=== PATIENT | male | born 1935 | race Caucasian/White ===

== ENCOUNTER 2017-05-15 09:05 | Day surgery (SDC) | payer MEDICARE ==
[~2017-05-15] VITALS: Ht 182.9 cm; Wt 93.0 kg
[~2017-05-15 09:05] MED LIST: /METO25TAB PO; ACETAMINOPHEN 325 MG TAB PO PRN; ASPI81TA85 PO; ATOR40TA75 PO; BENI5TAB PO; BSS with VANC/TOB/EPI for EYE CASES IR ONE; COUM1TAB14 PO; CYCLOPENTOLATE 2% OPHTH SOLN 2ML BTL OD ONE; FLOM5CAP PO; HEALON DUET (HEALON 10MG/ML 0.55ML & HEALON ENDOCOAT 30MG/ML 0.85ML) As Ordered ONE; HYDR12.55 PO; INVO100T PO; LIDOCAINE 1% SDV 5 ML VIAL As Ordered ONE; LIDOCAINE 3.5 % 1ML OPHTH TOPICAL GEL OU ONE; METO1TAB87 PO; MICR8CAP PO; MOXIFLOXACIN IN BSS 0.25MG/0.25ML INTRACAMERAL INJ (OR EYE ONLY)(J2280) As Ordered ONE; OFLOXACIN 0.3 % (OCUFLOX) OPTH SOL 5ML OD ONE; OMEP20CA3 PO; PACE400T PO; PHENYLEPHRINE 2.5% OPHTH SOL 2ML OD ONE; POVIDONE-IODINE 5% OPHTH PREP SOL 30ML As Ordered ONE; PRIL20CA PO; PROPARACAINE 0.5% OPHTH SOL 15ML OD PRN; ROPI1TAB PO; TRIAMCINOLONE PRES FR 40 MG/ML 1ML(TRIESENCE)(OR EYE ONLY)(J3300 PER 1MG) As Ordered ONE; TROPICAMIDE 1% OPHTH SOLN 2ML OD ONE; XERALTO PO
[2017-05-15] MEDS ORDERED: LR 1,000 ML IV ONE (09:15)
[2017-05-15] MEDS ORDERED: LIDOCAINE 1% MDV 20ML VIAL SQ ONE ×2 (09:15→10:15)
[2017-05-15] MEDS ORDERED: TROPICAMIDE 1% OPHTH SOLN 2ML As Ordered ONE (09:43)
[2017-05-15] MEDS ORDERED: CYCLOPENTOLATE 2% OPHTH SOLN 2ML BTL As Ordered ONE (09:43)
[2017-05-15] MEDS ORDERED: PHENYLEPHRINE 2.5% OPHTH SOL 2ML As Ordered ONE (09:43)
[2017-05-15] MEDS ORDERED: OFLOXACIN 0.3 % (OCUFLOX) OPTH SOL 5ML As Ordered ONE (09:43)
[2017-05-15] MEDS ORDERED: METOPROLOL TART 25 MG TABLET PO ONE (10:15)
[2017-05-15 10:21] VITALS: BP 187/87
[2017-05-15] MEDS ORDERED: MIDAZOLAM INJ 2 MG/2 ML VIAL (J2250) As Ordered ONE (10:49)
[2017-05-15] MEDS ORDERED: fentaNYL 100 MCG/2 ML INJECTION (J3010) As Ordered ONE (10:50)
[2017-05-15 11:35] VITALS: BP 185/86
[2017-05-15] MEDS ORDERED: AcetaZOLAMIDE 500 MG ER CAP PO ONE (11:45)
[2017-05-15] MEDS ORDERED: KETOROLAC 0.5% OPHTH SOLN OD ONE (11:45)
[2017-05-15] MEDS ORDERED: TRIMETHOBENZAMIDE 300 MG CAP PO PRN (11:45)
--- NOTE | 2017-05-17 09:54 | RO ---
DATE OF PROCEDURE: 05/15/2017 PREPROCEDURE DIAGNOSIS: Cataract of left eye. POSTPROCEDURE DIAGNOSIS: Cataract of left eye. PROCEDURE: Femtosecond laser and phacoemulsification of the intraocular lens with lens implantation left eye. Intraocular lens power used was Hoya, model 250, power 20 diopter. SURGEON: Richmond Head MD BLACKJACK DEALER: None. ANESTHESIA: Local IV standby. FINDINGS: Cataract of left eye. COMPLICATIONS: None. DESCRIPTION OF PROCEDURE: The patient was brought to the operating room and laid in supine position. A lid speculum was placed, and patient was brought under the femtosecond laser. After the satisfactory placement of the patient interface, primary incision, secondary incision, and arcuate incisions with lens fragmentation was done without any complication per plan. The patients interface was then removed and lid speculum removed. Patient was placed under the microscope. The eye was prepped and draped in a sterile fashion for ophthalmic surgery. Lid speculum was placed. The secondary incision was opened, and EndoCoat was injected into the anterior chamber. The temporal clear corneal incision was then opened and capsulorrhexis removed, followed by hydrodissection. This was followed by phacoemulsification of the lens within the capsular bag. Cortical material was then aspirated, and Healon was injected into the capsular bag. Intraocular lens was then placed. Excess Healon was aspirated. Wound was hydrated. The lid speculum was removed, and patient was returned to the recovery room in stable condition.
[2017-06-14] MEDS ORDERED: IMBR1CAP PO (13:15)
[2017-06-14] MEDS ORDERED: MULT1TAB10 PO (13:15)
[2017-06-14] MEDS ORDERED: PREDOPD OD (13:16)
== END 2017-05-15 11:53 | disposition home or self-care (01) ==
LOC: M SDC 09:05
PROVIDERS: ATTEND Ophthalmology
DX: H26.9 Unspecified cataract (principal); I25.10 Atherosclerotic heart disease of native coronary artery without angina pectoris; I10 Essential (primary) hypertension; E78.00 Pure hypercholesterolemia, unspecified; K59.00 Constipation, unspecified; K21.9 Gastro-esophageal reflux disease without esophagitis; Z79.899 Other long term (current) drug therapy; Z79.82 Long term (current) use of aspirin; Z79.01 Long term (current) use of anticoagulants; Z95.4 Presence of other heart-valve replacement; Z85.72 Personal history of non-Hodgkin lymphomas; Z92.21 Personal history of antineoplastic chemotherapy; Z92.3 Personal history of irradiation
CPT/HCPCS: 66984; J2250; J2280; J3010; J3300; V2632

== ENCOUNTER 2017-05-19 09:55 | Emergency (ER) | payer MEDICARE ==
[~2017-05-19] VITALS: Ht 182.9 cm; Wt 90.9 kg
[~2017-05-19 09:55] MED LIST changes: -ACETAMINOPHEN 325 MG TAB PO PRN; -BSS with VANC/TOB/EPI for EYE CASES IR ONE; -CYCLOPENTOLATE 2% OPHTH SOLN 2ML BTL OD ONE; -HEALON DUET (HEALON 10MG/ML 0.55ML & HEALON ENDOCOAT 30MG/ML 0.85ML) As Ordered ONE; -LIDOCAINE 1% SDV 5 ML VIAL As Ordered ONE; -LIDOCAINE 3.5 % 1ML OPHTH TOPICAL GEL OU ONE; -MOXIFLOXACIN IN BSS 0.25MG/0.25ML INTRACAMERAL INJ (OR EYE ONLY)(J2280) As Ordered ONE; -OFLOXACIN 0.3 % (OCUFLOX) OPTH SOL 5ML OD ONE; -PHENYLEPHRINE 2.5% OPHTH SOL 2ML OD ONE; -POVIDONE-IODINE 5% OPHTH PREP SOL 30ML As Ordered ONE; -PROPARACAINE 0.5% OPHTH SOL 15ML OD PRN; -TRIAMCINOLONE PRES FR 40 MG/ML 1ML(TRIESENCE)(OR EYE ONLY)(J3300 PER 1MG) As Ordered ONE; -TROPICAMIDE 1% OPHTH SOLN 2ML OD ONE
[2017-05-19] MEDS ORDERED: COLA100C5 PO (10:10)
[2017-05-19] MEDS ORDERED: FLEEENE4 PR (14:03)
[2017-05-19 14:18] VITALS: BP 163/79
[2017-06-14] MEDS ORDERED: IMBR1CAP PO (13:15)
[2017-06-14] MEDS ORDERED: MULT1TAB10 PO (13:15)
[2017-06-14] MEDS ORDERED: PREDOPD OD (13:16)
== END 2017-05-19 14:22 | disposition home or self-care (01) ==
LOC: M ED 09:55
DX: K59.00 Constipation, unspecified (principal); I25.10 Atherosclerotic heart disease of native coronary artery without angina pectoris; Z95.1 Presence of aortocoronary bypass graft

== ENCOUNTER 2017-05-21 04:44 | Emergency (ER) | payer MEDICARE ==
[~2017-05-21 04:44] MED LIST changes: +COLA100C5 PO; +FLEEENE4 PR
[2017-05-21] MEDS ORDERED: LACTULOSE 20 GM/30 ML SYRUP UD PO ONE (05:00)
[2017-05-21 05:33] VITALS: BP 136/75
[2017-06-14] MEDS ORDERED: IMBR1CAP PO (13:15)
[2017-06-14] MEDS ORDERED: MULT1TAB10 PO (13:15)
[2017-06-14] MEDS ORDERED: PREDOPD OD (13:16)
== END 2017-05-21 05:36 | disposition home or self-care (01) ==
LOC: M ED 04:44
DX: K59.00 Constipation, unspecified (principal); I25.10 Atherosclerotic heart disease of native coronary artery without angina pectoris; E11.9 Type 2 diabetes mellitus without complications; I10 Essential (primary) hypertension; E78.4 Other hyperlipidemia

== ENCOUNTER 2017-06-19 08:43 | Day surgery (SDC) | payer MEDICARE ==
[~2017-06-19] VITALS: Ht 182.9 cm; Wt 93.0 kg
[~2017-06-19 08:43] MED LIST changes: +BSS with VANC/TOB/EPI for EYE CASES IR ONE; +CYCLOPENTOLATE 2% OPHTH SOLN 2ML BTL OS ONE; +HEALON DUET (HEALON 10MG/ML 0.55ML & HEALON ENDOCOAT 30MG/ML 0.85ML) As Ordered ONE; +IMBR1CAP PO; +LIDOCAINE 1% SDV 5 ML VIAL As Ordered ONE; +LIDOCAINE 3.5 % 1ML OPHTH TOPICAL GEL OU ONE; +MOXIFLOXACIN IN BSS 0.25MG/0.25ML INTRACAMERAL INJ (OR EYE ONLY)(J2280) As Ordered ONE; +MULT1TAB10 PO; +OFLOXACIN 0.3 % (OCUFLOX) OPTH SOL 5ML OS ONE; +PHENYLEPHRINE 2.5% OPHTH SOL 2ML OS ONE; +POVIDONE-IODINE 5% OPHTH PREP SOL 30ML As Ordered ONE; +PREDOPD OD; +TRIAMCINOLONE PRES FR 40 MG/ML 1ML(TRIESENCE)(OR EYE ONLY)(J3300 PER 1MG) As Ordered ONE; +TROPICAMIDE 1% OPHTH SOLN 2ML OS ONE
[2017-06-19] MEDS ORDERED: LR 500 ML IV ONE (09:00)
[2017-06-19] MEDS ORDERED: MIDAZOLAM INJ 2 MG/2 ML VIAL (J2250) As Ordered ONE (09:27)
[2017-06-19] MEDS ORDERED: fentaNYL 100 MCG/2 ML INJECTION (J3010) As Ordered ONE (09:27)
[2017-06-19] MEDS ORDERED: CEFUROXIME 1MG/0.1ML INTRACAMERAL INJ As Ordered ONE (09:34)
[2017-06-19 10:15] VITALS: BP 130/60
--- NOTE | 2017-06-19 12:05 | RO ---
DATE OF PROCEDURE: 06/19/2017 PREPROCEDURE DIAGNOSIS: Cataract of left eye. POSTPROCEDURE DIAGNOSIS: Cataract of left eye. PROCEDURE: Femtosecond laser with phacoemulsification and intraocular lens implantation of Mic, power 19.5. SURGEON: Richmond Head MD DISABILITY RATER: None. ANESTHESIA: Local IV standby. COMPLICATIONS: None. DESCRIPTION OF PROCEDURE: The patient was brought to the operating room and laid in supine position. A lid speculum was placed, and patient was brought under the femtosecond laser. After the satisfactory placement of the patient interface, primary incision, secondary incision, and arcuate incisions with lens fragmentation was done without any complication per plan. The patients interface was then removed and lid speculum removed. Patient was placed under the microscope. The eye was prepped and draped in a sterile fashion for ophthalmic surgery. Lid speculum was placed. The secondary incision was opened, and EndoCoat was injected into the anterior chamber. The temporal clear corneal incision was then opened and capsulorrhexis removed, followed by hydrodissection. This was followed by phacoemulsification of the lens within the capsular bag. Cortical material was then aspirated, and Healon was injected into the capsular bag. Intraocular lens was then placed. Excess Healon was aspirated. Wound was hydrated. The lid speculum was removed, and patient was returned to the recovery room in stable condition.
== END 2017-06-19 10:35 | disposition home or self-care (01) ==
LOC: M SDC 08:43
PROVIDERS: ATTEND Ophthalmology
DX: H26.9 Unspecified cataract (principal); I49.9 Cardiac arrhythmia, unspecified; I10 Essential (primary) hypertension; E78.00 Pure hypercholesterolemia, unspecified; K59.00 Constipation, unspecified; K21.9 Gastro-esophageal reflux disease without esophagitis; M12.9 Arthropathy, unspecified; Z85.72 Personal history of non-Hodgkin lymphomas; Z92.21 Personal history of antineoplastic chemotherapy; Z92.3 Personal history of irradiation; Z95.4 Presence of other heart-valve replacement; Z79.899 Other long term (current) drug therapy; Z79.82 Long term (current) use of aspirin; Z79.01 Long term (current) use of anticoagulants
CPT/HCPCS: 66984; J2250; J2280; J3010; J3300; V2632

== ENCOUNTER → 2017-11-25 | Outpatient (REF) | payer MEDICARE, MEDICAID ==
[2017-11-25 14:22] LABS: FERRITIN 5 NG/ML (26-388); IRON (FE) 13 UG/DL (65-175); PERCENT SATURATION 3.5 % (19.7-50.0); TOTAL IRON BINDING CAPACITY 369 UG/DL (250-450)
== END ==
LOC: M LAB REF 13:36
DX: C91.10 Chronic lymphocytic leukemia of B-cell type not having achieved remission (principal)
CPT/HCPCS: 83550

== ENCOUNTER → 2018-01-27 | Outpatient (REF) | payer MEDICARE, MEDICAID ==
[2018-01-27 14:08] LABS: FERRITIN 46 NG/ML (26-388); IRON (FE) 16 UG/DL (65-175); PERCENT SATURATION 6.8 % (19.7-50.0); TOTAL IRON BINDING CAPACITY 235 UG/DL (250-450)
== END ==
LOC: M LAB REF 13:19
DX: C85.90 Non-Hodgkin lymphoma, unspecified, unspecified site (principal)
CPT/HCPCS: 83550

== ENCOUNTER → 2018-07-31 | Outpatient (REF) | payer MEDICARE | LOC: M LAB REF 08-01 12:49 | DX: D50.9 Iron deficiency anemia, unspecified (principal) | CPT/HCPCS: 82270 ==

== ENCOUNTER 2018-09-11 10:49 | Day surgery (SDC) | payer MEDICARE ==
[~2018-09-11] VITALS: Ht 182.9 cm; Wt 95.3 kg
[~2018-09-11 10:49] MED LIST changes: +AZEL0.05; -BSS with VANC/TOB/EPI for EYE CASES IR ONE; -CYCLOPENTOLATE 2% OPHTH SOLN 2ML BTL OS ONE; +FLOM0.4C39 PO; -FLOM5CAP PO; -HEALON DUET (HEALON 10MG/ML 0.55ML & HEALON ENDOCOAT 30MG/ML 0.85ML) As Ordered ONE; -LIDOCAINE 1% SDV 5 ML VIAL As Ordered ONE; -LIDOCAINE 3.5 % 1ML OPHTH TOPICAL GEL OU ONE; -MOXIFLOXACIN IN BSS 0.25MG/0.25ML INTRACAMERAL INJ (OR EYE ONLY)(J2280) As Ordered ONE; +NS 1,000 ML IV ONE; -OFLOXACIN 0.3 % (OCUFLOX) OPTH SOL 5ML OS ONE; -PHENYLEPHRINE 2.5% OPHTH SOL 2ML OS ONE; -POVIDONE-IODINE 5% OPHTH PREP SOL 30ML As Ordered ONE; -TRIAMCINOLONE PRES FR 40 MG/ML 1ML(TRIESENCE)(OR EYE ONLY)(J3300 PER 1MG) As Ordered ONE; -TROPICAMIDE 1% OPHTH SOLN 2ML OS ONE; +WARF-20 PO
[2018-09-11] MEDS ORDERED: LIDOCAINE 2% INJ 100 MG/5 ML SDV (FOR ANES.) As Ordered ONE (11:52)
[2018-09-11] MEDS ORDERED: PROPOFOL 200 MG/20 ML VIAL As Ordered ONE (11:52)
--- NOTE | 2018-09-11 11:59 | ROOR ---
Patient Name: Chris Ledezma Procedure Date: 09/11/2018 11:48 AM Date of : 1935 Age: 82 Room: [facility] Gender: Male Note Status: Finalized Procedure: Upper GI endoscopy Indications: Iron deficiency anemia Providers: Alexander Sepulveda Jr, MD Referring MD: SINDHU RODRIGUEZ MD Requesting Provider: Medicines: Propofol per Anesthesia Complications: No immediate complications. Procedure: Pre-Anesthesia Assessment: - Prior to the procedure, a History and Physical was performed, and patient medications and allergies were reviewed. The patient is competent. The risks and benefits of the procedure and the sedation options and risks were discussed with the patient. All questions were answered and informed consent was obtained. Patient identification and proposed procedure were verified by the physician and the nurse in the pre-procedure area and in the procedure room. Mental Status Examination: alert and oriented. Airway Examination: normal oropharyngeal airway and neck mobility. Respiratory Examination: clear to auscultation. CV Examination: normal. ASA Grade Assessment: II - A patient with mild systemic disease. After reviewing the risks and benefits, the patient was deemed in satisfactory condition to undergo the procedure. The anesthesia plan was to use moderate sedation / analgesia (conscious sedation). Immediately prior to administration of medications, the patient was re-assessed for adequacy to receive sedatives. The heart rate, respiratory rate, oxygen saturations, blood pressure, adequacy of pulmonary ventilation, and response to care were monitored throughout the procedure. The physical status of the patient was re-assessed after the procedure. The Endoscope was introduced through the mouth, and advanced to the second part of duodenum. The upper GI endoscopy was accomplished without difficulty. The patient tolerated the procedure well. Findings: The upper third of the esophagus, middle third of the esophagus, lower third of the esophagus and gastroesophageal junction were normal. Patchy moderately erythematous mucosa without bleeding was found in the gastric body and in the prepyloric region of the stomach. The cardia and gastric antrum were normal. The duodenal bulb, first portion of the duodenum and second portion of the duodenum were normal. Impression: - Normal upper third of esophagus, middle third of esophagus, lower third of esophagus and gastroesophageal junction. - Erythematous mucosa in the gastric body and prepyloric region of the stomach. - Normal cardia and antrum. - Normal duodenal bulb, first portion of the duodenum and second portion of the duodenum. - No specimens collected. Recommendation: - Discharge patient to home (ambulatory). - Return to primary care physician as previously scheduled. Alexander Sepulveda MD Alexander Sepulveda Jr, MD 09/11/2018 11:59:19 AM This report has been signed electronically. Number of Addenda: 0 Note Initiated On: 09/11/2018 11:48 AM Estimated Blood Loss: Estimated blood loss: none.
--- NOTE | 2018-09-11 12:16 | ROOR ---
Patient Name: Chris Ledezma Procedure Date: 09/11/2018 11:49 AM Date of : 1935 Age: 82 Room: [facility] Gender: Male Note Status: Finalized Procedure: Colonoscopy Indications: Iron deficiency anemia Providers: Alexander Sepulveda Jr, MD Referring MD: SINDHU RODRIGUEZ MD Requesting Provider: Medicines: Propofol per Anesthesia Complications: No immediate complications. Procedure: Pre-Anesthesia Assessment: - Prior to the procedure, a History and Physical was performed, and patient medications and allergies were reviewed. The patient is competent. The risks and benefits of the procedure and the sedation options and risks were discussed with the patient. All questions were answered and informed consent was obtained. Patient identification and proposed procedure were verified by the physician and the nurse in the pre-procedure area and in the procedure room. Mental Status Examination: alert and oriented. Airway Examination: normal oropharyngeal airway and neck mobility. Respiratory Examination: clear to auscultation. CV Examination: normal. ASA Grade Assessment: II - A patient with mild systemic disease. After reviewing the risks and benefits, the patient was deemed in satisfactory condition to undergo the procedure. The anesthesia plan was to use moderate sedation / analgesia (conscious sedation). Immediately prior to administration of medications, the patient was re-assessed for adequacy to receive sedatives. The heart rate, respiratory rate, oxygen saturations, blood pressure, adequacy of pulmonary ventilation, and response to care were monitored throughout the procedure. The physical status of the patient was re-assessed after the procedure. The Colonoscope was introduced through the anus and advanced to the cecum, identified by appendiceal orifice and ileocecal valve. The colonoscopy was performed without difficulty. The patient tolerated the procedure well. The quality of the bowel preparation was adequate. Findings: The rectum, recto-sigmoid colon, sigmoid colon, descending colon, transverse colon, ascending colon, cecum, appendiceal orifice and ileocecal valve appeared normal. Impression: - The rectum, recto-sigmoid colon, sigmoid colon, descending colon, transverse colon, ascending colon, cecum, appendiceal orifice and ileocecal valve are normal. - No specimens collected. Recommendation: - Discharge patient to home (ambulatory). - Repeat colonoscopy in 10 years for screening purposes. Alexander Sepulveda MD Alexander Sepulveda Jr, MD 09/11/2018 12:16:17 PM This report has been signed electronically. Number of Addenda: 0 Note Initiated On: 09/11/2018 11:49 AM Estimated Blood Loss: Estimated blood loss: none.
[2018-09-11 12:42] VITALS: BP 165/77
[2018-09-17] MEDS ORDERED: AZEL0.055 (09:18)
[2018-09-17] MEDS ORDERED: CENTCHW4 PO (09:18)
[2018-09-17] MEDS ORDERED: METO1TAB87 PO (10:57)
[2018-09-17] MEDS ORDERED: IMBR1CAP PO (10:57)
== END 2018-09-11 12:53 | disposition home or self-care (01) ==
LOC: M OPP 10:49
PROVIDERS: ATTEND Surgery
DX: D50.9 Iron deficiency anemia, unspecified (principal); K31.89 Other diseases of stomach and duodenum

== ENCOUNTER 2018-11-01 09:14 | Emergency (ER) | payer MEDICARE ==
[~2018-11-01] VITALS: Ht 182.9 cm; Wt 90.9 kg
[~2018-11-01 09:14] MED LIST changes: +AZEL0.055; +CENTCHW4 PO; -NS 1,000 ML IV ONE; +[UNRECOGNIZED DRUG - CODE] PO
[2018-11-01 09:15] VITALS: BP 178/90
[2018-11-01] MEDS ORDERED: NASA0.9A NARES (09:40)
[2018-11-01] MEDS ORDERED: AMOX500T2 PO ×2 (09:40→09:47)
== END 2018-11-01 09:57 | disposition home or self-care (01) ==
LOC: M ED 09:14
DX: J01.90 Acute sinusitis, unspecified (principal); I10 Essential (primary) hypertension; E78.5 Hyperlipidemia, unspecified; I25.10 Atherosclerotic heart disease of native coronary artery without angina pectoris; K21.9 Gastro-esophageal reflux disease without esophagitis; R01.1 Cardiac murmur, unspecified; Z79.899 Other long term (current) drug therapy; Z79.01 Long term (current) use of anticoagulants

== ENCOUNTER → 2019-03-26 | Outpatient (CLI) | payer MEDICARE ==
[~2019-03-26] MED LIST changes: -/METO25TAB PO; +AMOX500T2 PO; +NASA0.9A NARES
[2019-03-26 09:07] LABS: HEMATOCRIT 45.3 % (42.0-52.0); MEAN CORPUSCULAR HEMOGLOBIN 29.5 pg (27.0-33.0); MEAN CORPUSCULAR HGB CONC 33.1 g/dl (32.0-36.5); MEAN CORPUSCULAR VOLUME 89.2 fl (80.0-96.0); RED BLOOD COUNT 5.08 10^6/uL (4.30-6.10); WHITE BLOOD COUNT 4.4 10^3/uL (4.0-10.0)
[2019-03-26 09:08] LABS: PLATELET COUNT, AUTOMATED 94 10^3/uL (150-450)
[2019-03-26 09:42] LABS: ALBUMIN 3.6 GM/DL (3.2-5.2); BILIRUBIN,TOTAL 0.7 MG/DL (0.2-1.0); CALCIUM LEVEL 8.5 MG/DL (8.8-10.2); CHOLESTEROL RISK RATIO 3.102 (<5); CREATININE FOR GFR 1.26 MG/DL (0.70-1.30); GLOMERULAR FILTRATION RATE 58.5 (>35); POTASSIUM SERUM 3.8 MEQ/L (3.5-5.1); PROSTATIC SPECIFIC AG MONITOR 7.99 NG/ML (< 4.00); THYROID STIMULATING HORMONE 4.37 uIU/ML (0.358-3.740); TOTAL PROTEIN 6.2 GM/DL (6.4-8.2)
[2019-03-26 10:07] LABS: HEMOGLOBIN A1c 5.5 %
[2019-03-26 10:37] LABS: TOTAL 25(OH) VITAMIN D 27.1 NG/ML (30.0-100.0)
== END ==
LOC: M WUC 08:08
PROVIDERS: ATTEND Family Medicine
DX: D64.9 Anemia, unspecified (principal); R53.83 Other fatigue; E03.9 Hypothyroidism, unspecified; Z79.01 Long term (current) use of anticoagulants

== ENCOUNTER 2019-04-13 18:35 | Emergency (ER) | payer MEDICARE ==
[~2019-04-13] VITALS: Ht 182.9 cm; Wt 90.5 kg
[~2019-04-13 18:35] MED LIST changes: -OMEP20CA3 PO; +OMEP20CA4 PO
[2019-04-13] MEDS ORDERED: WARF05TA PO (18:58)
[2019-04-13] MEDS ORDERED: RANI300T PO (18:59)
[2019-04-13] MEDS ORDERED: hydrALAZINE INJ 20 MG/ML VIAL IV STA (19:18)
[2019-04-13] MEDS ORDERED: ONDANSETRON 4MG/2ML VIAL (J2405) IV ONE (19:30)
[2019-04-13] MEDS ORDERED: MORPHINE 4 MG/ML 1ML VIAL/SYRINGE (J2270) IV ONE (19:30)
[2019-04-13 20:10] LABS: INR 2.62; PARTIAL THROMBOPLASTIN TIME 35.4 SECONDS (25.0-38.4); PROTHROMBIN TIME 27.9 SECONDS (11.8-14.0)
[2019-04-13 20:18] VITALS: BP 209/90
[2019-04-13 20:24] LABS: ALBUMIN 3.4 GM/DL (3.2-5.2); BILIRUBIN,DIRECT 0.2 MG/DL (0.0-0.2); BILIRUBIN,TOTAL 0.5 MG/DL (0.2-1.0); CALCIUM LEVEL 8.5 MG/DL (8.8-10.2); CREATININE FOR GFR 1.28 MG/DL (0.70-1.30); GLOMERULAR FILTRATION RATE 57.4 (>35); MB/CK RELATIVE INDEX 2.38 (< OR =4); POTASSIUM SERUM 4.3 MEQ/L (3.5-5.1); TOTAL PROTEIN 6.2 GM/DL (6.4-8.2); TROPONIN I 0.02 NG/ML (< 0.10)
[2019-04-13 20:26] LABS: BASO % 0.2 % (0.0-1.0); EOS # 0.1 10^3/uL (0.0-0.50); EOS % 1.4 % (0.0-3.0); HEMATOCRIT 44.3 % (42.0-52.0); HEMOGLOBIN 14.4 g/dl (13.5-17.5); LYMPH # 0.6 10^3/uL (1.5-4.5); LYMPH % 10.1 % (24.0-44.0); MEAN CORPUSCULAR HEMOGLOBIN 28.7 pg (27.0-33.0); MEAN CORPUSCULAR HGB CONC 32.5 g/dl (32.0-36.5); MEAN CORPUSCULAR VOLUME 88.4 fl (80.0-96.0); MONO # 0.4 10^3/uL (0.0-0.8); MONO % 7.1 % (0.0-5.0); NEUTROPHILS # 4.5 10^3/uL (1.8-7.7); PLATELET COUNT, AUTOMATED 100 10^3/uL (150-450); RED BLOOD COUNT 5.01 10^6/uL (4.30-6.10); WHITE BLOOD COUNT 5.5 10^3/uL (4.0-10.0)
--- NOTE | 2019-04-13 20:55 | REPVR ---
EXAM: CT Abdomen and Pelvis Without Contrast EXAM DATE/TIME: 04/13/2019 7:30 PM CLINICAL HISTORY: 83 years old, male; Abdominal pain; Flank; Right; Additional info: Right flank pain; R/O stone TECHNIQUE: Imaging protocol: Axial computed tomography images of the abdomen and pelvis without contrast. Coronal and sagittal reformatted images were created and reviewed. Radiation optimization: All CT scans at this facility use at least one of these dose optimization techniques: automated exposure control; mA and/or kV adjustment per patient size (includes targeted exams where dose is matched to clinical indication); or iterative reconstruction. COMPARISON: CR Spine. Lumbosacral, complete 06/07/2016 4:39 AM FINDINGS: Lungs: Linear stranding and groundglass at the lung bases, likely due to atelectasis and/or scarring. Liver: Coarse calcified hepatic granulomata. Gallbladder and bile ducts: No radiodense gallstones. No biliary ductal dilatation. Pancreas: Unremarkable. Spleen: Mild splenomegaly. Coarse calcified splenic granulomata. Adrenals: Unremarkable. Kidneys and ureters: Left renal atrophy with associated cortical cysts, measuring up to 1.3 x 1.2 cm. Nonobstructing bilateral renal calculi. No hydronephrosis. Stomach and bowel: Moderate amount of retained stool in the colon. Scattered colonic diverticula without evidence of diverticulitis. No obstruction. No bowel wall thickening. No pneumatosis. Appendix: Normal. Intraperitoneal space: No free fluid. No organized fluid collection. No free air. Vasculature: Moderate atherosclerotic disease. No aneurysm. Lymph nodes: No pathologically enlarged lymph nodes. Bladder: Mild circumferential urinary bladder wall thickening, possibly secondary to underdistention and/or chronic bladder outlet obstruction. Reproductive: Mildly enlarged prostate. Bones/joints: No acute osseous abnormality. Osteopenia. Degenerative changes. Large Schmorl's nodes at L1-L2. Soft tissues: Tiny, fat containing umbilical hernia. IMPRESSION: 1. Limited noncontrast examination. 2. Nonobstructing bilateral renal calculi. No hydronephrosis. 3. Mildly enlarged prostate. Correlate with clinical exam and PSA levels. 4. Mild circumferential urinary bladder wall thickening, possibly secondary to underdistention and/or chronic l obstruction. Correlate with urinalysis to exclude cystitis. 5. Additional findings, as above. Electronically signed by: Kevin Wilcox On 04/13/2019 20:55:02 PM
--- NOTE | 2019-04-13 20:59 | ECGEPIP ---
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
[2019-04-13 23:15] VITALS: BP 158/79
== END 2019-04-13 23:31 | disposition home or self-care (01) ==
LOC: M ED 18:35
DX: N20.0 Calculus of kidney (principal); I10 Essential (primary) hypertension; Z79.899 Other long term (current) drug therapy; Z79.01 Long term (current) use of anticoagulants
CPT/HCPCS: 74176; 80048; 80076; 81001; 82550; 82553; 83605; 83690; 84484; 85025; 85610; 85730; 86850; 86900; 86901; 93005; 96374; 96375; 99285; J2270; J2405

== ENCOUNTER → 2019-05-18 | Outpatient (CLI) | payer MEDICARE ==
[~2019-05-18] MED LIST changes: +RANI300T PO; +WARF05TA PO
== END ==
LOC: M WUC 10:53
PROVIDERS: ATTEND Family Medicine
DX: R97.20 Elevated prostate specific antigen [PSA] (principal)

== ENCOUNTER → 2019-06-30 | Outpatient (CLI) | payer MEDICARE ==
--- NOTE | 2019-06-30 13:56 | REP ---
Prostate sonography: History: Elevated PSA. Sonographic findings: Trans rectal prostate sonography demonstrates unremarkable seminal vesicles. Prostate gland is heterogeneously enlarged with calcifications and cystic changes noted. Glandular dimensions are measured at 5.4 x 3.1 x 4.8 cm with a calculated glandular volume of 41.4 ml. Transrectal sonographic guidance is provided to Dr. Turner who performed trans rectal ultrasound guided needle biopsy procedure . Electronically Signed by Jermaine Ulloa MD 06/30/2019 01:47 P
== END ==
LOC: M SMT PRO 08:58
PROVIDERS: ATTEND Urology
DX: R97.20 Elevated prostate specific antigen [PSA] (principal); N40.2 Nodular prostate without lower urinary tract symptoms
CPT/HCPCS: 55700; 76872; 76942; G0416

== ENCOUNTER 2019-07-17 22:55 | Emergency (ER) | payer MEDICARE ==
[~2019-07-17] VITALS: Ht 182.9 cm; Wt 93.2 kg
[2019-07-17 23:11] VITALS: BP 152/82
[2019-07-18 00:40] LABS: BASO % 0.3 % (0.0-1.0); EOS % 0.6 % (0.0-3.0); HEMATOCRIT 46.6 % (42.0-52.0); HEMOGLOBIN 15.3 g/dl (13.5-17.5); LYMPH # 0.5 10^3/uL (1.5-5.0); LYMPH % 7.7 % (24.0-44.0); MEAN CORPUSCULAR HGB CONC 32.8 g/dl (32.0-36.5); MEAN CORPUSCULAR VOLUME 88.4 fl (80.0-96.0); MONO # 0.4 10^3/uL (0.0-0.8); NEUTROPHILS # 5.7 10^3/uL (1.5-8.5); RED BLOOD COUNT 5.27 10^6/uL (4.30-6.10); WHITE BLOOD COUNT 6.7 10^3/uL (4.0-10.0)
[2019-07-18 00:41] LABS: PLATELET COUNT, AUTOMATED 91 10^3/uL (150-450)
[2019-07-18 01:10] LABS: ALBUMIN 3.6 GM/DL (3.2-5.2); BILIRUBIN,DIRECT 0.2 MG/DL (0.0-0.2); BILIRUBIN,TOTAL 0.5 MG/DL (0.2-1.0); CALCIUM LEVEL 8.6 MG/DL (8.8-10.2); CREATININE FOR GFR 1.27 MG/DL (0.70-1.30); GLOMERULAR FILTRATION RATE 57.9 (>35); POTASSIUM SERUM 4.1 MEQ/L (3.5-5.1)
[2019-07-18] MEDS ORDERED: ACETAMINOPHEN 500 MG TAB PO ONE (01:45)
[2019-07-18] MEDS ORDERED: LIDOCAINE 5% (LIDODERM) PATCH TD ONE (01:45)
[2019-07-18] MEDS ORDERED: ACET-683 PO (01:51)
[2019-07-18] MEDS ORDERED: LIDO5TD TOP (01:51)
[2019-07-18] MEDS ORDERED: **NOTE PATIENT COMMENT** MISC XX SCH (21:00)
== END 2019-07-18 02:05 | disposition home or self-care (01) ==
LOC: M ED 22:55
DX: S39.92XA Unspecified injury of lower back, initial encounter (principal); X58.XXXA Exposure to other specified factors, initial encounter; Y92.89 Other specified places as the place of occurrence of the external cause; M62.830 Muscle spasm of back; I10 Essential (primary) hypertension; E78.5 Hyperlipidemia, unspecified; K21.9 Gastro-esophageal reflux disease without esophagitis; Z79.899 Other long term (current) drug therapy; Z79.01 Long term (current) use of anticoagulants

== ENCOUNTER 2019-08-12 01:55 | Emergency (ER) | payer MEDICARE ==
[~2019-08-12] VITALS: Ht 182.9 cm; Wt 90.9 kg
[~2019-08-12 01:55] MED LIST changes: +ACET-683 PO; +LIDO5TD TOP
[2019-08-12] MEDS ORDERED: ONDANSETRON 4MG/2ML VIAL (J2405) IV ONE (02:45)
[2019-08-12] MEDS: MORPHINE 2 MG/ML 1ML VIAL (J2270) IV PRN ×2 (03:04→04:25)
[2019-08-12 03:06] LABS: BASO % 0.4 % (0.0-1.0); EOS # 0.1 10^3/uL (0.0-0.5); EOS % 1.3 % (0.0-3.0); HEMATOCRIT 47.3 % (42.0-52.0); HEMOGLOBIN 14.8 g/dl (13.5-17.5); LYMPH # 0.8 10^3/uL (1.5-5.0); LYMPH % 16.4 % (24.0-44.0); MEAN CORPUSCULAR HEMOGLOBIN 28.2 pg (27.0-33.0); MEAN CORPUSCULAR HGB CONC 31.3 g/dl (32.0-36.5); MEAN CORPUSCULAR VOLUME 90.3 fl (80.0-96.0); MONO # 0.5 10^3/uL (0.0-0.8); MONO % 11.1 % (0.0-5.0); NEUTROPHILS # 3.3 10^3/uL (1.5-8.5); NEUTROPHILS % 70.4 % (36.0-66.0); PLATELET COUNT, AUTOMATED 105 10^3/uL (150-450); RED BLOOD COUNT 5.24 10^6/uL (4.30-6.10); WHITE BLOOD COUNT 4.7 10^3/uL (4.0-10.0)
[2019-08-12 03:58] LABS: BLOOD UREA NITROGEN 18 MG/DL (7-18); C REACTIVE PROTEIN QUANTITATIV < 0.30 MG/DL (0.00-0.30); CALCIUM LEVEL 8.7 MG/DL (8.8-10.2); CARBON DIOXIDE LEVEL 27 MEQ/L (21-32); CHLORIDE LEVEL 109 MEQ/L (98-107); CREATININE FOR GFR 1.34 MG/DL (0.70-1.30); GLOMERULAR FILTRATION RATE 54.5 (>35); GLUCOSE, FASTING 103 MG/DL (70-100); POTASSIUM SERUM 3.9 MEQ/L (3.5-5.1); SODIUM LEVEL 142 MEQ/L (136-145)
--- NOTE | 2019-08-12 04:15 | REPVR ---
PROCEDURE INFORMATION: Exam: MR Lumbar Spine Without Contrast. Exam date and time: 08/12/2019 3:37 AM Clinical history: 83 years old, male; Patient HX: PT states HX prostate CA, as well as chronic low back pain, nki, pain has worsened over past several months PT denies prior lumbar mri but xrays are on pacs; Additional info: Acute left l2, l3 radiculopathy, HX cll, prostate CA TECHNIQUE: Imaging protocol: Multiplanar magnetic resonance images of the lumbar spine without contrast. COMPARISON: CR Spine. Lumbosacral, complete 06/07/2016 4:39 AM FINDINGS: Mild loss of inferior endplate height involving L1 and minimal loss of superior endplate involving L2. Mild associated edema more prominent at L1. Remainder demonstrates preserved height and AP alignment. Multilevel disc desiccation. Degenerative endplate signal without evidence of discitis/osteomyelitis. Conus medullaris terminates at L1. No epidural fluid collection. L1-L2: Minimal disc bulge without significant central or foraminal stenosis. L2-L3: Mild disc bulge and mild bilateral facet joint arthropathy. No significant central or foraminal stenosis. L2-L3: Mild to moderate disc bulge and mild bilateral facet joint arthropathy. No significant central or foraminal stenosis. L4-L5: Mild disc bulge with mild bilateral facet joint arthropathy. No significant central canal stenosis. There is mild left foraminal stenosis. L5-S1: Mild disc bulge. No significant central canal stenosis. There is moderate bilateral foraminal stenosis. IMPRESSION: 1. Mild loss of inferior endplate height involving L1 and minimal loss of superior endplate height involving L2. There mild is associated edema, and findings are likely subacute. 2. Mild for age degenerative change without significant central canal compromise. Electronically signed by: Frank Olivares On 08/12/2019 04:15:35 AM
[2019-08-12 04:21] LABS: ERYTHROCYTE SEDIMENTATION RATE 2 mm/hr (0-20)
[2019-08-12] MEDS ORDERED: CYCL5TAB PO (04:27)
[2019-08-12 06:24] VITALS: BP 178/94
[2019-08-13] MEDS ORDERED: CYCL5TAB PO (10:11)
[2019-08-13] MEDS ORDERED: MULT-40 PO (10:11)
[2019-08-13] MEDS ORDERED: EQL0.65S (10:11)
[2019-08-13] MEDS ORDERED: WARF-60 PO (10:11)
== END 2019-08-12 06:25 | disposition home or self-care (01) ==
LOC: M ED 01:55
DX: M51.36 Other intervertebral disc degeneration, lumbar region (principal); M48.07 Spinal stenosis, lumbosacral region; I10 Essential (primary) hypertension; E78.5 Hyperlipidemia, unspecified; C91.10 Chronic lymphocytic leukemia of B-cell type not having achieved remission; Z79.899 Other long term (current) drug therapy; Z79.01 Long term (current) use of anticoagulants

== ENCOUNTER 2019-08-13 07:09 | Inpatient (IN) | payer MEDICARE ==
[2019-08-13] VITALS (7 sets, daily range): BP systolic 174–236; BP diastolic 88–126
[~2019-08-13] VITALS: Ht 182.9 cm; Wt 89.2 kg
[~2019-08-13 07:09] MED LIST changes: +CYCL5TAB PO
[2019-08-13 08:39] LABS: HEMATOCRIT 45.6 % (42.0-52.0); HEMOGLOBIN 14.8 g/dl (13.5-17.5); MEAN CORPUSCULAR HEMOGLOBIN 28.6 pg (27.0-33.0); MEAN CORPUSCULAR HGB CONC 32.5 g/dl (32.0-36.5); MEAN CORPUSCULAR VOLUME 88.2 fl (80.0-96.0); PLATELET COUNT, AUTOMATED 108 10^3/uL (150-450); RED BLOOD COUNT 5.17 10^6/uL (4.30-6.10); WHITE BLOOD COUNT 5.5 10^3/uL (4.0-10.0)
[2019-08-13 08:50] LABS: PROTHROMBIN TIME 101.4 SECONDS (11.8-14.0)
[2019-08-13 08:56] LABS: INR 13.17
[2019-08-13 09:04] LABS: ALBUMIN 3.6 GM/DL (3.2-5.2); CREATININE FOR GFR 1.24 MG/DL (0.70-1.30); GLOMERULAR FILTRATION RATE 59.6 (>35); POTASSIUM SERUM 5.9 MEQ/L (3.5-5.1)
--- NOTE | 2019-08-13 09:16 | REP ---
CT abdomen and pelvis without IV or oral contrast: History: Hematuria. Back pain. Left-sided pain. Comparison CT study April 13, 2019. CT findings: Preliminary digital senior research executive radiograph demonstrates median sternotomy, aortic valve replacement, and left atrial appendage clip in the chest. Vascular calcification is noted. Bowel gas pattern is unremarkable. There are mild linear fibrotic changes in the lung bases. There are granulomatous calcifications in the liver and the spleen. No focal liver mass lesion is seen. No abnormality is noted in the gallbladder. The pancreas is unremarkable. No adrenal lesion is observed. There is profound atrophy of the left kidney and extensive atherosclerotic calcific plaquing is seen in the left renal artery. There is a small left renal cyst. There is a 3 mm intrarenal calculus in the lower pole collecting system of the left kidney as well. These findings are unchanged. The there is no evidence of hydronephrosis or other morphologic abnormality in the right kidney. No intrarenal calculus is seen in the right kidney today. No ureteral calculus. No retroperitoneal mass or adenopathy is observed. Small and large intestinal bowel loops are unremarkable in the abdomen and pelvis. There is sigmoid colon diverticulosis without CT evidence of diverticulitis. Urinary bladder is largely empty but appears intact. There are dystrophic calcifications in the enlarged prostate gland. Seminal vesicles are unremarkable. No pelvic mass or adenopathy is observed. No abdominal wall defect is seen. There are degenerative spondylosis changes in the lumbar spine. The appendix is not directly visualized. Impression: Marked atrophy left kidney. Intrarenal calculus lower pole left kidney without hydronephrosis. No other urinary tract calculus seen. Enlarged prostate. Left colonic diverticulosis. The appendix is not directly visualized. Electronically Signed by Jermaine Ulloa MD 08/13/2019 10:53 A
[2019-08-13] MEDS ORDERED: hydrALAZINE INJ 20 MG/ML VIAL IV STA ×2 (09:20→10:31)
[2019-08-13] MEDS ORDERED: PROTHROMBIN COMPLEX CONCEN IV ONE (09:30)
[2019-08-13] MEDS ORDERED: FLUID PLACE HOLDER IV ONE (09:30)
[2019-08-13] MEDS ORDERED: ACETAMINOPHEN 500 MG TAB PO ONE (09:45)
[2019-08-13] MEDS ORDERED: EQL0.65S (10:11)
[2019-08-13] MEDS ORDERED: WARF-60 PO (10:11)
[2019-08-13] MEDS ORDERED: CYCL5TAB PO (10:11)
[2019-08-13] MEDS ORDERED: MULT-40 PO (10:11)
[2019-08-13] MEDS ORDERED: PHYTONADIONE 10MG/ML INJECTION (J3430) SC ONE (10:15)
[2019-08-13] MEDS ORDERED: PHYTONADIONE INJection 10 MG in NS 50 ML IV ONE (10:30)
[2019-08-13] MEDS ORDERED: amLODIPine 5 MG TAB PO ONE (11:30)
--- NOTE | 2019-08-13 11:57 | HPEPDOC ---
General Date of Admission Aug 13, 2019 at 11:12 Date of Service: Aug 13, 2019 Chief Complaint The patient is a 83-year-old male admitted with a reason for visit of Blood In Urine. 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 Last night he did not have any blood in urine. Pateint was inteh ED here yesterday for back pain and left thigh pain. it was felt he was having a muscle spasm, his MRI showed L1, L2 subacute mild compression deformity without any canal stenosis or foraminal stenosis. He was given for muscle relaxants. he says the muscles relaxants worked very well and he was pain free overnight. But this morning the hematuria made him come to the ED. On arrival to the ED he was noted to have hypertensive urgency. His labs were significant for an INR of 13. He was give 2 doses of IV hydralazine in the ED , Vit k s/c and ordered for FFP. He also continued to have pain in the left thigh extending from the groin to the knee about 8/10 in intensity and it was burning and aching in nature and sharp without any radiation. He dienied any back pain today. He was admitted for hypertensive u rgency , supratherapeutic INR with bleeding. Home Medications Scheduled Atorvastatin Calcium (Atorvastatin Calcium) 40 Mg Tab, 40 MG PO DAILY, (R eported) Hydrochlorothiazide (Hydrochlorothiazide) 12.5 Mg Tab, 12.5 MG PO DAILY, (Reported) Ibrutinib (Imbruvica) 280 Mg Tablet, 280 MG PO DAILY Metoprolol Tartrate (Metoprolol Tartrate) 25 Mg Tab, 12.5 MG PO BID, (Reported) Multivitamin (Multivitamins) 1 Each Tablet, 1 TAB PO DAILY, (Reported) Omeprazole (Omeprazole) 20 Mg Cap, 20 MG PO DAILY, (Reported) Ranitidine HCl (Ranitidine HCl) 300 Mg Tablet, 1 TAB PO DAILY, (Reported) Tamsulosin HCl (Flomax) 0.4 Mg Cap, 0.4 MG PO QHS, (Reported) Warfarin Sodium (Warfarin Sodium) 6 Mg Tablet, 6 MG PO QHS, (Reported) Scheduled PRN Cyclobenzaprine HCl (Cyclobenzaprine HCl) 5 Mg Tablet, 5 MG PO TID PRN for SPASMS, (Reported) Sodium Chloride (Saline Nasal [place]) 88 Ml [place], 2 SPRAY NA QID PRN for CONGESTION, (Reported) Allergies Coded Allergies: No Known Allergies (Unverified , 05/15/17) Past Medical History Medical History CAD s/p CABG Aortic valve replaced status A fib Hypertension Hyperlipidemia Prostate cancer diagnosed on 06/30/19 biopsy awaiting further treatment CLL with chronic thrombocytopenia. 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 Family History Significant Family History: Heart disease (father and 6 brothers.), Hypertension (2 brothers) Social History Alcohol: Denies Drugs: denies A-FIB/CHADSVASC A-FIB History Current/History of A-Fib/PAF?: Yes Current PO Anticoag Therapy: Yes Review of Systems Constitutional: Denies: Chills, Fever, Night Sweats Eyes: Denies: Pain, Vision change ENT: Denies: Head Aches, Ear Pain, Dysphagia Skin: Denies: Rash, Lesions, Breakdown Pulmonary: Denies: Dyspnea, Cough Cardiovascular: Denies: Chest Pain, Palpitations, Orthopnea, Paroxysmal Noc. Dyspnea, Lt Headedness Gastrointestinal: Denies: Nausea, Vomiting, Abdominal Pain, Diarrhea Genitourinary: Reports: Hematuria; Denies: Dysuria, Frequency, Incontinence Musculoskeletal: Reports: Back Pain, Leg Pain (left anterior thigh), Spasms Neurological: Denies: Weakness, Numbness, Change in speech, Confusion Psych: Reports: Mood Normal; Denies: Depression, Memory Issues Physical Examination General Exam: Positive: Alert, Cooperative, No Acute Distress Eye Exam: Positive: PERRLA, Conjunctiva & lids normal, EOMI; Negative: Sclera icteric ENT Exam: Positive: Atraumatic, Mucous membr. moist/pink, Pharynx Normal Neck Exam: Positive: Supple; Negative: JVD, thyromegaly Chest Exam: Positive: Clear to auscultation, Normal air movement Heart Exam: Positive: Rate Normal, Regular Rhythm, Normal S1, Normal S2; Negative: Murmurs, Rubs Telemetry: Positive: No significant arrhythmia Abdomen Exam: Positive: Normal bowel sounds, Soft; Negative: Tenderness, Hepatospenomegaly Extremity Exam: Positive: Normal pulses; Negative: Clubbing, Cyanosis, Edema Skin Exam: Positive: Nl turgor and temperature; Negative: Breakdown, Lesion Neuro Exam: Positive: Normal Speech, Strength at 5/5 X4 ext, Normal Tone, C ranial Nerves 3-12 NL Vital Signs Vital Signs Date Time Temp Pulse Resp B/P (MAP) Pulse Ox O2 Delivery O2 Flow Rate FiO2 08/13/19 10:46 168/88 (114) 08/13/19 07:17 97.7 93 17 96 Room Air Laboratory Data Labs 24H Laboratory Tests 2 08/13/19 08:06: Nucleated Red Blood Cells % (auto) 0.0, Prothrombin Time 101.4H, Prothromb Time International Ratio 13.17*H, Activated Partial Thromboplast Time 71.0H, Urine Color JULY, Urine Appearance CLOUDYH, Urine pH 5.0, Urine Specific [place] 1.026, Urine Protein 2+H, Urine Glucose (UA) NEGATIVE, Urine Ketones TRACEH, Urine Blood 3+H, Urine Nitrite NEGATIVE, Urine Bilirubin NEGATIVE, Urine Urobilinogen 0.2, Urine Leukocyte Esterase NEGATIVE, Urine WBC (Auto) TNTCH, Urine RBC (Auto) TNTCH, Urine Hyaline Casts (Auto) 0, Urine Bacteria (Auto) NEGATIVE, Urine Squamous Epithelial Cells 0, Urine Mucus (Auto) SMALL, Urine Yeast-Like Cells (Auto) LARGEH, Urine Sperm (Auto) , Anion Gap 5L, Glomerular Filtration Rate 59.6, Calcium Level 9.0, Total Bilirubin 1.0, Aspartate Amino Transf (AST/SGOT) 54H, Alanine Aminotransferase (ALT/SGPT) 36, Alkaline Phosphatase 79, Total Protein 7.0, Albumin 3.6, Albumin/Globulin Ratio 1.06 CBC/BMP Laboratory Tests 08/13/19 08:06 Microbiology Microbiology 08/13/19 Urine Culture, Received Pending Assessment/Plan 83 year old male with PMH of CAD s/p CABG, Aortic valve replaced status, A fib on coumadin, Hypertension, Hyperlipidemia, Prostate cancer diagnosed on 06/30/19 biopsy awaiting further treatment, CLL with chronic thrombocytopenia, Kidney stones, 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 Last night he did not have any blood in urine. Patient was in the ED here yesterday for back pain and left thigh pain. it was felt he was having a muscle spasm, his MRI showed L1, L2 subacute mild compression deformity without any canal stenosis or foraminal stenosis. He was given for muscle relaxants. he says the muscles relaxants worked very well and he was pain free overnight. But this morning the hematuria made him come to the ED. On arrival to the ED he was noted to have hypertensive urgency. His labs were significant for an INR of 13. He was give 2 doses of IV hydralazine in the ED , Vit k s/c and ordered for FFP. He also continued to have pain in the left thigh extending from the groin to the knee about 8/10 in intensity and it was burning and aching in nature and sharp without any radiation. He dienied any back pain today. He was admitted for hypertensive urgency , supratherapeutic INR with bleeding. Coumadin toxicity with supratherapeutic INR and hematuria. unknown why it is up. Says was 2.5 2 weeks ago. There has been no change in diet or medications. no antibiotic use recently. Says he is sure he did not take any extra doses , there has been no change in coumadin dose. received Vit k will give 2 units of FFp also. will recheck in fe PM and tomorrow am Hypertensive urgency patient says this only happens when he is in the Emergency. In his ' office and with the oncologist his BP is always controlled. this could be due to pain and partly white coat hypertension. received hydralazine IV will give his metoprolol and start on amlodipine. continue HCTZ. monitor in PCU as may need further IV medications Leg pain/ back pain this start about a month ago MRI noted will give Tylenol and cyclobenzaprine. Afib with RVR stopped coumadin Hyperlipidemia continue stain CLL with chronic thrombocytopenia stable follows with oncologist can take his home med if available Recent diagnosis of prostate cancer. follow up urology for further plan. GERD on omeprazole. Plan / VTE VTE Prophylaxis Ordered?: Yes ALESSIO ROMERO MD Aug 13, 2019 11:57
[2019-08-13] MEDS ORDERED: hydrALAZINE INJ 20 MG/ML VIAL IV SCH (14:15)
[2019-08-13] MEDS ORDERED: SLF 3 ML SYR IV PRN (16:45)
[2019-08-13 16:54] LABS: INR 1.7; PROTHROMBIN TIME 19.8 SECONDS (11.8-14.0)
[2019-08-13 16:55] LABS: PARTIAL THROMBOPLASTIN TIME 33.7 SECONDS (25.0-38.4)
[2019-08-13] MEDS: hydrALAZINE INJ 20 MG/ML VIAL IV SCH ×2 (17:08→23:00)
[2019-08-13] MEDS: ATORVASTATIN 20 MG TAB PO SCH (17:38)
[2019-08-13] MEDS: OMEPRAZOLE 20 MG CAP PO SCH (17:38)
[2019-08-13] MEDS ORDERED: METOPROLOL TART 12.5 MG PER 1/2 TAB PO ONE (18:30)
[2019-08-13] MEDS: METOPROLOL TART 25 MG TABLET PO SCH (20:23)
[2019-08-13] MEDS: amLODIPine 5 MG TAB PO SCH (20:24)
[2019-08-13] MEDS: TAMSULOSIN 0.4 MG CAP PO SCH (20:24)
[2019-08-13] MEDS: SLF 3 ML SYR IV SCH (20:25)
[2019-08-13] MEDS ORDERED: METOPROLOL TART 12.5 MG PER 1/2 TAB PO SCH (21:00)
[2019-08-13] MEDS: ACETAMINOPHEN 500 MG TAB PO PRN (23:35)
[2019-08-14] VITALS: BP 151/84
[2019-08-14 04:00] VITALS: BP 121/63
[2019-08-14] MEDS: hydrALAZINE INJ 20 MG/ML VIAL IV SCH ×4 (05:00→23:00)
[2019-08-14 05:54] LABS: BASO % 0.2 % (0.0-1.0); EOS # 0.1 10^3/uL (0.0-0.5); EOS % 1.2 % (0.0-3.0); HEMATOCRIT 43.6 % (42.0-52.0); HEMOGLOBIN 13.7 g/dl (13.5-17.5); LYMPH % 18.9 % (24.0-44.0); MEAN CORPUSCULAR HEMOGLOBIN 27.9 pg (27.0-33.0); MEAN CORPUSCULAR HGB CONC 31.4 g/dl (32.0-36.5); MEAN CORPUSCULAR VOLUME 88.8 fl (80.0-96.0); MONO # 0.7 10^3/uL (0.0-0.8); MONO % 12.9 % (0.0-5.0); NEUTROPHILS # 3.3 10^3/uL (1.5-8.5); NEUTROPHILS % 66.4 % (36.0-66.0); PLATELET COUNT, AUTOMATED 115 10^3/uL (150-450); RED BLOOD COUNT 4.91 10^6/uL (4.30-6.10)
[2019-08-14 06:03] LABS: INR 1.36; PROTHROMBIN TIME 16.5 SECONDS (11.8-14.0)
[2019-08-14 06:19] LABS: CALCIUM LEVEL 8.5 MG/DL (8.8-10.2); CREATININE FOR GFR 1.51 MG/DL (0.70-1.30); GLOMERULAR FILTRATION RATE 47.5 (>35)
[2019-08-14] MEDS: SLF 3 ML SYR IV SCH ×3 (06:53→21:20)
[2019-08-14 08:00] VITALS: BP 175/85
[2019-08-14] MEDS ORDERED: WARFARIN SOD 4 MG TAB PO ONE (08:15)
[2019-08-14] MEDS: ATORVASTATIN 20 MG TAB PO SCH (09:39)
[2019-08-14] MEDS: ACETAMINOPHEN 500 MG TAB PO PRN ×3 (09:39→21:19)
[2019-08-14] MEDS: amLODIPine 5 MG TAB PO SCH ×2 (09:40→21:18)
[2019-08-14] MEDS: METOPROLOL TART 25 MG TABLET PO SCH ×2 (09:40→21:18)
[2019-08-14] MEDS: OMEPRAZOLE 20 MG CAP PO SCH (09:40)
[2019-08-14] MEDS: CYCLOBENZAPRINE 5MG TABLET PO PRN (11:24)
[2019-08-14 12:00] VITALS: BP 127/67
[2019-08-14 16:00] VITALS: BP 125/71
--- NOTE | 2019-08-14 17:16 | IPNPDOC ---
Subjective Date Seen The patient was seen on 08/14/19. Subjective Chief Complaint/HPI hematuria Objective Physical Examination General Exam: Positive: Alert, Cooperative, No Acute Distress Eye Exam: Positive: PERRLA ENT Exam: Positive: Atraumatic, Mucous membr. moist/pink Neck Exam: Positive: Supple Chest Exam: Positive: Clear to auscultation, Normal air movement Heart Exam: Positive: Irregular Rhythm, Normal S1, Normal S2; Negative: Murmurs, Rubs Telemetry: Positive: No significant arrhythmia Abdomen Exam: Positive: Normal bowel sounds, Soft; Negative: Tenderness Extremity Exam: Negative: Edema Skin Exam: Positive: Nl turgor and temperature Neuro Exam: Positive: Normal Speech, Strength at 5/5 X4 ext, Normal Tone Psych Exam: Positive: Mental status NL Assessment /Plan Assessment 83 y/o M with PMH of CAD s/p CABG, Aortic valve replaced status, A fib on coumadin, Hypertension, Hyperlipidemia, Prostate cancer diagnosed on 06/30/19 biopsy awaiting further treatment, CLL with chronic thrombocytopenia, Kidney stones, 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 Hematuria improving H/H stable Coumadin toxicity with supra therapeutic INR will f/u INR and dose coumadin Hypertensive urgency Resolved hydralazine IV prn will continue metoprolol 25 mg bid and new med amlodipine 5 mg BID> monitor in PCU as may need further IV medications Leg pain/ back pain resolved MRI- MRI showed L1, L2 subacute mild compression deformity without any canal stenosis or foraminal stenosis Tylenol and cyclobenzaprine. Afib with RVR resolved will resume coumadin Hyperlipidemia continue stain CLL with chronic thrombocytopenia stable follows with oncologist Recent diagnosis of prostate cancer. follow up urology for further plan. GERD on omeprazole. Plan/VTE VTE Prophylaxis Ordered?: Yes VS, I&O, 24H, Fishbone Vital Signs/I&O Vital Signs Date Time Temp Pulse Resp B/P (MAP) Pulse Ox O2 Delivery O2 Flow Rate FiO2 08/14/19 16:37 125/71 08/14/19 16:00 98.1 69 18 96 Room Air I&O- Last 24 Hours up to 6 AM 08/14/19 06:00 Intake Total 1160 ml Output Total 1675 ml Balance -515 ml Laboratory Data 24H LABS Laboratory Tests 2 08/14/19 05:22: Immature Granulocyte % (Auto) 0.4, Neutrophils (%) (Auto) 66.4H, Lymphocytes (%) (Auto) 18.9L, Monocytes (%) (Auto) 12.9H, Eosinophils (%) (Auto) 1.2, Basophils (%) (Auto) 0.2, Neutrophils # (Auto) 3.3, Lymphocytes # (Auto) 1.0L, Monocytes # (Auto) 0.7, Eosinophils # (Auto) 0.1, Basophils # (Auto) 0.0, Nucleated Red Blood Cells % (auto) 0.0, Prothrombin Time 16.5H, Prothromb Time International Ratio 1.36, Anion Gap 4L, Glomerular Filtration Rate 47.5, Calcium Level 8.5L CBC/BMP Laboratory Tests 08/14/19 05:22 Microbiology Microbiology 08/13/19 Urine Culture - Final, Complete FRANCINE GRAHAM MD Aug 14, 2019 17:16
[2019-08-14 20:00] VITALS: BP 146/80
[2019-08-14] MEDS: TAMSULOSIN 0.4 MG CAP PO SCH (21:19)
[2019-08-15] VITALS: BP 118/63
[2019-08-15] MEDS: CYCLOBENZAPRINE 5MG TABLET PO PRN (03:40)
[2019-08-15 04:00] VITALS: BP 118/68
[2019-08-15] MEDS: hydrALAZINE INJ 20 MG/ML VIAL IV SCH ×2 (05:00→11:33)
[2019-08-15 05:38] LABS: BASO % 0.4 % (0.0-1.0); EOS # 0.1 10^3/uL (0.0-0.5); EOS % 1.9 % (0.0-3.0); HEMOGLOBIN 13.6 g/dl (13.5-17.5); LYMPH # 0.6 10^3/uL (1.5-5.0); LYMPH % 12.2 % (24.0-44.0); MEAN CORPUSCULAR HEMOGLOBIN 28.9 pg (27.0-33.0); MEAN CORPUSCULAR HGB CONC 33.2 g/dl (32.0-36.5); MEAN CORPUSCULAR VOLUME 87.2 fl (80.0-96.0); MONO # 0.5 10^3/uL (0.0-0.8); MONO % 10.5 % (0.0-5.0); NEUTROPHILS # 3.6 10^3/uL (1.5-8.5); NEUTROPHILS % 74.6 % (36.0-66.0); PLATELET COUNT, AUTOMATED 106 10^3/uL (150-450); WHITE BLOOD COUNT 4.8 10^3/uL (4.0-10.0)
[2019-08-15] MEDS: ACETAMINOPHEN 500 MG TAB PO PRN (05:41)
[2019-08-15 05:45] LABS: INR 1.41
[2019-08-15 06:00] LABS: CALCIUM LEVEL 8.7 MG/DL (8.8-10.2); CREATININE FOR GFR 1.36 MG/DL (0.70-1.30); GLOMERULAR FILTRATION RATE 53.5 (>35)
[2019-08-15] MEDS: SLF 3 ML SYR IV SCH (06:56)
[2019-08-15 08:00] VITALS: BP 174/84
[2019-08-15] MEDS ORDERED: hydroCHLOROthiazide 12.5 MG CAPSULE PO SCH (09:00)
[2019-08-15] MEDS ORDERED: FAMOTIDINE 20 MG TAB PO SCH (09:00)
[2019-08-15] MEDS: ATORVASTATIN 20 MG TAB PO SCH (09:17)
[2019-08-15] MEDS: OMEPRAZOLE 20 MG CAP PO SCH (09:17)
[2019-08-15] MEDS ORDERED: CYCLOBENZAPRINE 10 MG TAB PO PRN (11:00)
[2019-08-15] MEDS ORDERED: METO25TA4 PO (11:20)
[2019-08-15] MEDS ORDERED: CYCL10TA PO (11:20)
[2019-08-15] MEDS ORDERED: METOPROLOL TART 25 MG TABLET PO ONE (11:30)
[2019-08-15 11:59] VITALS: BP 178/88
[2019-08-15 12:33] VITALS: BP 152/82
--- NOTE | 2019-08-15 15:20 | DS.PDOC ---
Discharge Summary General Date of Admission Aug 13, 2019 at 11:12 Date of Discharge 08/15/19 Discharge Summary ADMITTING DIAGNOSES: hematuria, supratherapeutic INR and hypertensive urgency DISCHARGE DIAGNOSES: resolved episode of hematuria, supratherapeutic INR and hypertensive urgency COMPLICATIONS/CHIEF COMPLAINT: Blood In Urine. 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 Last night he did not have any blood in urine. Pateint was inteh ED here yesterday for back pain and left thigh pain. it was felt he was having a muscle spasm, his MRI showed L1, L2 subacute mild compression deformity without any canal stenosis or foraminal stenosis. He was given for muscle relaxants. he says the muscles relaxants worked very well and he was pain free overnight. But this morning the hematuria made him come to the ED. On arrival to the ED he was noted to have hypertensive urgency. His labs were significant for an INR of 13. He was give 2 doses of IV hydralazine in the ED , Vit k s/c and ordered for FFP. He also continued to have pain in the left thigh extending from the groin to the knee about 8/10 in intensity and it was burning and aching in nature and sharp without any radiation. He dienied any back pain today. He was admitted for hypertensive urgency , supratherapeutic INR with bleeding." HOSPITAL COURSE: 83 y/o M was admitted for hematuria, supratherapeutic INR and hypertensive urgency. Pt was given vitamin and his INR normalized. Over the course of treatment pt's clinical condition improved hematuria resolved, BP was controlled with PO metoprolol and HCTZ. Coumadin was restarted for AFib but we were not aggressive to achieve therapeutic INR in view of hematuria. Episode of hematuria was most probably related to supratherapeutic INR. Pt was seen and examined at bedside on day of discharge. Pt stated that he is feeling fine and did not have any complaint. Pt was clinically and vitally stable at the time of discharge. Pt was instructed to f/u with PMD for INR check/coumadin dosing and management of chronic medical problems PHYSICAL EXAMINATION ON DISCHARGE: VITAL SIGNS: Please see below. GENERAL: comfortable HEENT: oral mucosa moist NECK: neck supple CARDIOVASCULAR EXAMINATION: Irregular rate and rhythm RESPIRATORY EXAMINATION: clear to auscultation ABDOMINAL EXAMINATION: soft, non tender. EXTREMITIES: no peripheral edema NEUROLOGICAL EXAMINATION: No focal deficit I spent 35 minutes of time in coordinating discharge of this patient. Vital Signs/I&Os Vital Signs Date Time Temp Pulse Resp B/P (MAP) Pulse Ox O2 Delivery O2 Flow Rate FiO2 08/15/19 12:33 152/82 (105) 08/15/19 12:00 97.5 83 18 97 Room Air I&O- Last 24 Hours up to 6 AM 08/15/19 06:00 Intake Total 1630 ml Output Total 950 ml Balance 680 ml Laboratory Data Labs 24H Laboratory Tests 2 08/15/19 05:18: Immature Granulocyte % (Auto) 0.4, Neutrophils (%) (Auto) 74.6H, Lymphocytes (%) (Auto) 12.2L, Monocytes (%) (Auto) 10.5H, Eosinophils (%) (Auto) 1.9, Basophils (%) (Auto) 0.4, Neutrophils # (Auto) 3.6, Lymphocytes # (Auto) 0.6L, Monocytes # (Auto) 0.5, Eosinophils # (Auto) 0.1, Basophils # (Auto) 0.0, Nucleated Red Blood Cells % (auto) 0.0, Prothrombin Time 17.0H, Prothromb Time International Ratio 1.41, Anion Gap 6L, Glomerular Filtration Rate 53.5, Calcium Level 8.7L CBC/BMP Laboratory Tests 08/15/19 05:18 Microbiology Microbiology 08/13/19 Urine Culture - Final, Complete Discharge Medications Scheduled Atorvastatin Calcium (Atorvastatin Calcium) 40 Mg Tab, 40 MG PO DAILY, (Reported) Hydrochlorothiazide (Hydrochlorothiazide) 12.5 Mg Tab, 12.5 MG PO DAILY, (Reported) Ibrutinib (Imbruvica) 280 Mg Tablet, 280 MG PO DAILY Metoprolol Tartrate (Metoprolol Tartrate) 25 Mg Tablet, 25 MG PO BID Multivitamin (Multivitamins) 1 Each Tablet, 1 TAB PO DAILY, (Reported) Omeprazole (Omeprazole) 20 Mg Cap, 20 MG PO DAILY, (Reported) Ranitidine HCl (Ranitidine HCl) 300 Mg Tablet, 1 TAB PO DAILY, (Reported) Tamsulosin HCl (Flomax) 0.4 Mg Cap, 0.4 MG PO QHS, (Reported) Warfarin Sodium (Warfarin Sodium) 6 Mg Tablet, 6 MG PO QHS, (Reported) Scheduled PRN Cyclobenzaprine HCl (Cyclobenzaprine HCl) 10 Mg Tablet, 10 MG PO TID PRN for SPASMS Sodium Chloride (Saline Nasal [place]) 88 Ml [place], 2 SPRAY NA QID PRN for CONGESTION, (Reported) Allergies Coded Allergies: No Known Allergies (Unverified , 05/15/17) FRANCINE GRAHAM MD Aug 15, 2019 12:46
[2019-08-15] MEDS ORDERED: WARFARIN SOD 3 MG TAB PO SCH (21:00)
== END 2019-08-15 15:23 | disposition home or self-care (01) | DRG 696 ==
LOC: M ED 07:09 → EDBD 07:09 → M ED INP 11:12 → M PCU 15:00
PROVIDERS: ADMIT Internal Medicine Nephrology; ATTEND Internal Medicine Nephrology
PROC: 30233K1 Transfusion of Nonautologous Frozen Plasma into Peripheral Vein, Percutaneous Approach (ICD-10-PCS; principal; 2019-08-13)
DX: R31.9 Hematuria, unspecified (principal); C91.10 Chronic lymphocytic leukemia of B-cell type not having achieved remission; I16.0 Hypertensive urgency; E78.5 Hyperlipidemia, unspecified; I25.10 Atherosclerotic heart disease of native coronary artery without angina pectoris; D69.6 Thrombocytopenia, unspecified; M51.36 Other intervertebral disc degeneration, lumbar region; I48.91 Unspecified atrial fibrillation; K21.9 Gastro-esophageal reflux disease without esophagitis; I10 Essential (primary) hypertension; M62.830 Muscle spasm of back; C61 Malignant neoplasm of prostate; Z95.5 Presence of coronary angioplasty implant and graft; Z95.1 Presence of aortocoronary bypass graft; Z87.442 Personal history of urinary calculi; Z79.01 Long term (current) use of anticoagulants; Z79.899 Other long term (current) drug therapy; Z85.819 Personal history of malignant neoplasm of unspecified site of lip, oral cavity, and pharynx

== ENCOUNTER 2019-09-27 21:13 | Emergency (ER) | payer MEDICARE ==
[~2019-09-27] VITALS: Ht 182.9 cm; Wt 93.2 kg
[~2019-09-27 21:13] MED LIST changes: +CYCL10TA PO; +EQL0.65S; +METO25TA4 PO; +MULT-40 PO; +OMEP-172 PO; -OMEP20CA4 PO; +WARF-60 PO
[2019-09-27] MEDS ORDERED: LABETALOL HCL 100 MG/20 ML VIAL IV STA ×2 (21:23→22:35)
[2019-09-27] MEDS ORDERED: MECLIZINE 25 MG TABLET PO ONE (21:30)
[2019-09-27 21:47] LABS: BASO % 0.3 % (0.0-1.0); HEMATOCRIT 41.6 % (42.0-52.0); HEMOGLOBIN 13.2 g/dl (13.5-17.5); LYMPH # 0.4 10^3/uL (1.5-5.0); LYMPH % 11.3 % (24.0-44.0); MEAN CORPUSCULAR HEMOGLOBIN 28.5 pg (27.0-33.0); MEAN CORPUSCULAR HGB CONC 31.7 g/dl (32.0-36.5); MEAN CORPUSCULAR VOLUME 89.8 fl (80.0-96.0); MONO # 0.3 10^3/uL (0.0-0.8); MONO % 6.6 % (0.0-5.0); NEUTROPHILS # 3.1 10^3/uL (1.5-8.5); NEUTROPHILS % 80.5 % (36.0-66.0); PLATELET COUNT, AUTOMATED 100 10^3/uL (150-450); RED BLOOD COUNT 4.63 10^6/uL (4.30-6.10); WHITE BLOOD COUNT 3.8 10^3/uL (4.0-10.0)
[2019-09-27 21:55] LABS: INR 2.01; PROTHROMBIN TIME 22.5 SECONDS (11.8-14.0)
--- NOTE | 2019-09-27 22:21 | REPVR ---
PROCEDURE INFORMATION: Exam: CT Head Without Contrast Exam date and time: 09/27/2019 10:03 PM Age: 83 years old Clinical indication: Syncope and collapse TECHNIQUE: Imaging protocol: Computed tomography of the head without contrast. Radiation optimization: All CT scans at this facility use at least one of these dose optimization techniques: automated exposure control; mA and/or kV adjustment per patient size (includes targeted exams where dose is matched to clinical indication); or iterative reconstruction. COMPARISON: No relevant prior studies available. FINDINGS: Brain: Predominantly hypodense right cerebral convexity subdural hemorrhage measures up to 1.4 cm. There are minimal hyperdense acute blood products. Isodense to hypodense left cerebral convexity subdural hemorrhage measures up to 6 mm. Midline shift: Midline shift to the left measure 7 mm. Ventricles: No hydrocephalus. Bones/joints: Unremarkable. No acute fracture. Sinuses: Minimal paranasal sinus disease. Mastoid air cells: Visualized mastoid air cells are well aerated. Soft tissues: Unremarkable. IMPRESSION: 1. Acute on chronic right cerebral convexity subdural hemorrhage measures up to 1.4 cm. Hemorrhage is predominantly chronic with small volume of acute blood products. 2. Subacute to chronic left cerebral convexity subdural hemorrhage measures up to 6 mm. 3. Midline shift to left measure 7 mm. Electronically signed by: Frank Olivares On 09/27/2019 22:21:26 PM
[2019-09-27 22:44] VITALS: BP 241/116
[2019-09-27 22:51] LABS: BLOOD UREA NITROGEN 18 MG/DL (7-18); CALCIUM LEVEL 8.2 MG/DL (8.8-10.2); CARBON DIOXIDE LEVEL 29 MEQ/L (21-32); CHLORIDE LEVEL 106 MEQ/L (98-107); CK-MB VALUE MASS < 1.0 NG/ML (<3.6); CPK CREATINE PHOSPHOKINASE 23 U/L (39-308); CREATININE FOR GFR 1.12 MG/DL (0.70-1.30); ETHYL ALCOHOL (ETHANOL) < 0.003 % (0.000-0.010); GLOMERULAR FILTRATION RATE > 60.0 (>35); GLUCOSE, FASTING 120 MG/DL (70-100); MB/CK RELATIVE INDEX 4.35 (< OR =4); POTASSIUM SERUM 4.3 MEQ/L (3.5-5.1); SODIUM LEVEL 141 MEQ/L (136-145); TROPONIN I < 0.02 NG/ML (< 0.10)
[2019-09-27] MEDS ORDERED: niCARdipine IV 40 MG in IV 1 EA IV SCH (23:00)
[2019-09-27] MEDS ORDERED: PHYTONADIONE 10MG/ML INJECTION (J3430) SC ONE (23:00)
[2019-09-27] MEDS ORDERED: PROTHROMBIN COMPLEX CONCEN IV ONE (23:00)
[2019-09-27 23:56] VITALS: BP 169/89
--- NOTE | 2019-09-28 06:37 | ECGEPIP ---
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
== END 2019-09-28 00:03 | disposition short-term general hospital (02) ==
LOC: M ED 21:13
DX: I62.00 Nontraumatic subdural hemorrhage, unspecified (principal); I16.0 Hypertensive urgency; I11.9 Hypertensive heart disease without heart failure; I49.3 Ventricular premature depolarization; R94.31 Abnormal electrocardiogram [ECG] [EKG]; Z79.01 Long term (current) use of anticoagulants; Z79.899 Other long term (current) drug therapy; Z95.1 Presence of aortocoronary bypass graft; Z95.4 Presence of other heart-valve replacement
CPT/HCPCS: 70450; 80048; 82550; 82553; 83735; 84443; 84484; 85025; 85610; 93005; 93041; 94760; 96374; 96375; 99285; C9132; G0480; J3430

== ENCOUNTER 2019-10-03 18:18 | Emergency (ER) | payer MEDICARE ==
[~2019-10-03] VITALS: Ht 182.9 cm; Wt 88.2 kg
[2019-10-03] MEDS ORDERED: PRED10TA2 PO (18:33)
[2019-10-03] MEDS ORDERED: SENN1TAB89 PO (18:33)
[2019-10-03] MEDS ORDERED: LISI-542 PO (18:33)
[2019-10-03] MEDS ORDERED: AMLO10TA5 PO (18:33)
[2019-10-03 18:59] LABS: HEMATOCRIT 46.5 % (42.0-52.0); HEMOGLOBIN 14.5 g/dl (13.5-17.5); LYMPH # 0.3 10^3/uL (1.5-5.0); LYMPH % 4.6 % (24.0-44.0); MEAN CORPUSCULAR HEMOGLOBIN 27.8 pg (27.0-33.0); MEAN CORPUSCULAR HGB CONC 31.2 g/dl (32.0-36.5); MEAN CORPUSCULAR VOLUME 89.1 fl (80.0-96.0); MONO # 0.3 10^3/uL (0.0-0.8); MONO % 4.3 % (0.0-5.0); NEUTROPHILS % 90.8 % (36.0-66.0); PLATELET COUNT, AUTOMATED 120 10^3/uL (150-450); RED BLOOD COUNT 5.22 10^6/uL (4.30-6.10); WHITE BLOOD COUNT 6.6 10^3/uL (4.0-10.0)
[2019-10-03] MEDS ORDERED: LACTULOSE 20 GM/30 ML SYRUP UD PO ONE ×2 (19:15→23:15)
[2019-10-03] MEDS ORDERED: cloNIDine 0.1 MG TAB PO ONE (19:15)
[2019-10-03 19:18] LABS: BLOOD UREA NITROGEN 24 MG/DL (7-18); CALCIUM LEVEL 8.4 MG/DL (8.8-10.2); CARBON DIOXIDE LEVEL 26 MEQ/L (21-32); CHLORIDE LEVEL 107 MEQ/L (98-107); CREATININE FOR GFR 1.08 MG/DL (0.70-1.30); GLOMERULAR FILTRATION RATE > 60.0 (>35); GLUCOSE, FASTING 126 MG/DL (70-100); POTASSIUM SERUM 4.2 MEQ/L (3.5-5.1); SODIUM LEVEL 141 MEQ/L (136-145)
[2019-10-03 20:22] VITALS: BP 225/102
[2019-10-03] MEDS ORDERED: **hydrALAZINE** 10 MG TAB PO ONE (20:30)
[2019-10-03] MEDS ORDERED: HYDR5TAB PO (23:03)
[2019-10-03 23:27] VITALS: BP 139/83
--- NOTE | 2019-10-04 05:56 | ECGEPIP ---
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
--- NOTE | 2019-10-04 09:22 | REP ---
CHEST X-RAY: Two views. HISTORY: Hypertension. COMPARISON STUDY: January 17, 2016. FINDINGS: EKG monitoring electrodes overlie the chest. The patient is status post median sternotomy, aortic valve replacement, and left atrial appendage clip placement. Heart is not enlarged. Pleural angles are sharp. There are degenerative changes in the thoracic spine and aorta. Pulmonary vasculature is not increased. Minimal linear fibrosis is seen in the left base. IMPRESSION: Status post aortic valve replacement. Linear fibrosis left base. Otherwise no active disease. Electronically Signed by Jermaine Ulloa MD 10/04/2019 10:37 A
== END 2019-10-03 23:39 | disposition home or self-care (01) ==
LOC: M ED 18:18
DX: I10 Essential (primary) hypertension (principal); K59.00 Constipation, unspecified; I25.10 Atherosclerotic heart disease of native coronary artery without angina pectoris; C91.10 Chronic lymphocytic leukemia of B-cell type not having achieved remission; Z79.899 Other long term (current) drug therapy

== ENCOUNTER 2019-10-20 19:56 | Emergency (ER) | payer MEDICARE ==
[~2019-10-20] VITALS: Ht 180.3 cm; Wt 88.6 kg
[~2019-10-20 19:56] MED LIST changes: +AMLO10TA5 PO; +FURO20TA2 PO; +HYDR5TAB PO; +LISI-542 PO; -OMEP-172 PO; +OMEP1CAP73 PO; +PRED10TA2 PO; +SENN1TAB89 PO; +ZANT150T40 PO
[2019-10-20 20:46] LABS: BASO % 0.2 % (0.0-1.0); EOS # 0.1 10^3/uL (0.0-0.5); EOS % 1.5 % (0.0-3.0); HEMATOCRIT 43.5 % (42.0-52.0); HEMOGLOBIN 13.4 g/dl (13.5-17.5); LYMPH # 0.4 10^3/uL (1.5-5.0); LYMPH % 8.6 % (24.0-44.0); MEAN CORPUSCULAR HGB CONC 30.8 g/dl (32.0-36.5); MEAN CORPUSCULAR VOLUME 90.8 fl (80.0-96.0); MONO # 0.4 10^3/uL (0.0-0.8); NEUTROPHILS # 3.8 10^3/uL (1.5-8.5); NEUTROPHILS % 81.1 % (36.0-66.0); RED BLOOD COUNT 4.79 10^6/uL (4.30-6.10); WHITE BLOOD COUNT 4.7 10^3/uL (4.0-10.0)
[2019-10-20 20:52] LABS: PLATELET COUNT, AUTOMATED 59 10^3/uL (150-450)
[2019-10-20 20:55] LABS: ALBUMIN 3.2 GM/DL (3.2-5.2); BILIRUBIN,DIRECT 0.2 MG/DL (0.0-0.2); BILIRUBIN,TOTAL 0.4 MG/DL (0.2-1.0); CALCIUM LEVEL 8.5 MG/DL (8.8-10.2); CREATININE FOR GFR 1.41 MG/DL (0.70-1.30); GLOMERULAR FILTRATION RATE 51.4 (>35); POTASSIUM SERUM 3.9 MEQ/L (3.5-5.1); TOTAL PROTEIN 5.7 GM/DL (6.4-8.2)
--- NOTE | 2019-10-20 20:56 | REPVR ---
PROCEDURE INFORMATION: Exam: CT Head Without Contrast Exam date and time: 10/20/2019 8:35 PM Age: 83 years old Clinical indication: Dizziness; Additional info: Diz/hx subdurals TECHNIQUE: Imaging protocol: Computed tomography of the head without contrast. Radiation optimization: All CT scans at this facility use at least one of these dose optimization techniques: automated exposure control; mA and/or kV adjustment per patient size (includes targeted exams where dose is matched to clinical indication); or iterative reconstruction. COMPARISON: CT Head without contrast 10/14/2019 8:49 PM FINDINGS: Brain: No significant change and size or appearance of chronic bilateral mixed density (isodense to predominantly hypodense) subdural hematomas, right greater than left, right measuring up to 0.8 cm in thickness, and left measuring up to 0.5 cm in thickness. Unchanged mild mass effect upon the right frontal gyri. Unchanged 0.3 cm right to left midline shift. No new areas of hemorrhage. No intracranial hemorrhage or extra-axial fluid collection. No evidence of mass effect or midline shift. Dye-white matter differentiation is intact. Ventricles: No ventriculomegaly. Bones/joints: No acute osseus lesion or fracture. Sinuses: Unremarkable as visualized. Mastoid air cells: Unremarkable. Soft tissues: Unremarkable. IMPRESSION: 1. No significant change and size or appearance of chronic bilateral mixed density (isodense to predominantly hypodense) subdural hematomas, since most recent CT. 2. Unchanged 0.3 cm right to left midline shift. Electronically signed by: Miguel Langley On 10/20/2019 20:56:27 PM
[2019-10-20] MEDS ORDERED: NS 500 ML IV ONE (21:15)
[2019-10-20 22:15] VITALS: BP 139/73
== END 2019-10-20 22:45 | disposition home or self-care (01) ==
LOC: M ED 19:56
DX: R11.2 Nausea with vomiting, unspecified (principal); T50.995A Adverse effect of other drugs, medicaments and biological substances, initial encounter; X58.XXXA Exposure to other specified factors, initial encounter; Y92.89 Other specified places as the place of occurrence of the external cause; C85.10 Unspecified B-cell lymphoma, unspecified site; K21.9 Gastro-esophageal reflux disease without esophagitis; Z79.899 Other long term (current) drug therapy

== ENCOUNTER 2019-12-16 22:53 | Emergency (ER) | payer MEDICARE ==
[~2019-12-16] VITALS: Ht 185.4 cm; Wt 81.8 kg
[~2019-12-16 22:53] MED LIST changes: -ROPI1TAB PO; +ROPI1TAB3 PO
--- NOTE | 2019-12-16 23:30 | REPVR ---
PROCEDURE INFORMATION: Exam: CT Head Without Contrast Exam date and time: 12/16/2019 11:07 PM Age: 84 years old Clinical indication: Other: CVA symptoms; Additional info: CVA - nursing interventions must not delay CT TECHNIQUE: Imaging protocol: Computed tomography of the head without contrast. Radiation optimization: All CT scans at this facility use at least one of these dose optimization techniques: automated exposure control; mA and/or kV adjustment per patient size (includes targeted exams where dose is matched to clinical indication); or iterative reconstruction. COMPARISON: CT Head without contrast 10/20/2019 8:33 PM FINDINGS: Brain: There is a right frontal subdural hematoma. Maximal thickness is 15 mm significantly increased from 8 mm on prior scan. There is acute hemorrhage superimposed on subacute and chronic hemorrhage. There is mass effect on the right cerebral hemisphere with 7 mm of midline shift which is increased from 3 mm on the prior scan. There is a small left subacute subdural hematoma measuring 2 mm, decreased from 5 mm on the prior scan. No parenchymal hemorrhage. No infarct. No subarachnoid hemorrhage. No effacement of basal cisterns. Ventricles: Normal. No ventriculomegaly. Bones/joints: Unremarkable. No acute fracture. Sinuses: Visualized sinuses are unremarkable. No fluid levels. Mastoid air cells: Visualized mastoid air cells are well aerated. Soft tissues: Unremarkable. IMPRESSION: 1. Right frontal subdural hematoma with acute hemorrhage superimposed on subacute and chronic hemorrhage. This has increased in size from 8-15 mm with increase in compression of right frontal lobe. Midline shift has increased from 3 mm to 7 mm. 2. Left frontal subdural has decreased from 5 mm to 2 mm. Electronically signed by: Spenser Underwood On 12/16/2019 23:30:22 PM
[2019-12-16 23:48] LABS: BASO % 0.2 % (0.0-1.0); EOS # 0.1 10^3/uL (0.0-0.5); EOS % 1.7 % (0.0-3.0); HEMATOCRIT 38.9 % (42.0-52.0); HEMOGLOBIN 12.6 g/dl (13.5-17.5); LYMPH # 0.6 10^3/uL (1.5-5.0); LYMPH % 14.8 % (24.0-44.0); MEAN CORPUSCULAR HEMOGLOBIN 28.4 pg (27.0-33.0); MEAN CORPUSCULAR HGB CONC 32.4 g/dl (32.0-36.5); MEAN CORPUSCULAR VOLUME 87.6 fl (80.0-96.0); MONO # 0.3 10^3/uL (0.0-0.8); MONO % 7.6 % (0.0-5.0); NEUTROPHILS # 3.2 10^3/uL (1.5-8.5); NEUTROPHILS % 75.5 % (36.0-66.0); PLATELET COUNT, AUTOMATED 101 10^3/uL (150-450); RED BLOOD COUNT 4.44 10^6/uL (4.30-6.10); WHITE BLOOD COUNT 4.2 10^3/uL (4.0-10.0)
[2019-12-16 23:56] LABS: INR 1.06; PARTIAL THROMBOPLASTIN TIME 29.1 SECONDS (25.0-38.4); PROTHROMBIN TIME 13.5 SECONDS (11.8-14.0)
[2019-12-17 00:16] VITALS: BP 133/70
[2019-12-17 00:47] LABS: ALBUMIN 3.2 GM/DL (3.2-5.2); ALT/SGPT 12 U/L (12-78); BILIRUBIN,DIRECT 0.1 MG/DL (0.0-0.2); BILIRUBIN,TOTAL 0.3 MG/DL (0.2-1.0); BLOOD UREA NITROGEN 22 MG/DL (7-18); CALCIUM LEVEL 8.6 MG/DL (8.8-10.2); CARBON DIOXIDE LEVEL 29 MEQ/L (21-32); CHLORIDE LEVEL 111 MEQ/L (98-107); CK-MB VALUE MASS < 1.0 NG/ML (<3.6); CPK CREATINE PHOSPHOKINASE 28 U/L (39-308); CREATININE FOR GFR 1.16 MG/DL (0.70-1.30); GLOMERULAR FILTRATION RATE > 60.0 (>35); GLUCOSE, FASTING 93 MG/DL (70-100); MB/CK RELATIVE INDEX 3.57 (< OR =4); POTASSIUM SERUM 3.8 MEQ/L (3.5-5.1); SODIUM LEVEL 143 MEQ/L (136-145); TOTAL PROTEIN 5.7 GM/DL (6.4-8.2); TROPONIN I < 0.02 NG/ML (< 0.10)
--- NOTE | 2019-12-17 04:40 | ECGEPIP ---
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
--- NOTE | 2019-12-17 08:12 | REP ---
Portable chest x-ray: Single view. History: CVA. Comparison chest x-ray: October 03, 2019. Findings: The patient is rotated somewhat to the left. The patient is status post aortic valve replacement. There is a left atrial appendage clip and median sternotomy wires are seen. Mild cardiomegaly is observed. No focal infiltrate is seen. Pleural angles are sharp. Pulmonary vasculature is not increased. Electronically Signed by Jermaine Ulloa MD 12/17/2019 08:04 A
== END 2019-12-17 00:30 | disposition short-term general hospital (02) ==
LOC: M ED 22:53
DX: I62.00 Nontraumatic subdural hemorrhage, unspecified (principal); I10 Essential (primary) hypertension; I48.91 Unspecified atrial fibrillation; E78.5 Hyperlipidemia, unspecified; C91.10 Chronic lymphocytic leukemia of B-cell type not having achieved remission; Z79.899 Other long term (current) drug therapy

== ENCOUNTER → 2020-01-27 | Outpatient (CLI) | payer MEDICARE ==
[~2020-01-27] MED LIST changes: +CYCL-707 PO; -CYCL10TA PO
[2020-01-27 16:42] LABS: BASO % 0.2 % (0.0-1.0); EOS % 0.2 % (0.0-3.0); HEMOGLOBIN 12.3 g/dl (13.5-17.5); LYMPH # 0.6 10^3/uL (1.5-5.0); LYMPH % 10.2 % (24.0-44.0); MEAN CORPUSCULAR HEMOGLOBIN 28.7 pg (27.0-33.0); MEAN CORPUSCULAR HGB CONC 32.4 g/dl (32.0-36.5); MEAN CORPUSCULAR VOLUME 88.6 fl (80.0-96.0); MONO # 0.3 10^3/uL (0.0-0.8); MONO % 4.8 % (0.0-5.0); NEUTROPHILS # 4.7 10^3/uL (1.5-8.5); NEUTROPHILS % 84.2 % (36.0-66.0); PLATELET COUNT, AUTOMATED 137 10^3/uL (150-450); RED BLOOD COUNT 4.29 10^6/uL (4.30-6.10); WHITE BLOOD COUNT 5.6 10^3/uL (4.0-10.0)
[2020-01-27 17:23] LABS: ALBUMIN 3.3 GM/DL (3.2-5.2); ALT/SGPT 16 U/L (12-78); BILIRUBIN,TOTAL 0.6 MG/DL (0.2-1.0); BLOOD UREA NITROGEN 21 MG/DL (7-18); CALCIUM LEVEL 8.6 MG/DL (8.8-10.2); CARBON DIOXIDE LEVEL 25 MEQ/L (21-32); CHLORIDE LEVEL 106 MEQ/L (98-107); CREATININE FOR GFR 1.19 MG/DL (0.70-1.30); GLOMERULAR FILTRATION RATE > 60.0 (>35); GLUCOSE, FASTING 132 MG/DL (70-100); POTASSIUM SERUM 4.2 MEQ/L (3.5-5.1); PROSTATIC SPECIFIC AG MONITOR 1.38 NG/ML (< 4.00); SODIUM LEVEL 140 MEQ/L (136-145); TOTAL PROTEIN 5.6 GM/DL (6.4-8.2)
== END ==
LOC: M WUC 13:38
PROVIDERS: ATTEND Internal Medicine Hematology
DX: C61 Malignant neoplasm of prostate (principal); C91.90 Lymphoid leukemia, unspecified not having achieved remission

== ENCOUNTER 2020-02-27 19:16 | Emergency (ER) | payer MEDICARE ==
[~2020-02-27] VITALS: Ht 182.9 cm; Wt 100.0 kg
[~2020-02-27 19:16] MED LIST changes: -COUM1TAB14 PO; +COUM4TAB8 PO
--- NOTE | 2020-02-27 20:09 | REPVR ---
PROCEDURE INFORMATION: Exam: CT Head Without Contrast Exam date and time: 02/27/2020 7:45 PM Age: 84 years old Clinical indication: Pain; Headache; Additional info: BOTELLO post subdural TECHNIQUE: Imaging protocol: Computed tomography of the head without contrast. Radiation optimization: All CT scans at this facility use at least one of these dose optimization techniques: automated exposure control; mA and/or kV adjustment per patient size (includes targeted exams where dose is matched to clinical indication); or iterative reconstruction. COMPARISON: CT Head without contrast 12/16/2019 11:15 PM FINDINGS: Brain: Status post evacuation of previously demonstrated subdural hematoma. Small residual mixed hypodense/ hyperdense collection demonstrated in the extra-axial space at the convexity of the right parietal lobe measuring up to 6 mm. No midline shift. There is mild age related parenchymal volume loss. White matter changes are demonstrated in the subcortical, centrum semiovale and periventricular white matter consistent with age related small vessel white matter angiopathic gliosis. Ventricles: The degree of ventricular dilatation is normal for age and/or degree of atrophy present. Bones/joints: Status post interval right temporoparietal craniotomy. Sinuses: Visualized sinuses are unremarkable. No fluid levels. Mastoid air cells: Visualized mastoid air cells are well aerated. Soft tissues: Unremarkable. IMPRESSION: 1. Status post evacuation of previously demonstrated subdural hematoma. Small residual mixed hypodense/ hyperdense collection demonstrated in the extra-axial space at the convexity of the right parietal lobe measuring up to 6 mm. No midline shift. 2. There is mild age related parenchymal volume loss. White matter changes are demonstrated in the subcortical, centrum semiovale and periventricular white matter consistent with age related small vessel white matter angiopathic gliosis. 3. The degree of ventricular dilatation is normal for age and/or degree of atrophy present. Electronically signed by: Vladimir Griffin On 02/27/2020 20:08:46 PM
[2020-02-27 21:00] LABS: BLOOD UREA NITROGEN 16 MG/DL (7-18); CALCIUM LEVEL 8.3 MG/DL (8.8-10.2); CARBON DIOXIDE LEVEL 29 MEQ/L (21-32); CHLORIDE LEVEL 109 MEQ/L (98-107); CREATININE FOR GFR 1.17 MG/DL (0.70-1.30); GLOMERULAR FILTRATION RATE > 60.0 (>35); GLUCOSE, FASTING 96 MG/DL (70-100); POTASSIUM SERUM 4.2 MEQ/L (3.5-5.1); SODIUM LEVEL 144 MEQ/L (136-145)
[2020-02-27] MEDS ORDERED: ENALAPRILAT INJ 2.5MG/2ML VIAL IV ONE ×2 (21:00→21:45)
[2020-02-27 21:51] VITALS: BP 189/96
[2020-02-27 22:15] VITALS: BP 155/76
[2020-02-27] MEDS ORDERED: LISI-542 PO (22:35)
--- NOTE | 2020-02-29 12:02 | ED PDOC ---
Post-Departure Follow-Up remy richmond faxed formal report of ct head for fu Holden French MD Feb 29, 2020 12:02
== END 2020-02-27 23:10 | disposition home or self-care (01) ==
LOC: M ED 19:16
DX: I10 Essential (primary) hypertension (principal); G40.909 Epilepsy, unspecified, not intractable, without status epilepticus; K21.9 Gastro-esophageal reflux disease without esophagitis; Z79.899 Other long term (current) drug therapy

== ENCOUNTER → 2020-10-03 | Outpatient (CLI) | payer MEDICARE ==
[~2020-10-03] MED LIST changes: -AMLO10TA5 PO; +AMLO1TAB25 PO; -ASPI81TA85 PO; +ASPI81TA86 PO; +LISI10TA4 PO; +LUPR45IN IM
--- NOTE | 2020-10-03 13:59 | REP ---
INDICATION: TRAUM SUBDR HEM W LOC OF UNSP DURATION, INIT. COMPARISON: Comparison studies are reviewed from February 27, 2020, December 16, 2019, and October 20, 2019.. TECHNIQUE: Helical scanning is acquired. 5 mm axial images were reformatted. Coronal MPR images were generated. FINDINGS: The patient is status post right frontotemporal craniotomy. This is unchanged. Vascular calcification is again noted in the distal internal carotid and distal vertebral arteries. The visualized paranasal sinuses are clear. The bony calvarium is otherwise intact. On soft tissue window settings, there is generalized volume loss mild in degree. The previously noted right frontotemporal subdural hematoma has resolved. No new extra-axial fluid collection is seen. There is no evidence of intracranial hemorrhage today. No infarct, mass, or midline shift is observed. IMPRESSION: Status post right sided craniotomy. Vascular calcification and generalized volume loss. No acute intracranial abnormality. No extra-axial fluid collection or hemorrhage seen.. <Electronically signed by Levon Ulloa > 10/03/20 [id number]
== END ==
LOC: M RAD 13:38
PROVIDERS: ATTEND Neurological Surgery
DX: S06.5X9A Traumatic subdural hemorrhage with loss of consciousness of unspecified duration, initial encounter (principal); X58.XXXA Exposure to other specified factors, initial encounter; Y92.9 Unspecified place or not applicable

== ENCOUNTER → 2020-11-17 | Outpatient (CLI) | payer MEDICARE ==
[~2020-11-17] MED LIST changes: -LISI-542 PO; +LISI-898 PO; +LISI10TA22 PO; -LISI10TA4 PO
[2020-11-17 19:23] LABS: HEMATOCRIT 37.1 % (42.0-52.0); HEMOGLOBIN 11.5 g/dl (13.5-17.5); MEAN CORPUSCULAR HEMOGLOBIN 28.3 pg (27.0-33.0); MEAN CORPUSCULAR VOLUME 91.2 fl (80.0-96.0); PLATELET COUNT, AUTOMATED 119 10^3/uL (150-450); RED BLOOD COUNT 4.07 10^6/uL (4.30-6.10); WHITE BLOOD COUNT 3.8 10^3/uL (4.0-10.0)
[2020-11-17 19:37] LABS: HEMOGLOBIN A1c 5.8 %
[2020-11-17 20:00] LABS: ALBUMIN 3.4 GM/DL (3.2-5.2); BILIRUBIN,TOTAL 0.3 MG/DL (0.2-1.0); CALCIUM LEVEL 8.3 MG/DL (8.8-10.2); CHOLESTEROL RISK RATIO 5.911 (<5); CREATININE FOR GFR 1.37 MG/DL (0.70-1.30); GLOMERULAR FILTRATION RATE 52.8 (>35); POTASSIUM SERUM 4.4 MEQ/L (3.5-5.1); PROSTATIC SPECIFIC AG MONITOR 0.01 NG/ML (< 4.00); THYROID STIMULATING HORMONE 3.26 uIU/ML (0.358-3.740); TOTAL PROTEIN 5.7 GM/DL (6.4-8.2)
[2020-11-17 20:03] LABS: TOTAL 25(OH) VITAMIN D 22.9 NG/ML (30.0-100.0)
== END ==
LOC: M WUC 15:34
PROVIDERS: ATTEND Family Medicine
DX: E03.9 Hypothyroidism, unspecified (principal); R53.83 Other fatigue; I10 Essential (primary) hypertension; Z79.899 Other long term (current) drug therapy

== ENCOUNTER 2021-01-09 02:24 | Emergency (ER) | payer MEDICARE ==
[~2021-01-09] VITALS: Ht 182.9 cm; Wt 102.7 kg
[2021-01-09] MEDS ORDERED: AUGM0.05 TOP (02:38)
[2021-01-09] MEDS ORDERED: predniSONE 20 MG TAB PO ONE (03:05)
[2021-01-09] MEDS ORDERED: CETIRIZINE (ZyrTEC) 10 MG TAB PO ONE (03:05)
[2021-01-09] MEDS ORDERED: CETI10CA2 PO (03:09)
[2021-01-09] MEDS ORDERED: PRED20TA PO (03:09)
[2021-01-09 03:10] VITALS: BP 200/90
== END 2021-01-09 03:20 | disposition home or self-care (01) ==
LOC: M ED 02:24
DX: L30.9 Dermatitis, unspecified (principal); I10 Essential (primary) hypertension; E78.5 Hyperlipidemia, unspecified; K21.9 Gastro-esophageal reflux disease without esophagitis; I25.10 Atherosclerotic heart disease of native coronary artery without angina pectoris; Z79.899 Other long term (current) drug therapy

== ENCOUNTER → 2021-02-07 | Outpatient (CLI) | payer MEDICARE ==
[~2021-02-07] MED LIST changes: +AUGM0.05 TOP; +CETI10CA2 PO; +PRED20TA PO
--- NOTE | 2021-02-07 11:50 | REP ---
INDICATION: RT CLAVICULAR NECK SWELLING H/O CA ? SOLID VS CYST. COMPARISON: None. TECHNIQUE: Real-time sonographic evaluation of right supraclavicular region performed at the site of swelling. FINDINGS: No cystic or solid mass is seen. No fluid collection is seen. IMPRESSION: Negative ultrasound right supraclavicular region. <Electronically signed by Lei Dye > 02/07/21 [id number]
== END ==
LOC: M RAD 11:09
PROVIDERS: ATTEND Physician Assistant
DX: R22.1 Localized swelling, mass and lump, neck (principal); R49.0 Dysphonia

== ENCOUNTER → 2021-02-08 | Outpatient (REF) | payer MEDICARE | LOC: M LAB REF 16:37 | PROVIDERS: ATTEND Physician Assistant | DX: L73.9 Follicular disorder, unspecified (principal) | CPT/HCPCS: 11104; 88305; G0463 ==

== ENCOUNTER 2021-03-08 20:00 | Inpatient (IN) | payer MEDICARE ==
[~2021-03-08] VITALS: Ht 182.9 cm; Wt 100.0 kg
--- NOTE | 2021-03-08 22:03 | REPVR ---
PROCEDURE INFORMATION: Exam: XR Left Hip Exam date and time: 03/08/2021 9:00 PM Age: 85 years old Clinical indication: Hip pain; Left hip; Additional info: Trauma TECHNIQUE: Imaging protocol: XR Left hip. Views: 2 or 3 views hip with pelvis when performed. COMPARISON: CT ABD PELVIS W/O CONTRAST 08/13/2019 8:23 AM FINDINGS: Bones/joints: Osteoporosis. [id number] degenerative spondylosis in the visualized lower lumbar spine. Bilateral degenerative changes in both hips. No fracture. Soft tissues: Unremarkable. IMPRESSION: No acute findings. Electronically signed by: Vladimir Griffin On 03/08/2021 22:02:54 PM
--- NOTE | 2021-03-08 23:50 | REPVR ---
PROCEDURE INFORMATION: Exam: CT Left Lower Extremity Without Contrast; Thigh Exam date and time: 03/08/2021 10:59 PM Age: 85 years old Clinical indication: Injury or trauma; Fall; Blunt trauma; Hip; Left; Additional info: Fracture femoral neck TECHNIQUE: Imaging protocol: CT of the Left lower extremity without contrast was performed. Exam focused on the thigh. Radiation optimization: All CT scans at this facility use at least one of these dose optimization techniques: automated exposure control; mA and/or kV adjustment per patient size (includes targeted exams where dose is matched to clinical indication); or iterative reconstruction. COMPARISON: No relevant prior studies available. FINDINGS: Bones/joints: Osseous structures are aligned normally. Acute transverse subcapital left femur neck fracture with mild varus angulation and impaction. No articular surface involvement of the femoral head No osseous obturator ring fracture mild. No evidence of femoral head osteonecrosis. No concerning osseous lesion. Mild age-appropriate degenerative joint space narrowing and osteophyte formation in the left hip. Soft tissues: Imaged soft tissues are unremarkable. IMPRESSION: Acute nondisplaced slightly impacted transverse subcapital right femur neck fracture with valgus angulation Electronically signed by: George Murray On 03/08/2021 23:49:44 PM
--- NOTE | 2021-03-09 00:46 | REPVR ---
PROCEDURE INFORMATION: Exam: XR Chest Exam date and time: 03/08/2021 11:59 PM Age: 85 years old Clinical indication: Other: Preop; Additional info: Pre-op TECHNIQUE: Imaging protocol: XR of the chest. Views: 1 view. COMPARISON: NM PORTABLE CHEST X-RAY 12/16/2019 11:15 PM FINDINGS: Lungs: Lungs are diffusely hypoexpanded. No evidence of pulmonary edema. No focal consolidation or parenchymal lung mass. Pleural spaces: No pleural effusion. No pneumothorax. Heart/Mediastinum: Heart and mediastinal contours are normal, given the degree of inflation. Left atrial appendage surgical clip is present Bones/joints: Median sternotomy and coronary bypass changes are present. Osseous structures show no concerning abnormality. Soft tissues: No asymmetry of the extrathoracic soft tissues. IMPRESSION: Hypoexpanded lungs, without evidence of active cardiopulmonary disease Electronically signed by: George Murray On 03/09/2021 00:45:16 AM
[2021-03-09 00:48] LABS: HEMATOCRIT 35.8 % (42.0-52.0); HEMOGLOBIN 11.4 g/dl (13.5-17.5); MEAN CORPUSCULAR HGB CONC 31.8 g/dl (32.0-36.5); PLATELET COUNT, AUTOMATED 132 10^3/uL (150-450); RED BLOOD COUNT 4.07 10^6/uL (4.30-6.10); WHITE BLOOD COUNT 7.4 10^3/uL (4.0-10.0)
[2021-03-09] MEDS ORDERED: CETI-24 PO (00:58)
[2021-03-09 01:02] LABS: INR 1.1; PARTIAL THROMBOPLASTIN TIME 26.4 SECONDS (24.2-38.5); PROTHROMBIN TIME 14.4 SECONDS (12.5-14.3)
[2021-03-09] MEDS ORDERED: LISI10TA22 PO (01:04)
[2021-03-09] MEDS ORDERED: KEPP10002 PO (01:04)
[2021-03-09] MEDS ORDERED: FLOM0.4C39 PO (01:04)
[2021-03-09] MEDS ORDERED: VIMP50TA3 PO (01:04)
[2021-03-09] MEDS ORDERED: DOXY100C PO (01:04)
[2021-03-09] MEDS ORDERED: HYDR-3363 PO (01:04)
[2021-03-09] MEDS ORDERED: ONDANSETRON 4MG/2ML VIAL IV ONE (01:05)
[2021-03-09] MEDS ORDERED: MORPHINE 2 MG/ML 1ML VIAL (J2270) IV PRN ×2 (01:05→01:45)
[2021-03-09 01:13] LABS: RSV AMPLIFICATION NEGATIVE (NEGATIVE)
[2021-03-09 01:14] LABS: CALCIUM LEVEL 8.5 MG/DL (8.8-10.2); CREATININE FOR GFR 1.35 MG/DL (0.70-1.30); GLOMERULAR FILTRATION RATE 53.7 (>35); POTASSIUM SERUM 4.5 MEQ/L (3.5-5.1)
[2021-03-09] MEDS ORDERED: MAALOX 30 ML SUSP *UDC PO PRN (01:45)
[2021-03-09] MEDS ORDERED: KETOROLAC 30 MG/ML 1ML VIAL IV PRN (01:45)
--- NOTE | 2021-03-09 02:04 | HPEPDOC ---
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 Patient states that he was changing the dressing on the wound he has been being treated for on his right great toe while sitting on the side of his bed. Patient states he believes he must have got too close to the side of the bed because he slipped off and landed on his rear. Patient states that he was unable to stand for a time after the fall and crawled into a nearby chair. Pt states that after some time, he was able to get up and walk, albeit slowly and painfully. As of my exam of patient, he states that he has bearable pain to the left hip but he is blaming most of it on the uncomfortable ED stretcher. Patient denies paresthesias, numbness, radiating pain, back pain, syncope, dizziness. Patient found to have left sided nondisplaced femoral neck fracture on imaging in the ED.] PAST MEDICAL HISTORY: 1. [See HPI PAST SURGICAL HISTORY: 1. [B/l cataract removal]. 2. [Cerebral aneurysm repair]. 3. [CABG 4. AVR 5. Prostate biopsy]. SOCIAL HISTORY: Tobacco use:[Denies] ETOH: [Denies] Illicit drug use: [Denies] FAMILY HISTORY: Reviewed - none pertinent ALLERGIES: Please see below. REVIEW OF SYSTEMS: CONSTITUTIONAL: [Denies fever, chills, fatigue]. HEENT: [Denies uri sx, headache]. CARDIOVASCULAR: [Denies chest pain, palpitations]. RESPIRATORY: [Denies cough, sob]. GASTROINTESTINAL: [Denies abd pain, n/v/d/c]. GENITOURINARY: [Denies dysuria]. SKIN: [Denies rash]. MUSCULOSKELETAL: [See HPI]. NEUROLOGICAL: [See HPI]. ENDOCRINE: [Denies hx of DM]. HEMATOLOGIC/LYMPHATIC: [Hx of CLL and large b cell lymphoma]. HOME MEDICATIONS: Please see below. PHYSICAL EXAMINATION: VITAL SIGNS: Please see below. GENERAL APPEARANCE: [This is a very pleasant 85 y/o male. He is resting in bed and appears somewhat uncomfortable.]. HEENT: [No mass or lesion. EOMI. No scleral icterus. Nares patent. Oral mucosa moist without erythema.]. CARDIOVASCULAR: [Regular rate, rhythm. No murmurs, rubs, gallops]. LUNGS: [Good air flow b/l. No wheezing, rales, rhonchi.]. ABDOMEN: [Soft, nontender]. MUSCULOSKELETAL: [Hip ROM not assessed d/t pain. Patient able to move feet freely. Toes pink and warm.]. EXTREMITIES: [No peripheral edema noted. No overlying skin changes. Pulses intact.]. NEUROLOGICAL: [Speech clear. A+Ox3. No focal deficits.]. PSYCHIATRIC: [Mood and affect appear appropriate.]. LABORATORY DATA: See below. IMAGING: [Hip/pelvis xray: FINDINGS: Bones/joints: Osteoporosis. Frhw-an-duriewoh degenerative spondylosis in the visualized lower lumbar spine. Bilateral degenerative changes in both hips. No fracture. Soft tissues: Unremarkable. IMPRESSION: No acute findings. Left hip CT: FINDINGS: Bones/joints: Osseous structures are aligned normally. Acute transverse subcapital left femur neck fracture with mild varus angulation and impaction. No articular surface involvement of the femoral head No osseous obturator ring fracture mild. No evidence of femoral head osteonecrosis. No concerning osseous lesion. Mild age-appropriate degenerative joint space narrowing and osteophyte formation in the left hip. Soft tissues: Imaged soft tissues are unremarkable. IMPRESSION: Acute nondisplaced slightly impacted transverse subcapital right femur neck fracture with valgus angulation CXR: FINDINGS: Lungs: Lungs are diffusely hypoexpanded. No evidence of pulmonary edema. No focal consolidation or parenchymal lung mass. Pleural spaces: No pleural effusion. No pneumothorax. Heart/Mediastinum: Heart and mediastinal contours are normal, given the degree of inflation. Left atrial appendage surgical clip is present Bones/joints: Median sternotomy and coronary bypass changes are present. Osseous structures show no concerning abnormality. Soft tissues: No asymmetry of the extrathoracic soft tissues. IMPRESSION: Hypoexpanded lungs, without evidence of active cardiopulmonary disease ] MICROBIOLOGY: Please see below. 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 Patient found to have nondisplaced left sided femoral neck fracture on imaging in the ED. Patient will be admitted to hospital service for pain management.]. . PLAN: 1. [Left femoral neck fx - Bedrest for now - Tylenol for mild pain, toradol for moderate pain, morphine for severe pain - Day team should consult orthopedic surgery for evaluation of need for surgical management - According to the Revised Cardiac Risk Index, this patient is a Class III risk (10.1%) of 30 day risk of , ID, or cardiac arrest post operatively. - Admitting to med surg for management 2. R Great toe wound - Patient follows Dr. Hogue outpatient, day team can consider consult 3. B cell lymphoma - Patient will need to have his maintenance drugs brought in, as they are not on our formulary 4. CAD s/p CABG - continue lisinopril, lasix 5. Subdural hematoma - continue keppra, lacosamide 6. htn - see #4 7. gerd - continue omeprazole 8. Anxiety - continue hydroxyzine DVT prophylaxis - Mechanical for now until we are sure pt does not need surgery]. Vital Signs Vital Signs Date Time Temp Pulse Resp B/P (MAP) Pulse Ox O2 Delivery O2 Flow Rate FiO2 03/09/21 01:15 19 96 Room Air 03/08/21 23:31 79 169/80 (109) 03/08/21 20:11 97.4 Laboratory Data Labs 24H Laboratory Tests 2 03/09/21 00:09: Nucleated Red Blood Cells % (auto) 0.0, Prothrombin Time 14.4H, Prothromb Time International Ratio 1.10, Activated Partial Thromboplast Time 26.4, Anion Gap 8, Glomerular Filtration Rate 53.7, Calcium Level 8.5L 03/09/21 00:13: Coronavirus (COVID-19)(PCR) NEGATIVE, Influenza Type A (RT-PCR) NEGATIVE, Influenza Type B (RT-PCR) NEGATIVE, Respiratory Syncytial Virus (PCR) NEGATIVE CBC/BMP Laboratory Tests 03/09/21 00:09 Home Medications Scheduled Doxycycline Hyclate (Doxycycline Hyclate) 100 Mg Capsule, 100 MG PO BID Furosemide (Furosemide) 20 Mg Tablet, 20 MG PO DAILY Hydroxyzine HCl (Hydroxyzine HCl) 25 Mg Tablet, 25 MG PO QPM TAKES AROUND 1700 Ibrutinib (Imbruvica) 140 Mg Capsule, 140 MG PO DAILY for CLL Lacosamide (Vimpat) 50 Mg Tablet, 50 MG PO BID Levetiracetam (Keppra) 1,000 Mg Tablet, 1,000 MG PO BID Lisinopril (Lisinopril) 10 Mg Tablet, 10 MG PO DAILY Omeprazole (Omeprazole) 20 Mg Cap, 20 MG PO DAILY Tamsulosin HCl (Flomax) 0.4 Mg Capsule, 0.4 MG PO QPM TAKES AROUND 1700 Allergies Coded Allergies: No Known Allergies (Unverified , 05/15/17) A-FIB/CHADSVASC A-FIB History Current/History of A-Fib/PAF?: Yes Current PO Anticoag Therapy: No (not on meds at home, possible surgery) Attending Note Attending Note time of service 150am Mr Ledezma is an 85 yr old M w CAD/CABG, prostate cancer, AVR, Afib, CLL/diffuse large B cell lymphoma on ibrutinib, HTN and GERD who developed a left hip fx after accidentally falling from a sitting position; he will be admitted for surgical management of a left hip fx. His physical exam was remarkable for generalized pallor; he was able to move his left leg despite the fx. It is unclear if this will be managed conservatively or w surgery nevertheless his RCRI score is 1 the only additional testing he will need prior to proceeding with surgery is a pro-BNP. If the pro-BNP is >300 he will need to be on telemetry and have troponins checked daily; if the pro-BNP is <300 he will no need additional testing prior to proceeding with surgery. rest per DENISA Zazueta's H&P KATIE ZAZUETA Mar 09, 2021 02:04 JOSHUA FLORENCE MD Mar 09, 2021 03:43
[2021-03-09 03:20] VITALS: BP 146/80
[2021-03-09 06:00] VITALS: BP 139/74
--- NOTE | 2021-03-09 08:44 | ECGEPIP ---
[facility] - ED Test Date: 2021-03-09 Pat Name: MARA GUSMAN Department: Room: - Gender: Male Sld Educational Aide: HC : 1935 Requested By: Erik Espinoza Order Number: [id number] Reading MD: Erik Helms Measurements Intervals [place] Rate: 83 P: -22 MT: 144 QRS: -29 QRSD: 88 T: 152 QT: 364 QTc: 427 Interpretive Statements Normal sinus rhythm T wave abnormality, consider lateral ischemia SIMILAR TO 12/16/19 Electronically Signed on 03-09-2021 8:43:36 EDT by Erik Helms
[2021-03-09] MEDS ORDERED: FUROSEMIDE 20 MG TAB PO SCH (09:00)
[2021-03-09] MEDS: levETIRAcetam 250MG TABLET (KEPPRA) PO SCH ×2 (09:35→21:08)
[2021-03-09] MEDS: OMEPRAZOLE 20 MG CAP PO SCH (09:35)
[2021-03-09] MEDS: LACOSAMIDE 50 MG TAB (VIMPAT) PO SCH ×2 (09:35→21:08)
[2021-03-09] MEDS: DOCUSATE SODIUM 100MG CAPSULE PO SCH ×2 (09:36→21:08)
[2021-03-09] MEDS ORDERED: DEXTROSE 50% 50 ML SYRINGE IV PRN (10:20)
[2021-03-09] MEDS ORDERED: GLUCOSE 4GM CHEW TABLET PO PRN (10:20)
[2021-03-09] MEDS ORDERED: GLUCAGON INJ 1MG VIAL SC PRN (10:20)
[2021-03-09] MEDS ORDERED: D5W/0.45% SODIUM CHLORIDE 1,000 ML IV SCH (10:20)
--- NOTE | 2021-03-09 12:44 | IPN ---
PROGRESS NOTE DATE: 03/09/2021 SUBJECTIVE: The patient is seen and examined at the bedside, the chart has been reviewed. The patient says that his pain is okay and does not bother him when he is not moving. Currently, no pain at the bedside, no fevers, chills, shortness of breath, chest pain, pressure or tightness. Patient did eat breakfast today and per Orthopedic Surgery they will try to repair his left hip today after 5 p.m. OBJECTIVE: VITAL SIGNS: Temperature 96.9, pulse 74, respiratory rate 20, blood pressure 139/74, 95% on room air. GENERAL: Patient is awake, alert and oriented x3, answering questions appropriately. LUNGS: Clear to auscultation. No wheezing, rales or rhonchi. HEART: S1 and S2, irregularly irregular but rate controlled. ABDOMEN: Obese, soft, nontender, nondistended. Positive bowel sounds. EXTREMITIES: No cyanosis, clubbing or any pitting edema. The patient's left lower extremity is rotated. ASSESSMENT AND PLAN: 1. Medical clearance. Patient is medically optimized to proceed to the Operating Room. Pain control, NPO status, IV fluids and hypoglycemic protocol. 2. Left femoral neck fracture. Orthopedic Surgery has been consulted. He may proceed to surgery. 3. Chronic atrial fibrillation. History of subdural hematoma. Patient had not been on any anticoagulants. 4. History of CLL with diffuse large B-cell lymphoma, chronic outpatient follow-up with his oncologist, may bring medication from home. 5. History of CABG on Lisinopril and Lasix, without any acute ischemic symptoms. [facility]
[2021-03-09 14:00] VITALS: BP 130/51
[2021-03-09] MEDS ORDERED: oxyCODONE 5MG TAB PO ONE (16:05)
[2021-03-09] MEDS ORDERED: ACETAMINOPHEN 500 MG TAB PO ONE (16:05)
--- NOTE | 2021-03-09 17:02 | REP ---
INDICATION: left wrist pain s/p fall. COMPARISON: None. TECHNIQUE: Only AP and lateral views were obtained. A trauma series consists of four views. The reason why of full series was not obtained is unknown to me. FINDINGS: Two limited views show no evidence of a gross fracture. IMPRESSION: There is no gross fracture seen on this limited two view exam as described above. Subtle fractures may not be imaged due to the limitations of this exam. Four view trauma series is recommended. <Electronically signed by Dharmesh Araujo > 03/09/21 [id number]
[2021-03-09 21:07] VITALS: BP 125/63
[2021-03-09] MEDS: hydrOXYzine 25 MG TAB PO SCH (21:08)
[2021-03-09] MEDS: TAMSULOSIN 0.4 MG CAP PO SCH (21:08)
[2021-03-10] VITALS (8 sets, daily range): BP systolic 112–141; BP diastolic 62–74
[2021-03-10] MEDS: ACETAMINOPHEN TAB 650MG DOSE (2X325MG) PO PRN ×2 (05:45→21:29)
[2021-03-10] MEDS: OMEPRAZOLE 20 MG CAP PO SCH (08:34)
[2021-03-10] MEDS: LACOSAMIDE 50 MG TAB (VIMPAT) PO SCH ×2 (08:34→21:29)
[2021-03-10] MEDS: DOCUSATE SODIUM 100MG CAPSULE PO SCH ×2 (08:34→21:28)
[2021-03-10] MEDS: levETIRAcetam 250MG TABLET (KEPPRA) PO SCH ×2 (08:35→21:28)
--- NOTE | 2021-03-10 10:09 | CR ---
CONSULTATION DATE: 03/09/2021 TIME: 11 P.M. CONSULTING SERVICE: Orthopedic surgery. CONSULTING PHYSICIAN: Hong Ward MD. HISTORY OF PRESENT ILLNESS: This is an 85-year-old male with a left femoral neck fracture Garden type I. The patient sustained a ground-level fall after clipping this toenail on the melany of 03/08/2021. The patient had difficulty with weightbearing after the ground-level fall and reported to the [facility] for further evaluation and treatment. The patient was admitted for pain control and medical comorbidities by the hospitalist service and orthopedic surgery was consulted for the aforementioned injury of the left hip. PAST MEDICAL HISTORY: 1. Cerebral aneurysm repair. 2. Coronary artery disease. 3. Aortic valve replacement (AVR). 4. Prostate hypertrophy. PAST SURGICAL HISTORY: 1. Cataract removal. 2. Cerebral aneurysm repair. 3. Coronary artery bypass grafting (CABG). 4. AVR. 5. Prostate biopsy. SOCIAL HISTORY: Denies alcohol use, smoking, or illicit drug activity. ALLERGIES: Please see internal medicine note. REVIEW OF SYSTEMS: A 14-point review of systems was negative unless is otherwise described in the HPI above. PHYSICAL EXAMINATION: GENERAL: Alert to person, time, and place. CARDIAC: Regular rate and rhythm. CHEST: Equal rise and fall of the chest bilaterally. EXTREMITIES: The patient's left hip was in flexion, abduction, and external rotation on presentation. He had tenderness to palpation about the left hip. He overweight was neurovascularly intact. 2+ dorsalis pedis pulse and posterior tibial arterial pulse. 5/5 motor strength to the EHL, FHL, tibialis anterior, gastrocnemius, and peroneal musculature. He had sensation intact to light touch to the deep, superficial, peroneal, sural saphenous, and tibial nerve distributions. Brisk capillary refill to the digits of the toes. Skin was intact. IMAGING DATA: Radiographs demonstrate left hip Garden type I-II valgus impacted fracture. IMPRESSION: An 85-year-old male with a left femoral neck fracture Garden type I-II. PLAN: The patient is a community ambulatory who is incapacitated by his left hip pain. The patient will undergo open reduction internal fixation of the left hip on 03/10/2021. The patient will be n.p.o. at 8 a.m. tomorrow on the 10 of March and the patient will undergo operative intervention at 5 p.m. tomorrow for a left femoral system implantation of the left femoral neck fracture. The patient was counseled on the aforementioned surgery and we will need consent, COVID testing, and n.p.o. status at 8 a.m. on 03/10/2021.
--- NOTE | 2021-03-10 13:55 | IPNPDOC ---
Date Seen The patient was seen on 03/10/21. Progress Note SUBJECTIVE: pain is controlled on current regimen. he c/o 4/10 pain on left wrist. xray negative . slept well. no c/o sob, cp, pressure. medically optimized to proceed to surgery. OBJECTIVE: PHYSICAL EXAM: VITALS: SEE BELOW GENERAL: Patient is awake, alert and oriented x3, answering questions appropriately.no respiratory distress. no pallor HEENT: symmetric face. no jvd no thyromegaly no carotid bruit. well healed surgical scars on scalp. LUNGS: Clear to auscultation. No wheezing, rales or rhonchi. HEART: S1 and S2, irregularly irregular but rate controlled. ABDOMEN: Obese, soft, nontender, nondistended. Positive bowel sounds. EXTREMITIES: No cyanosis, clubbing or any pitting edema. The patient's left lower extremity is rotated. LABORATORY DATA,IMAGING STUDIES, MICROBIOLOGY: REVIEWED ASSESSMENT AND PLAN: 1. Medical clearance. Patient is medically optimized to proceed to the Operating Room. Pain control, NPO status, IV fluids and hypoglycemic protocol. 2. Left femoral neck fracture. Orthopedic Surgery has been consulted. He may proceed to surgery.PRN pain meds 3. Chronic atrial fibrillation. History of subdural hematoma. Patient had not been on any anticoagulants. 4. History of CLL with diffuse large B-cell lymphoma, chronic outpatient follow-up with his oncologist, may bring medication from home. 5. History of CABG on Lisinopril and Lasix, without any acute ischemic symptoms. 6. Mechanical fall. resulting in left fem neck fx. ARU postop. VS, I&O, 24H, Fishbone Vital Signs/I&O Vital Signs Date Time Temp Pulse Resp B/P (MAP) Pulse Ox O2 Delivery O2 Flow Rate FiO2 03/10/21 08:38 123/62 03/10/21 05:43 98.5 67 19 97 Room Air I&O- Last 24 Hours up to 6 AM 03/10/21 06:00 Intake Total 940 ml Output Total 575 ml Balance 365 ml NANCY JOHNSON MD Mar 10, 2021 13:55
[2021-03-10] MEDS ORDERED: LIDOCAINE 2% 100MG/5ML SDV (FOR ANES.) As Ordered ONE (13:59)
[2021-03-10] MEDS ORDERED: propofoL 200 MG/20 ML VIAL As Ordered ONE (13:59)
[2021-03-10] MEDS: D5W/0.45% SODIUM CHLORIDE 1,000 ML IV SCH (14:26)
[2021-03-10] MEDS ORDERED: MIDAZOLAM INJ 2MG/2ML VIAL (J2250 PER 1MG) As Ordered ONE (16:39)
[2021-03-10] MEDS ORDERED: fentaNYL 100 MCG/2 ML INJECTION (J3010) As Ordered ONE ×2 (16:39→18:10)
[2021-03-10] MEDS ORDERED: ETOMIDATE INJ 20MG/10ML VIAL As Ordered ONE (16:39)
[2021-03-10] MEDS ORDERED: ROCURONIUM BROMIDE 50 MG/5 ML VIAL As Ordered ONE ×2 (16:40→18:07)
[2021-03-10] MEDS ORDERED: PHENYLEPHRINE 10MG/ML 1ML VIAL (J2370 PER 1) As Ordered ONE (16:43)
[2021-03-10] MEDS ORDERED: TRANEXAMIC ACID 100 MG/ML 10ML VIAL As Ordered ONE (16:51)
[2021-03-10] MEDS ORDERED: SEVOFLURANE INHAL SOLN 250 ML BTL As Ordered ONE (16:54)
[2021-03-10] MEDS ORDERED: ceFAZolin 2 GM/D5W 50 ML IV BAG (J0690 PER 500MG) As Ordered ONE (17:15)
[2021-03-10] MEDS ORDERED: SUGAMMADEX SODIUM 500 MG/5 ML VIAL (BRIDION) As Ordered ONE (17:56)
[2021-03-10] MEDS ORDERED: ONDANSETRON 4MG/2ML VIAL As Ordered ONE (17:56)
[2021-03-10] MEDS ORDERED: ACETAMINOPHEN 1000MG 100ML IV BTL (OFIRMEV) (J0131 PER 10MG) As Ordered ONE (18:40)
[2021-03-10] MEDS ORDERED: BUPIVACAINE HCL 0.5% 30 ML VIAL As Ordered ONE (18:50)
[2021-03-10] MEDS ORDERED: oxyCODONE 5MG TAB PO PRN (19:10)
[2021-03-10] MEDS ORDERED: ONDANSETRON 4MG/2ML VIAL IV PRN (19:10)
[2021-03-10] MEDS ORDERED: fentaNYL 100 MCG/2 ML INJECTION (J3010) IV PRN (19:10)
[2021-03-10] MEDS ORDERED: LR 1,000 ML IV SCH (19:10)
--- NOTE | 2021-03-10 20:03 | REP ---
INDICATION: FLUORO GUIDANCE'. COMPARISON: None. TECHNIQUE: Four views. FINDINGS: A sequence of 4 last image hold fluoroscopically obtained spot radiographs of the hip document screw fixation of the hip. No laterality markers are visible. IMPRESSION: The procedural imaging. <Electronically signed by Levon Ulloa > 03/10/211999
[2021-03-10] MEDS: TAMSULOSIN 0.4 MG CAP PO SCH (21:28)
[2021-03-10] MEDS: hydrOXYzine 25 MG TAB PO SCH (21:29)
[2021-03-11 00:15] VITALS: BP 120/63
[2021-03-11] MEDS: D5W/0.45% SODIUM CHLORIDE 1,000 ML IV SCH (03:15)
[2021-03-11 04:00] VITALS: BP 120/61
[2021-03-11] MEDS ORDERED: CEPACOL LOZENGE PO PRN (06:10)
[2021-03-11] MEDS: ACETAMINOPHEN TAB 650MG DOSE (2X325MG) PO PRN (06:20)
--- NOTE | 2021-03-11 07:46 | IPN ---
PROGRESS NOTE DATE: 03/11/2021 SUBJECTIVE: The patient is postop day #1. Does not complain of pain at the moment he just received pain medication. He slept well. No complaints of shortness of breath, cough, fever, chills, dysuria, urgency, or frequency. OBJECTIVE: VITAL SIGNS: Temperature 98.6, pulse 63, respiratory rate 16, blood pressure 120/61, 96% on room air. GENERAL: The patient is awake, alert, and oriented x3. Answering questions appropriately. No pallor. No conversational dyspnea. No icterus or jaundice. No distress. HEENT: No JVD, thyromegaly, or cervical lymphadenopathy. Moist mucous membranes. LUNGS: Clear to auscultation with no wheezing, rales, or rhonchi. HEART: S1, S2. Sinus rhythm. ABDOMEN: Soft, nontender, and nondistended with positive bowel sounds. EXTREMITIES: No cyanosis, clubbing, or pitting edema. Postop day #1 with hip incision site bandaged. DIAGNOSTIC STUDIES: Microbiology and imaging studies have been reviewed. ASSESSMENT/PLAN: This is an 85-year-old postoperative day #1 status post mechanical fall and left femoral neck fracture postop hemiarthroplasty with acute issues with acute issues: 1. Left femoral neck fracture postop day #1. Postop management per surgery. On Lovenox subcutaneously daily. Activity as tolerated. Fall precautions. As needed pain medications. Acute rehabilitation unit (ARU) screen. 2. Hypertension controlled. 3. History of cerebrovascular accident (CVA) and chronic atrial fibrillation not on anticoagulation. History of chronic lymphocytic leukemia (CLL) not on anticoagulation due to subdural hematoma. 4. 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 Patient to follow-up with oncologist. 5. History of coronary artery bypass grafting (CABG) and coronary artery disease (CAD). Resumed on home medications. No acute complaints. MTDD
[2021-03-11 08:48] LABS: HEMATOCRIT 34.3 % (42.0-52.0); MEAN CORPUSCULAR HEMOGLOBIN 28.1 pg (27.0-33.0); MEAN CORPUSCULAR HGB CONC 32.1 g/dl (32.0-36.5); MEAN CORPUSCULAR VOLUME 87.5 fl (80.0-96.0); PLATELET COUNT, AUTOMATED 118 10^3/uL (150-450); RED BLOOD COUNT 3.92 10^6/uL (4.30-6.10); WHITE BLOOD COUNT 6.3 10^3/uL (4.0-10.0)
[2021-03-11 09:08] LABS: CALCIUM LEVEL 8.5 MG/DL (8.8-10.2); CREATININE FOR GFR 1.41 MG/DL (0.70-1.30); GLOMERULAR FILTRATION RATE 51.1 (>35); POTASSIUM SERUM 4.1 MEQ/L (3.5-5.1)
[2021-03-11] MEDS: OMEPRAZOLE 20 MG CAP PO SCH (09:52)
[2021-03-11] MEDS: DOCUSATE SODIUM 100MG CAPSULE PO SCH ×2 (09:52→21:24)
[2021-03-11] MEDS: levETIRAcetam 250MG TABLET (KEPPRA) PO SCH ×2 (09:52→21:24)
[2021-03-11] MEDS: LACOSAMIDE 50 MG TAB (VIMPAT) PO SCH ×2 (09:52→21:24)
[2021-03-11] MEDS: ENOXAPARIN 40MG/0.4ML SYRINGE (J1650 PER 10MG) SC SCH (09:52)
[2021-03-11] MEDS: ACETAMINOPHEN 500 MG TAB PO SCH ×2 (09:53→21:25)
[2021-03-11 09:57] VITALS: BP 95/55
[2021-03-11 14:00] VITALS: BP 97/54
[2021-03-11] MEDS: PERCOCET 5MG/325MG TAB PO PRN ×2 (14:09→18:04)
[2021-03-11] MEDS: MOM 30ML SUSPENSION UDC PO PRN (15:46)
--- NOTE | 2021-03-11 15:56 | RO ---
OPERATIVE NOTE DATE OF OPERATION: 03/10/2021 TIME: 6 p.m. PREOPERATIVE DIAGNOSIS: Left femoral neck fracture, Garden type 1. POSTOPERATIVE DIAGNOSIS: Left femoral neck fracture, Garden type 1. NAME OF OPERATION: Left Femoral Neck System insertion. SURGEON: oHng Ward MD CAR PINCHER: Aurelio Baeza MD SUPERVISING ATTENDING: Hong Ward MD FINDINGS: The patient had a Garden type 1 left femoral neck fracture. INDICATIONS: This is an 85-year-old male with a left femoral neck fracture, Garden type I. The patient sustained a ground level fall after clipping his toenail on the melany of 03/08/2021. The patient had difficulty with weightbearing after the ground level fall and reported to [facility] for further evaluation and treatment. The patient was admitted for pain control and medical comorbidities by the hospitalist service and orthopedic surgery was consulted for the aforementioned injury of the left hip. The patient was indicated for a left hip Femoral Hip System insertion, a percutaneous implantation system for femoral neck fractures. ANESTHESIA: GETA. TOURNIQUET TIME: None used. ESTIMATED BLOOD LOSS: 50 mL. IV FLUIDS: Please see anesthesia report. IV ANTIBIOTICS: Please see anesthesia report. IMPLANTS: Synthes. CULTURES: None. SPECIMENS: None. DESCRIPTION OF PROCEDURE: The patient was met in the preoperative holding area where the patient's operative extremity was signed, the patient's consent was confirmed to be correct, and the patient's identity was confirmed to be correct. The patient was then transported to the operating theater where he was placed supine on a fracture table. A safety strap secured the patient to the bed. All bony prominences were well padded. The contralateral lower extremity had an SCD placed. A timeout was called to confirm the correct patient, correct operative extremity and correct consent. All staff were in agreement. The patient was then draped in the usual sterile fashion. We began the procedure by obtaining fluoroscopic imaging of the left femoral neck nondisplaced type I/type II femoral neck fracture. We then made a small 2 inch incision overlying the greater trochanter using a scalpel. We then incised the iliotibial band and placed retractors anterior and posterior to the IT band, abutting the anterior femoral cortex at the level of the level of the lesser trochanter and the lateral aspect of the proximal femoral shaft. At this point in time, we then placed a guide in order to place a threaded guide pin into the femoral neck adjacent to the calcar on the AP view and center/center on the femoral neck and lateral view after insertion of the threaded guide pin. We then overdrilled using a triple steps reamer. This was then removed and the threaded guide pin remained in place. We then placed a bolt following the osseous corridor. After placement of the bolt with the abutting mini-plate, then using a jig in order to place a distal locking screw into the construct, this ensured that the bolt was positioned appropriately. We then used the jig to place a lag screw into position. Of note, the bolt was 100 mm as well as the anti-rotational compression screw. The distal interlocking screw was 48 mm. At this point in time, we then inserted an anti-rotational screw adaptor and applied compression to the fracture site. We obtained final fluoroscopic imaging to include AP and lateral view to ensure that we were satisfied with our fracture reduction as well as our implant placement. We then copiously irrigated the surgical site and closed the IT band using 0 Vicryl, closed the dermal layer using 2-0 Vicryl and closed the epidermis using metallic rosa. We then placed a wound bandage over the surgical incision site. At this point in time, the patient was then extubated without complication and transported to the postanesthesia care unit. The patient will be weightbearing as tolerated with use of a walker at this point in time. He will follow the Femoral Neck System insertion rehabilitative protocol which includes weightbearing as tolerated using a walker. He will be securely transferred to the hospitalist service and we recommend an equivalent of 81 mg of aspirin daily for 30 days starting on the February,. The patient will follow up with the [facility] orthopedic clinic on the February, for a postoperative wound check.
[2021-03-11] MEDS: hydrOXYzine 25 MG TAB PO SCH (21:24)
[2021-03-11] MEDS: TAMSULOSIN 0.4 MG CAP PO SCH (21:24)
[2021-03-11 22:00] VITALS: BP 139/77
[2021-03-12] MEDS: PERCOCET 5MG/325MG TAB PO PRN (03:09)
[2021-03-12 06:00] VITALS: BP 129/60
[2021-03-12] MEDS: PERCOCET 5MG/325MG TAB PO SCH ×4 (09:55→21:03)
[2021-03-12] MEDS: OMEPRAZOLE 20 MG CAP PO SCH (09:56)
[2021-03-12] MEDS: levETIRAcetam 250MG TABLET (KEPPRA) PO SCH ×2 (09:56→20:59)
[2021-03-12] MEDS: LACOSAMIDE 50 MG TAB (VIMPAT) PO SCH ×2 (09:56→20:59)
[2021-03-12] MEDS: DOCUSATE SODIUM 100MG CAPSULE PO SCH ×2 (10:00→20:59)
[2021-03-12] MEDS: ENOXAPARIN 40MG/0.4ML SYRINGE (J1650 PER 10MG) SC SCH (10:02)
[2021-03-12 10:19] LABS: HEMATOCRIT 33.2 % (42.0-52.0); HEMOGLOBIN 10.6 g/dl (13.5-17.5); MEAN CORPUSCULAR HEMOGLOBIN 28.3 pg (27.0-33.0); MEAN CORPUSCULAR HGB CONC 31.9 g/dl (32.0-36.5); MEAN CORPUSCULAR VOLUME 88.8 fl (80.0-96.0); PLATELET COUNT, AUTOMATED 123 10^3/uL (150-450); RED BLOOD COUNT 3.74 10^6/uL (4.30-6.10); WHITE BLOOD COUNT 5.6 10^3/uL (4.0-10.0)
--- NOTE | 2021-03-12 10:27 | IPN ---
PROGRESS NOTE DATE: 03/12/2021 SUBJECTIVE: "I think I overdid it yesterday. I'm in so much pain." The patient complains of severe pain at the hip all night long and this morning, rating it a 10/10. He is requesting medications to be around the clock due to waiting two hours to get his as needed medications and severe pain. The patient otherwise denies any chest pain, pressure, tightness, shortness of breath. OBJECTIVE: PHYSICAL EXAM: Vitals: Temperature 97.5, pulse 60, respiratory rate 20, blood pressure 129/69, 60% on room air. General: The patient has a well healed scar on the scalp on the right temporoparietal area, no JVD, no thyromegaly. Moist mucous membranes. Lungs: Clear to auscultation, no wheezing, rales or rhonchi. Heart: S1, S2, sinus rhythm. Abdomen: Soft, nontender, nondistended, positive bowel sounds. Extremities: Incision incised the hip, no discharge or erythema or tenderness. No cyanosis or clubbing. LABORATORY DATA: 03/11 CBC, metabolic panel have been monitor. Today's labs pending. ASSESSMENT AND PLAN: This is an 85-year-old with history of chronic kidney disease stage 3, CAD, CABG, A fib, subdural hematoma, CLL, diffuse large B-cell lymphoma on oral treatment, prostate CA, hypertension, reflux, prior cerebral aneurysm repair, EVR, admitted on March 09 with mechanical fall, sustaining a left femoral neck fracture, status post hemiarthroplasty postop day #2. CURRENT ISSUES: 1. Left hip fracture due to mechanical fall, postop day #2 status post left hemiarthroplasty on Lovenox subcu daily, activity as tolerated, doing well with physical therapy, fall precautions. Pain medications are inadequate. Therefore we will make Percocet q.i.d., no signs of sedation or CO2 retention. 2. History of CAD, CABG. Stable on home medications. 3. History of CVA, chronic A fib, not on anticoagulation due to history of subdural hematoma, currently just on Lovenox. 4. History of aneurysm repair, no acute issues. 5. Hypertension. Controlled on home medications. 6. History of CLL. Diffuse large B-cell lymphoma. Outpatient followup with oncologist. DISPOSITION: Doing well in physical therapy, 1-2 more sessions. [facility]
[2021-03-12 10:40] LABS: CALCIUM LEVEL 8.1 MG/DL (8.8-10.2); CREATININE FOR GFR 1.53 MG/DL (0.70-1.30); GLOMERULAR FILTRATION RATE 46.5 (>35); POTASSIUM SERUM 4.4 MEQ/L (3.5-5.1)
[2021-03-12] MEDS: MOM 30ML SUSPENSION UDC PO PRN (10:46)
[2021-03-12 14:00] VITALS: BP 137/77
[2021-03-12] MEDS ORDERED: SENO8.6T10 PO (14:34)
[2021-03-12] MEDS ORDERED: PERCOCET PO (14:34)
[2021-03-12] MEDS: TAMSULOSIN 0.4 MG CAP PO SCH (20:59)
[2021-03-12] MEDS: hydrOXYzine 25 MG TAB PO SCH (21:02)
[2021-03-12 22:00] VITALS: BP 126/62
[2021-03-13 06:09] VITALS: BP 121/58
[2021-03-13] MEDS ORDERED: SENOKOT S TAB PO PRN (08:55)
[2021-03-13] MEDS ORDERED: MOM 30ML SUSPENSION UDC PO ONE (09:00)
[2021-03-13] MEDS ORDERED: SENOKOT S TAB PO ONE (09:05)
[2021-03-13] MEDS: MIRALAX *UNIT DOSE* 17GM PACKET PO SCH ×2 (09:10→22:01)
[2021-03-13] MEDS: OMEPRAZOLE 20 MG CAP PO SCH (09:10)
[2021-03-13] MEDS: LACOSAMIDE 50 MG TAB (VIMPAT) PO SCH ×2 (09:11→22:01)
[2021-03-13] MEDS: PERCOCET 5MG/325MG TAB PO SCH ×4 (09:11→22:03)
[2021-03-13] MEDS: levETIRAcetam 250MG TABLET (KEPPRA) PO SCH ×2 (09:11→22:01)
[2021-03-13] MEDS: ENOXAPARIN 40MG/0.4ML SYRINGE (J1650 PER 10MG) SC SCH (09:12)
[2021-03-13] MEDS ORDERED: MOM 30ML SUSPENSION UDC PO PRN (13:00)
[2021-03-13 14:00] VITALS: BP 126/62
[2021-03-13] MEDS ORDERED: MAGNESIUM CITRATE 300 ML BTL PO ONE (15:30)
[2021-03-13 20:47] VITALS: BP 134/85
[2021-03-13] MEDS: hydrOXYzine 25 MG TAB PO SCH (22:01)
[2021-03-13] MEDS: TAMSULOSIN 0.4 MG CAP PO SCH (22:01)
[2021-03-14 05:58] VITALS: BP 123/63
[2021-03-14] MEDS: ENOXAPARIN 40MG/0.4ML SYRINGE (J1650 PER 10MG) SC SCH (10:05)
[2021-03-14] MEDS: levETIRAcetam 250MG TABLET (KEPPRA) PO SCH ×2 (10:05→21:06)
[2021-03-14] MEDS: SENOKOT S TAB PO SCH (10:05)
[2021-03-14] MEDS: LACOSAMIDE 50 MG TAB (VIMPAT) PO SCH ×2 (10:05→21:03)
[2021-03-14] MEDS: OMEPRAZOLE 20 MG CAP PO SCH (10:05)
[2021-03-14] MEDS: MIRALAX *UNIT DOSE* 17GM PACKET PO SCH ×2 (10:06→21:05)
[2021-03-14] MEDS: PERCOCET 5MG/325MG TAB PO SCH ×4 (10:06→21:04)
--- NOTE | 2021-03-14 10:38 | IPN ---
PROGRESS NOTE DATE: 03/13/2021 SUBJECTIVE: Patient's pain is much improved today. Currently he has no pain trying to have a bowel movement at the bedside commode. He had requested scheduled Percocet yesterday now with pain of 0/10 when he is not moving and tolerating pain when he is ambulating. Patient has had no sleep and has lethargy, confusion with the Percocet 1 tablet q6h. He currently denies any fever, chills, shortness of breath, chest pain, pressure or tightness, lightheadedness, no cough, no dysuria, urgency, frequency. He complains of constipation not improved with current Colace 100 twice a day. OBJECTIVE: Vital signs: Temperature 98, pulse 77, respiratory rate 18, blood pressure 120/62, 93% on room air. General: Awake, alert, oriented to person, place and time, answering questions appropriately. HEENT: He has a well healed scar on the right temporal parietal area from previous brain aneurysm repair. He has moist mucous membranes. Neck: No JVD, thyromegaly or cervical lymphadenopathy. Lungs: No stridor. Patient has no conversational dyspnea. Lungs are clear to auscultation, no wheezes, rhonchi or rales. Heart: S1 and S2 sinus rhythm. Abdomen: Soft, nontender, nondistended, positive bowel sounds. No CVA tenderness. Extremities: No cyanosis or clubbing. Skin: Warm, dry and well perfused. Incision site on post-op left hip clean and dry, no erythema or discharge noted. LABORATORY DATA: 03/12/2021 white count 5.6, hemoglobin 10, hematocrit 33, platelet count 123 previous platelet count of 118. Sodium 140, potassium 4.4, chloride 106, bicarb 26, BUN 36, creatinine 1.53, glucose 111. ASSESSMENT: This is an 85-year-old male with history of CKD stage 3, CAD, CABG, afib, subdural hematoma, CLL, diffuse large B cell lymphoma on oral treatment, prostate cancer, hypertension, reflux, prior cerebellar aneurysm repair, AVR with bioprosthetic valve not on anticoagulation admitted on March 09, 2021 after a mechanical fall and sustained a left hip fracture. Patient was medially optimized, admitted for 2 midnight's for hemiarthroplasty. ACTIVE ISSUES/PLAN: 1. Left femoral neck fracture secondary to mechanical fall: Status post left hemiarthroplasty, post-op day number 3 doing well on Percocet 1 tablet q6h, Lovenox injection subcutaneously daily for DVT prophylaxis, fall precautions, activity as tolerated. Patient is being screened by acute rehab unit; appropriate for rehab services as the patient lives alone, highly motivated and ambulating has improved once the pain has been controlled. Post-op management per orthopedic surgeon Dr. Ward. 2. Constipation: Colace has been discontinued. He will be placed on senokot 2 tablets twice a day, Milk of Magnesia every 4 hours as needed, MiraLax daily and Dulcolax can be added if none of those work. 3. History of CAD and CABG: Resume on all his home medications. 4. History of atrial fibrillation: Not on anticoagulation due to history of subdural hematoma currently just on Lovenox for DVT prophylaxis for the left hip. 5. History of brain aneurysm repair: No acute issues. Outpatient follow up with his neurosurgeon as needed. 6. Hypertension: Controlled on current medications. 7. History of CLL and diffuse large B cell lymphoma: Outpatient follow up with his oncologist. 8. Disposition: Awaiting ARU to accept the patient, we have submitted insurance information, hopefully today or tomorrow. NANCY
[2021-03-14 14:00] VITALS: BP 108/58
--- NOTE | 2021-03-14 20:01 | IPNPDOC ---
Subjective Date Seen The patient was seen on 03/14/21. Subjective Chief Complaint/HPI Mr. Ledezma is an 85 year old male with CAD s/p CABG, atrial fibrillation, prostate cancer, diffuse large B cell lymphoma, and history of subdural hematoma who presents for left femoral neck fracture 2/2 mechanical fall. This morning, denies chest pain or dyspnea. Pending INU insurance approval. Objective Physical Examination General Exam: Positive: Alert, Cooperative Eye Exam: Negative: Sclera icteric Neck Exam: Positive: Supple Chest Exam: Positive: Clear to auscultation; Negative: Wheezing Heart Exam: Positive: Rate Normal, Regular Rhythm Abdomen Exam: Positive: Normal bowel sounds, Soft; Negative: Tenderness Neuro Exam: Positive: Normal Speech Psych Exam: Positive: Mental status NL, Mood NL Assessment /Plan Assessment Mr. Ledezma is an 85 year old male with CAD s/p CABG, atrial fibrillation, prostate cancer, diffuse large B cell lymphoma, and history of subdural hematoma who presents for left femoral neck fracture 2/[address] Ward took the patient to the OR on 03/10/2021 for left femoral neck system insertion. Patient is currently pending ARU insurance approval. Plan/VTE VTE Prophylaxis Ordered?: Yes Plan 1. Left femoral neck fracture -Dr. Ward took the patient to the OR on 03/10/2021 for left femoral neck system insertion -Currently pending INU insurance approval 2. Constipation -Continue Miralax -Changed Senokot S from PRN to scheduled 3. CAD s/p CABG -No active chest pain -Continue lisinopril 4. Atrial fibrillation -Not on anticoagulation due to history of subdural hematoma 5. Hypertension -Continue lisinopril 6. History of CLL and diffuse large B cell lymphoma -Follow up with oncology/hematology outpatient 7. DVT ppx -Lovenox Disposition: Pending insurance approval for ARU VS, I&O, 24H, Fishbone Vital Signs/I&O Vital Signs Date Time Temp Pulse Resp B/P (MAP) Pulse Ox O2 Delivery O2 Flow Rate FiO2 03/14/21 17:55 16 03/14/21 14:00 96.7 78 108/58 (75) 92 Room Air 03/10/21 19:25 12.0 I&O- Last 24 Hours up to 6 AM 03/14/21 06:00 Intake Total 1770 ml Output Total 900 ml Balance 870 ml BILL VERONICA DO Mar 14, 2021 20:01
[2021-03-14] MEDS: hydrOXYzine 25 MG TAB PO SCH (21:03)
[2021-03-14] MEDS: TAMSULOSIN 0.4 MG CAP PO SCH (21:03)
[2021-03-14 22:00] VITALS: BP 101/63
[2021-03-15 06:00] VITALS: BP 89/53
[2021-03-15 06:57] LABS: HEMATOCRIT 32.2 % (42.0-52.0); HEMOGLOBIN 10.2 g/dl (13.5-17.5); MEAN CORPUSCULAR HEMOGLOBIN 27.8 pg (27.0-33.0); MEAN CORPUSCULAR HGB CONC 31.7 g/dl (32.0-36.5); MEAN CORPUSCULAR VOLUME 87.7 fl (80.0-96.0); PLATELET COUNT, AUTOMATED 136 10^3/uL (150-450); RED BLOOD COUNT 3.67 10^6/uL (4.30-6.10); WHITE BLOOD COUNT 5.3 10^3/uL (4.0-10.0)
[2021-03-15 07:16] LABS: CALCIUM LEVEL 8.5 MG/DL (8.8-10.2); CREATININE FOR GFR 1.55 MG/DL (0.70-1.30); GLOMERULAR FILTRATION RATE 45.8 (>35); POTASSIUM SERUM 4.7 MEQ/L (3.5-5.1)
[2021-03-15] MEDS ORDERED: SODIUM CHLORIDE 0.9% 1000ML IV ONE (07:20)
[2021-03-15] MEDS: SENOKOT S TAB PO SCH (08:01)
[2021-03-15] MEDS: levETIRAcetam 250MG TABLET (KEPPRA) PO SCH ×2 (08:01→20:55)
[2021-03-15] MEDS: OMEPRAZOLE 20 MG CAP PO SCH (08:02)
[2021-03-15] MEDS: MIRALAX *UNIT DOSE* 17GM PACKET PO SCH ×2 (08:02→20:54)
[2021-03-15] MEDS: LACOSAMIDE 50 MG TAB (VIMPAT) PO SCH ×2 (08:02→20:55)
[2021-03-15] MEDS: ENOXAPARIN 40MG/0.4ML SYRINGE (J1650 PER 10MG) SC SCH (08:03)
[2021-03-15] MEDS: PERCOCET 5MG/325MG TAB PO SCH ×4 (08:03→20:55)
[2021-03-15] MEDS ORDERED: ASPI-424 PO (09:34)
[2021-03-15 13:00] VITALS: BP 102/61
[2021-03-15 15:00] VITALS: BP 102/61
--- NOTE | 2021-03-15 16:29 | IPNPDOC ---
Subjective Date Seen The patient was seen on 03/15/21. Subjective Chief Complaint/HPI Mr. Ledezma is an 85 year old male with CAD s/p CABG, atrial fibrillation, prostate cancer, diffuse large B cell lymphoma, and history of subdural hematoma who presents for left femoral neck fracture 2/2 mechanical fall. This morning, patient denies chest pain or dyspnea. Insurance did not approve patient for ARU. Patient was able to be cleared by PT for home PT. Anticipate discharge tomorrow. Objective Physical Examination General Exam: Positive: Alert, Cooperative Eye Exam: Negative: Sclera icteric Neck Exam: Positive: Supple Chest Exam: Positive: Clear to auscultation; Negative: Wheezing Heart Exam: Positive: Rate Normal, Regular Rhythm Abdomen Exam: Positive: Normal bowel sounds, Soft; Negative: Tenderness Neuro Exam: Positive: Normal Speech Psych Exam: Positive: Mental status NL, Mood NL Assessment /Plan Assessment Mr. Ledezma is an 85 year old male with CAD s/p CABG, atrial fibrillation, prostate cancer, diffuse large B cell lymphoma, and history of subdural hematoma who presents for left femoral neck fracture 2/[address] Ward took the patient to the OR on 03/10/2021 for left femoral neck system insertion. Insurance did not approve patient for ARU. Patient was able to be cleared by PT for home PT. Anticipate discharge tomorrow. Plan/VTE VTE Prophylaxis Ordered?: Yes Plan 1. Left femoral neck fracture -Dr. Ward took the patient to the OR on 03/10/2021 for left femoral neck system insertion -Cleared PT for home PT 2. Constipation -Continue Miralax -Changed Senokot S from PRN to scheduled 3. CAD s/p CABG -No active chest pain -Continue lisinopril 4. Atrial fibrillation -Not on anticoagulation due to history of subdural hematoma 5. Hypertension -Continue lisinopril 6. History of CLL and diffuse large B cell lymphoma -Follow up with oncology/hematology outpatient 7. DVT ppx -Lovenox Disposition: Anticipate discharge home tomorrow VS, I&O, 24H, Fishbone Vital Signs/I&O Vital Signs Date Time Temp Pulse Resp B/P (MAP) Pulse Ox O2 Delivery O2 Flow Rate FiO2 03/15/21 15:00 97.5 83 16 102/61 (75) 96 Room Air 03/10/21 19:25 12.0 I&O- Last 24 Hours up to 6 AM 03/15/21 06:00 Intake Total 2620 ml Output Total 450 ml Balance 2170 ml Laboratory Data 24H LABS Laboratory Tests 2 03/15/21 06:38: Nucleated Red Blood Cells % (auto) 0.0, Anion Gap 5L, Glomerular Filtration Rate 45.8, Calcium Level 8.5L CBC/BMP Laboratory Tests 03/15/21 06:38 BILL VERONICA DO Mar 15, 2021 16:29
[2021-03-15 20:48] VITALS: BP 102/62
[2021-03-15] MEDS: hydrOXYzine 25 MG TAB PO SCH (20:55)
[2021-03-15] MEDS: TAMSULOSIN 0.4 MG CAP PO SCH (20:55)
[2021-03-16 06:34] VITALS: BP 104/58
[2021-03-16 07:05] LABS: HEMATOCRIT 35.4 % (42.0-52.0); HEMOGLOBIN 11.4 g/dl (13.5-17.5); MEAN CORPUSCULAR HEMOGLOBIN 28.2 pg (27.0-33.0); MEAN CORPUSCULAR HGB CONC 32.2 g/dl (32.0-36.5); MEAN CORPUSCULAR VOLUME 87.6 fl (80.0-96.0); PLATELET COUNT, AUTOMATED 162 10^3/uL (150-450); RED BLOOD COUNT 4.04 10^6/uL (4.30-6.10); WHITE BLOOD COUNT 5.3 10^3/uL (4.0-10.0)
[2021-03-16 07:40] LABS: CALCIUM LEVEL 8.5 MG/DL (8.8-10.2); CREATININE FOR GFR 1.39 MG/DL (0.70-1.30); PERCENT SATURATION 12.4 % (19.7-50.0); POTASSIUM SERUM 4.8 MEQ/L (3.5-5.1)
[2021-03-16 09:00] VITALS: BP 104/58
[2021-03-16] MEDS: MIRALAX *UNIT DOSE* 17GM PACKET PO SCH (09:00)
[2021-03-16] MEDS: SENOKOT S TAB PO SCH (09:00)
[2021-03-16] MEDS: OMEPRAZOLE 20 MG CAP PO SCH (09:14)
[2021-03-16] MEDS: levETIRAcetam 250MG TABLET (KEPPRA) PO SCH (09:14)
[2021-03-16] MEDS: LACOSAMIDE 50 MG TAB (VIMPAT) PO SCH (09:17)
[2021-03-16] MEDS: PERCOCET 5MG/325MG TAB PO SCH (09:17)
[2021-03-16] MEDS: ENOXAPARIN 40MG/0.4ML SYRINGE (J1650 PER 10MG) SC SCH (09:22)
--- NOTE | 2021-03-16 20:36 | DS.PDOC ---
Discharge Summary General Date of Admission Mar 09, 2021 at 01:41 Date of Discharge Mar 16, 2021 Specialist/Consultants Involve Orthopedic surgery, Dr. Ward Discharge Summary PROCEDURES PERFORMED DURING STAY: Left formoral neck system insertion of 03/10/[address] Ward ADMITTING DIAGNOSES: 1. Left femoral neck fracture 2. History of CLL and B-cell lymphoma 3. CAD status post CABG 4. History of subdural hematoma 5. GERD 6. Hypertension 7. Anxiety 8. Atrial fibrillation DISCHARGE DIAGNOSES: 1. Left femoral neck fracture 2. History of CLL and B-cell lymphoma 3. CAD status post CABG 4. History of subdural hematoma 5. GERD 6. Hypertension 7. Anxiety 8. Atrial fibrillation COMPLICATIONS/CHIEF COMPLAINT: Closed Left Hip Fracture. HISTORY OF PRESENT ILLNESS: Copied from admitting provider's H&P " This is an 85 y/o male with a pmh of CAD s/p CABG, a-fib, subdural hematoma, CLL, diffuse large B cell lymphoma currently undergoing oral treatment, prostate ca, htn, gerd who presents to the ED after slipping off the side of his bed earlier. Patient states that he was changing the dressing on the wound he has been being treated for on his right great toe while sitting on the side of his bed. Patient states he believes he must have got too close to the side of the bed because he slipped off and landed on his rear. Patient states that he was unable to stand for a time after the fall and crawled into a nearby chair. Pt states that after some time, he was able to get up and walk, albeit slowly and painfully. As of my exam of patient, he states that he has bearable pain to the left hip but he is blaming most of it on the uncomfortable ED stretcher. Patient denies paresthesias, numbness, radiating pain, back pain, syncope, dizziness. Patient found to have left sided nondisplaced femoral neck fracture on imaging in the ED. " HOSPITAL COURSE: Patient was taken to the OR on 03/10/2021 for left formoral neck system insertion by Dr. Ward. Afterwards, patient did well. Patient was screened for ARU and awaited for insurance approval. Yesterday, patient's insu fanta declined ARU, the patient was able to clear physical therapy for home physical therapy with platform walker. This morning patient felt well, and he denied any chest pain or dyspnea. He felt ready for home and was subsequently discharged home. DISCHARGE MEDICATIONS: Please see below. ALLERGIES: Please see below. PHYSICAL EXAMINATION ON DISCHARGE: VITAL SIGNS: Please see below. GENERAL: Comfortable, in no apparent distress. HEENT: EOMI, sclera clear. NECK: Supple. RESPIRATORY: Lungs clear to auscultation bilaterally, no rales, wheeze or rhonchi. CARDIOVASCULAR: Regular rate and rhythm. ABDOMEN: Soft, nontender, no guarding or rebound tenderness. Normal bowel sounds. NEUROLOGICAL: CN 312 grossly intact. PSYCHOLOGICAL: Normal mood and affect LABORATORY DATA: Please see below. IMAGING: Radiologist's interpretation X-ray hip and pelvis No acute findings. CT hip, left IMPRESSION: Acute nondisplaced slightly impacted transverse subcapital right femur neck fracture with valgus angulation ADDENDUM REPORT 1 In the impression of the report I incorrectly described the femur neck fracture as right-sided. It is obviously left-sided as indicated in the body of the report and I apologize for this right-left air in the impression of the report. PROGNOSIS: Good ACTIVITY: Walk with walker. DIET: 2 g sodium diet DISCHARGE PLAN: Home with home services DISPOSITION: Home Health Service. DISCHARGE INSTRUCTIONS: 1. Follow up with your PCP within a week 2. Follow up with orthopedic surgery on 03/23/2021 3. Patient may benefit from follow-up with hematology oncology for history of CLL and B-cell lymphoma 4. Patient should be on aspirin for a total of 30 days post surgery (25 days from discharge) DISCHARGE CONDITION: Stable Total time spent on discharge planning, discharge summary, and medication reconciliation: 55 minutes Vital Signs/I&Os Vital Signs Date Time Temp Pulse Resp B/P (MAP) Pulse Ox O2 Delivery O2 Flow Rate FiO2 03/16/21 09:47 18 Room Air 03/16/21 09:00 104/58 03/16/21 06:34 96.6 97 96 03/10/21 19:25 12.0 I&O- Last 24 Hours up to 6 AM 03/16/21 06:00 Intake Total 1320 ml Output Total 1000 ml Balance 320 ml Laboratory Data Labs 24H Laboratory Tests 2 03/16/21 06:45: Reticulocyte # (auto) 52.9, Nucleated Red Blood Cells % (auto) 0.0, Percent Reticulocyte Count 1.3, Reticulocyte Hemoglobin Equivalent 30.2, Anion Gap 6L, Glomerular Filtration Rate 52.0, Calcium Level 8.5L, Iron Level 32L, Total Iron Binding Capacity 258, Transferrin % Saturation 12.4L, Ferritin 78 CBC/BMP Laboratory Tests 03/16/21 06:45 Discharge Medications Scheduled Aspirin (Adult Low Dose Aspirin EC) 81 Mg Tablet.dr, 81 MG PO DAILY Furosemide (Furosemide) 20 Mg Tablet, 20 MG PO DAILY, (Reported) Hydroxyzine HCl (Hydroxyzine HCl) 25 Mg Tablet, 25 MG PO QPM, (Reported) TAKES AROUND 1700 Ibrutinib (Imbruvica) 140 Mg Capsule, 140 MG PO DAILY for CLL Lacosamide (Vimpat) 50 Mg Tablet, 50 MG PO BID, (Reported) Levetiracetam (Keppra) 1,000 Mg Tablet, 1,000 MG PO BID, (Reported) Lisinopril (Lisinopril) 10 Mg Tablet, 10 MG PO DAILY, (Reported) Omeprazole (Omeprazole) 20 Mg Cap, 20 MG PO DAILY, (Reported) Oxycodone/Acetaminophen (Oxycodone-Acetaminophen 5-325) 1 Each Tablet, 1 TAB PO QID Tamsulosin HCl (Flomax) 0.4 Mg Capsule, 0.4 MG PO QPM, (Reported) TAKES AROUND 1700 Scheduled PRN Sennosides/Docusate Sodium (Senokot-S Tablet) 1 Each Tablet, 1 TAB PO BID PRN for costipation Allergies Coded Allergies: No Known Allergies (Unverified , 05/15/17) BILL VERONICA DO Mar 16, 2021 20:36
== END 2021-03-16 13:05 | disposition home health service (06) | DRG 481 ==
LOC: M ED 20:06 → UNDOADMOB 03-09 01:41 → M MS5PR 03-09 01:41 → INTOOBSV 03-09 01:41 → OBSVTOIN 03-09 01:41 → M MS5PR 03-09 01:41 → ENRESERV 03-09 02:03 → M ED 03-09 03:05 → UNDODISIN 03-16 13:05
PROVIDERS: ADMIT Internal Medicine; ATTEND Internal Medicine
PROC: 0QS734Z Reposition Left Upper Femur with Internal Fixation Device, Percutaneous Approach (ICD-10-PCS; principal; 2021-03-10 16:30)
DX: S72.002B Fracture of unspecified part of neck of left femur, initial encounter for open fracture type I or II (principal); C85.10 Unspecified B-cell lymphoma, unspecified site; I48.20 Chronic atrial fibrillation, unspecified; I25.10 Atherosclerotic heart disease of native coronary artery without angina pectoris; Z95.5 Presence of coronary angioplasty implant and graft; C61 Malignant neoplasm of prostate; I12.9 Hypertensive chronic kidney disease with stage 1 through stage 4 chronic kidney disease, or unspecified chronic kidney disease; K21.9 Gastro-esophageal reflux disease without esophagitis; W01.0XXA Fall on same level from slipping, tripping and stumbling without subsequent striking against object, initial encounter; Y92.009 Unspecified place in unspecified non-institutional (private) residence as the place of occurrence of the external cause; Z98.41 Cataract extraction status, right eye; Z98.42 Cataract extraction status, left eye; F41.9 Anxiety disorder, unspecified; S91.101A Unspecified open wound of right great toe without damage to nail, initial encounter; Z20.822 Contact with and (suspected) exposure to COVID-19; Z79.899 Other long term (current) drug therapy; N18.30 Chronic kidney disease, stage 3 unspecified; K59.00 Constipation, unspecified

== ENCOUNTER → 2021-03-23 | Outpatient (CLI) | payer MEDICARE ==
[~2021-03-23] MED LIST changes: +ASPI-424 PO; +CETI-24 PO; +DOXY100C PO; +HYDR-3363 PO; +KEPP10002 PO; +PERCOCET PO; +SENO8.6T10 PO; +VIMP50TA3 PO
--- NOTE | 2021-03-23 13:37 | REP ---
INDICATION: ENCOUNTER FOR OTHER SPECIFIED SURGICAL AFTERCARE. COMPARISON: 03/08/2021 TECHNIQUE: Two views left hip FINDINGS: Previously described left hip fracture has been openly reduced and internally fixed. The tips of the internal fixation screw and pin do not breach the joint space. The alignment is near anatomical. IMPRESSION: As above. <Electronically signed by Dharmesh Araujo > 03/23/21 1982
== END ==
LOC: M SOG 11:01
PROVIDERS: ATTEND Orthopaedic Surgery
DX: Z48.89 Encounter for other specified surgical aftercare (principal); Z98.890 Other specified postprocedural states

== ENCOUNTER 2021-03-29 15:50 | Emergency (ER) | payer MEDICARE ==
[~2021-03-29] VITALS: Ht 182.9 cm; Wt 97.7 kg
[2021-03-29 16:26] LABS: BASO % 0.4 % (0.0-1.0); EOS # 0.1 10^3/uL (0.0-0.5); EOS % 2.7 % (0.0-3.0); HEMATOCRIT 35.6 % (42.0-52.0); HEMOGLOBIN 11.4 g/dl (13.5-17.5); LYMPH # 0.9 10^3/uL (1.5-5.0); LYMPH % 17.1 % (24.0-44.0); MEAN CORPUSCULAR HEMOGLOBIN 28.1 pg (27.0-33.0); MEAN CORPUSCULAR VOLUME 87.9 fl (80.0-96.0); MONO # 0.4 10^3/uL (0.0-0.8); MONO % 6.9 % (2.0-8.0); NEUTROPHILS # 3.8 10^3/uL (1.5-8.5); NEUTROPHILS % 72.5 % (36.0-66.0); PLATELET COUNT, AUTOMATED 213 10^3/uL (150-450); RED BLOOD COUNT 4.05 10^6/uL (4.30-6.10); WHITE BLOOD COUNT 5.2 10^3/uL (4.0-10.0)
--- NOTE | 2021-03-29 16:36 | REP ---
INDICATION: CHEST PAIN COMPARISON: 03/09/2021 TECHNIQUE: Portable AP view of the chest FINDINGS: The mediastinum demonstrates prior sternotomy, CABG, and aortic valve repair. Cardiac silhouette is normal size. The lung taylor are clear without acute consolidation, effusion, or pneumothorax. Skeletal structures are intact. IMPRESSION: No acute cardiopulmonary process appreciated. <Electronically signed by Aristeo Briseno > 03/29/21 [id number]
[2021-03-29 16:52] LABS: ALBUMIN 3.3 GM/DL (3.2-5.2); ALT/SGPT 16 U/L (12-78); BILIRUBIN,DIRECT < 0.1 MG/DL (0.0-0.2); BILIRUBIN,TOTAL 0.4 MG/DL (0.2-1.0); BLOOD UREA NITROGEN 44 MG/DL (7-18); CALCIUM LEVEL 8.9 MG/DL (8.8-10.2); CARBON DIOXIDE LEVEL 22 MEQ/L (21-32); CHLORIDE LEVEL 107 MEQ/L (98-107); CK-MB VALUE MASS < 1.0 NG/ML (<3.6); CPK CREATINE PHOSPHOKINASE 20 U/L (39-308); CREATININE FOR GFR 1.46 MG/DL (0.70-1.30); GLOMERULAR FILTRATION RATE 49.1 (>35); GLUCOSE, FASTING 107 MG/DL (70-100); LIPASE 130 U/L (73-393); POTASSIUM SERUM 4.5 MEQ/L (3.5-5.1); SODIUM LEVEL 136 MEQ/L (136-145); TOTAL PROTEIN 5.7 GM/DL (6.4-8.2); TROPONIN I < 0.02 NG/ML (< 0.10)
[2021-03-29] MEDS ORDERED: NS 500 ML IV ONE (18:25)
[2021-03-29] MEDS ORDERED: ISOVUE-370 76% 100ML VIAL As Ordered ONE (18:53)
--- NOTE | 2021-03-29 21:31 | REPVR ---
PROCEDURE INFORMATION: Exam: CT Abdomen And Pelvis With Contrast Exam date and time: 03/29/2021 7:55 PM Age: 85 years old Clinical indication: Other: Lower abdominal pain with concern for diverticulitis TECHNIQUE: Imaging protocol: Computed tomography of the abdomen and pelvis with contrast. Radiation optimization: All CT scans at this facility use at least one of these dose optimization techniques: automated exposure control; mA and/or kV adjustment per patient size (includes targeted exams where dose is matched to clinical indication); or iterative reconstruction. Contrast material: ISOVUE 370; Contrast volume: 100 ml; Contrast route: INTRAVENOUS (IV); COMPARISON: CT ABD PELVIS W/O CONTRAST 08/13/2019 8:23 AM FINDINGS: Liver: Unremarkable. No mass. Gallbladder and bile ducts: Normal. No calcified stones. No ductal dilation. Pancreas: Normal. No ductal dilation. Spleen: Normal. No splenomegaly. Adrenal glands: Normal. No mass. Kidneys and ureters: Severe atrophy of the left kidney. Small cysts in the right kidney. No hydronephrosis. Stomach and bowel: There is colonic diverticulosis without evidence of diverticulitis. The small bowel is unremarkable. No bowel obstruction. Appendix: No evidence of appendicitis. Intraperitoneal space: No free air. No significant fluid collection. Vasculature: Unremarkable. No abdominal aortic aneurysm. Lymph nodes: Unremarkable. No enlarged lymph nodes. Urinary bladder: Unremarkable as visualized. Reproductive: Unremarkable as visualized. Bones/joints: There are advanced degenerative changes in the spine and pelvis. Prior ORIF of the left femur. Soft tissues: Unremarkable. IMPRESSION: 1. Colonic diverticulosis without evidence of diverticulitis. 2. No acute findings. COMMENTS: Consistent with the [employer]'s Incidental Findings Committee white paper (J Am Summer Radiol 2018): Any incidental renal lesion less than 1 cm or classified as too small to characterize, or any incidental cystic renal lesion characterized as simple-appearing, is likely benign. No follow-up imaging is recommended for these lesions per consensus recommendations based on imaging criteria. Electronically signed by: Dick Lopez On 03/29/2021 21:31:09 PM
[2021-03-29 22:38] VITALS: BP 149/67
--- NOTE | 2021-03-30 17:55 | ECGEPIP ---
[facility] - ED Test Date: 2021-03-29 Pat Name: MARA GUSMAN Department: Room: - Gender: Male [employer] Operator: LR : [id number] Requested By: NICOLLE Saini Order Number: [id number] Reading MD: Rayna Rivera Measurements Intervals [place] Rate: 71 P: 42 [place]: 170 QRS: -38 QRSD: 92 T: 73 QT: 386 QTc: 419 Interpretive Statements Normal sinus rhythm Left axis deviation NSTTW abnormalities decreased rate 03/09/21 Electronically Signed on 03-30-2021 17:55:09 EDT by Rayna Rivera
== END 2021-03-29 23:11 | disposition home or self-care (01) ==
LOC: EDBD 15:50 → M ED 15:50
DX: A08.4 Viral intestinal infection, unspecified (principal); I10 Essential (primary) hypertension; G40.909 Epilepsy, unspecified, not intractable, without status epilepticus; N40.0 Benign prostatic hyperplasia without lower urinary tract symptoms; Z79.899 Other long term (current) drug therapy; Z79.82 Long term (current) use of aspirin
CPT/HCPCS: 36415; 71045; 74177; 80047; 80048; 80076; 82550; 82553; 83690; 84484; 85025; 93005; 96360; 96361; 99285; Q9967

== ENCOUNTER → 2021-04-20 | Outpatient (CLI) | payer MEDICARE ==
--- NOTE | 2021-04-20 09:59 | REP ---
INDICATION: FX PART OF LEFT FEMUR NECK. COMPARISON: Comparison left hip radiographs March 23, 2021. Comparison CT study March 08, 2021.. TECHNIQUE: AP view of the pelvis. FINDINGS: Patient is status post orthopedic pin fixation for a subcapital fracture the femoral neck. Alignment is unchanged. There is diffuse osteopenia. Mild bilateral hip joint osteoarthritis and vascular calcification are also noted. IMPRESSION: Status post orthopedic pin fixation left femoral neck fracture. Diffuse osteopenia. <Electronically signed by Levon Ulloa > 04/20/21 0924
--- NOTE | 2021-04-20 10:00 | REP ---
INDICATION: FX PART OF LEFT FEMUR NECK. COMPARISON: The most recent comparison study is from March 23, 2021.. TECHNIQUE: AP and frogleg views of the left hip. FINDINGS: Pin fixation for subcapital fracture. Diffuse osteopenia. Position and alignment unchanged. Mild left hip osteoarthritis is seen. Vascular calcification is noted. IMPRESSION: Status post pinning for subcapital fracture left hip. <Electronically signed by Levon Ulloa > 04/20/21 0928
== END ==
LOC: M SOG 09:34
PROVIDERS: ATTEND Orthopaedic Surgery
DX: S72.002D Fracture of unspecified part of neck of left femur, subsequent encounter for closed fracture with routine healing (principal)

== ENCOUNTER → 2021-05-18 | Outpatient (REF) | payer MEDICARE ==
[~2021-05-18] MED LIST changes: -DOXY100C PO; +DOXY100C3 PO
== END ==
LOC: M WUC 16:04
PROVIDERS: ATTEND Urology
DX: C61 Malignant neoplasm of prostate (principal)

== ENCOUNTER → 2021-06-15 | Outpatient (CLI) | payer MEDICARE ==
--- NOTE | 2021-06-15 12:24 | REP ---
INDICATION: FEMUR FX FOLLOW-UP. COMPARISON: 04/20/2021 TECHNIQUE: Single AP pelvis FINDINGS: There is no change from the prior exam. Chronic bilateral hip degenerative changes are noted status quo. Previous left hip ORIF with pinning showing a healing fracture. It should be stated that the technologist improperly labeled the image as the right marker was placed over the left hip region. IMPRESSION: As above <Electronically signed by Dharmesh Araujo > 06/15/21 [id number]
== END ==
LOC: M SOG 09:17
PROVIDERS: ATTEND Orthopaedic Surgery
DX: S72.002D Fracture of unspecified part of neck of left femur, subsequent encounter for closed fracture with routine healing (principal)

== ENCOUNTER → 2021-09-06 | Outpatient (CLI) | payer MEDICARE | LOC: M WUC 14:15 | PROVIDERS: ATTEND Urology | DX: C61 Malignant neoplasm of prostate (principal) ==

== ENCOUNTER → 2021-09-19 | Outpatient (CLI) | payer MEDICARE ==
--- NOTE | 2021-09-19 08:49 | REP ---
INDICATION: FX UNSP OF NK OF L FEMR SUBS FOR CLOS FX W ROUTN HEAL. COMPARISON: 06/15/2021 TECHNIQUE: Two weightbearing views of the pelvis. FINDINGS: Stable prior fixation for left femoral neck fracture. Underlying chronic osteopenia and degenerative changes. No new acute fracture or dislocation. IMPRESSION: Stable examination. <Electronically signed by Aristeo Briseno > 09/19/21 [id number]
== END ==
LOC: M SOG 08:10
PROVIDERS: ATTEND Orthopaedic Surgery
DX: S72.002D Fracture of unspecified part of neck of left femur, subsequent encounter for closed fracture with routine healing (principal); X58.XXXD Exposure to other specified factors, subsequent encounter; Y92.89 Other specified places as the place of occurrence of the external cause

== ENCOUNTER 2021-12-22 07:36 | Emergency (ER) | payer MEDICARE ==
[~2021-12-22] VITALS: Ht 182.9 cm; Wt 90.9 kg
[~2021-12-22 07:36] MED LIST changes: -LISI-898 PO; +LISI5TAB11 PO
[2021-12-22 09:38] LABS: BASO % 0.2 % (0.0-1.0); EOS % 0.4 % (0.0-3.0); HEMATOCRIT 33.3 % (42.0-52.0); HEMOGLOBIN 10.7 g/dl (13.5-17.5); LYMPH # 0.4 10^3/uL (1.5-5.0); MEAN CORPUSCULAR HEMOGLOBIN 26.8 pg (27.0-33.0); MEAN CORPUSCULAR HGB CONC 32.1 g/dl (32.0-36.5); MEAN CORPUSCULAR VOLUME 83.5 fl (80.0-96.0); MONO # 0.5 10^3/uL (0.0-0.8); MONO % 8.9 % (2.0-8.0); NEUTROPHILS # 4.8 10^3/uL (1.5-8.5); NEUTROPHILS % 83.3 % (36.0-66.0); PLATELET COUNT, AUTOMATED 118 10^3/uL (150-450); RED BLOOD COUNT 3.99 10^6/uL (4.30-6.10); WHITE BLOOD COUNT 5.7 10^3/uL (4.0-10.0)
[2021-12-22 09:47] LABS: INR 1.01; PARTIAL THROMBOPLASTIN TIME 26.9 SECONDS (25.9-37.0); PROTHROMBIN TIME 13.7 SECONDS (12.7-14.5)
[2021-12-22 10:01] LABS: ALBUMIN 3.4 GM/DL (3.2-5.2); BILIRUBIN,DIRECT 0.2 MG/DL (0.0-0.2); BILIRUBIN,TOTAL 0.5 MG/DL (0.2-1.0); CALCIUM LEVEL 8.5 MG/DL (8.8-10.2); CREATININE FOR GFR 1.39 MG/DL (0.70-1.30); GLOMERULAR FILTRATION RATE 51.8 (>35); POTASSIUM SERUM 4.7 MEQ/L (3.5-5.1); TOTAL PROTEIN 5.8 GM/DL (6.4-8.2)
[2021-12-22 10:02] LABS: CK-MB VALUE MASS < 1.0 NG/ML (<3.6); CPK CREATINE PHOSPHOKINASE 46 U/L (39-308); MB/CK RELATIVE INDEX 2.17 (< OR =4)
[2021-12-22 11:16] VITALS: BP 164/72
== END 2021-12-22 11:43 | disposition home or self-care (01) ==
LOC: EDBD 07:36 → M ED 07:36
DX: S76.911A Strain of unspecified muscles, fascia and tendons at thigh level, right thigh, initial encounter (principal); X58.XXXA Exposure to other specified factors, initial encounter; Y92.018 Other place in single-family (private) house as the place of occurrence of the external cause; I10 Essential (primary) hypertension; E78.00 Pure hypercholesterolemia, unspecified; N40.0 Benign prostatic hyperplasia without lower urinary tract symptoms; Z85.46 Personal history of malignant neoplasm of prostate; Z85.72 Personal history of non-Hodgkin lymphomas; Z86.73 Personal history of transient ischemic attack (TIA), and cerebral infarction without residual deficits; Z87.09 Personal history of other diseases of the respiratory system; Z95.1 Presence of aortocoronary bypass graft; Z92.21 Personal history of antineoplastic chemotherapy; Z92.3 Personal history of irradiation; Z79.899 Other long term (current) drug therapy

== ENCOUNTER 2022-01-01 02:39 | Emergency (ER) | payer MEDICARE ==
[~2022-01-01] VITALS: Ht 175.3 cm; Wt 77.2 kg
[2022-01-01] MEDS ORDERED: KETOROLAC 30 MG/ML 1ML VIAL IV ONE (04:40)
[2022-01-01] MEDS ORDERED: NORCO 5/325MG TABLET (BULK FOR ED) PO ONE (05:10)
[2022-01-01 05:15] VITALS: BP 167/75
== END 2022-01-01 06:09 | disposition home or self-care (01) ==
LOC: M ED 02:39
DX: S20.212A Contusion of left front wall of thorax, initial encounter (principal); W01.0XXA Fall on same level from slipping, tripping and stumbling without subsequent striking against object, initial encounter; Y92.89 Other specified places as the place of occurrence of the external cause; J90 Pleural effusion, not elsewhere classified; I10 Essential (primary) hypertension; K21.9 Gastro-esophageal reflux disease without esophagitis; Z86.73 Personal history of transient ischemic attack (TIA), and cerebral infarction without residual deficits; Z79.899 Other long term (current) drug therapy
CPT/HCPCS: 71101; 73030; 80047; 84484; 93005; 96374; 99284; J1885

== ENCOUNTER → 2022-02-21 | Outpatient (CLI) | payer MEDICARE | LOC: M WUC 13:57 | PROVIDERS: ATTEND Urology | DX: C61 Malignant neoplasm of prostate (principal) ==

== ENCOUNTER → 2022-03-01 | Outpatient (CLI) | payer MEDICARE | LOC: M SOG 08:48 | PROVIDERS: ATTEND Orthopaedic Surgery | DX: S72.002D Fracture of unspecified part of neck of left femur, subsequent encounter for closed fracture with routine healing (principal) ==

== ENCOUNTER → 2022-05-14 | Outpatient (CLI) | payer MEDICARE, MEDICAID | LOC: M WUC 10:23 | PROVIDERS: ATTEND Urology | DX: C61 Malignant neoplasm of prostate (principal) ==

== ENCOUNTER 2022-07-03 03:06 | Emergency (ER) | payer MEDICAID, MEDICARE ==
[~2022-07-03] VITALS: Ht 182.9 cm; Wt 90.9 kg
[2022-07-03] MEDS ORDERED: RA M1SOL2 PO (10:30)
[2022-07-03 10:40] VITALS: BP 152/72
== END 2022-07-03 10:42 | disposition home or self-care (01) ==
LOC: M ED 03:06
DX: K59.00 Constipation, unspecified (principal); I48.91 Unspecified atrial fibrillation; I10 Essential (primary) hypertension; Z79.899 Other long term (current) drug therapy; Z85.72 Personal history of non-Hodgkin lymphomas; Z95.1 Presence of aortocoronary bypass graft

== ENCOUNTER → 2022-08-16 | Outpatient (REF) | payer MEDICARE ==
[~2022-08-16] MED LIST changes: +RA M1SOL2 PO
== END ==
LOC: M SMT 15:11
PROVIDERS: ATTEND Urology
DX: N39.0 Urinary tract infection, site not specified (principal)

== ENCOUNTER → 2022-08-28 | Outpatient (CLI) | payer MEDICARE | LOC: M WUC 13:44 | PROVIDERS: ATTEND Urology | DX: C61 Malignant neoplasm of prostate (principal) ==

== ENCOUNTER → 2022-11-26 | Outpatient (REF) | payer MEDICARE, MEDICAID | LOC: M SMT 16:40 | PROVIDERS: ATTEND Urology | DX: C61 Malignant neoplasm of prostate (principal) ==

== ENCOUNTER → 2023-07-01 | Outpatient (REF) | payer MEDICARE, MEDICAID ==
[~2023-07-01] MED LIST changes: -ROPI1TAB3 PO; +ROPI1TAB73 PO; +SENN-134 PO; -SENN1TAB89 PO
== END ==
LOC: M SFHCDERM 17:28
PROVIDERS: ATTEND Physician Assistant
DX: D04.39 Carcinoma in situ of skin of other parts of face (principal)

== ENCOUNTER → 2023-07-31 | Outpatient (CLI) | payer MEDICARE, MEDICAID | LOC: M WUC 13:44 | PROVIDERS: ATTEND Family Medicine | DX: J44.9 Chronic obstructive pulmonary disease, unspecified (principal) ==

== ENCOUNTER → 2023-12-16 | Outpatient (REF) | payer MEDICARE | LOC: M LABWUC 11:33 | PROVIDERS: ATTEND Urology | DX: C61 Malignant neoplasm of prostate (principal) ==

== ENCOUNTER → 2024-02-18 | Outpatient (CLI) | payer MEDICARE | LOC: M WHC 09:56 | PROVIDERS: ATTEND Nurse Practitioner | DX: M79.622 Pain in left upper arm (principal) ==

== ENCOUNTER → 2024-03-30 | Outpatient (REF) | payer MEDICARE ==
[~2024-03-30] MED LIST changes: -AZEL0.055; +AZEL1SPR4
== END ==
LOC: M LABWUC 16:07
PROVIDERS: ATTEND Urology
DX: C61 Malignant neoplasm of prostate (principal)

== ENCOUNTER → 2024-05-11 | Outpatient (CLI) | payer MEDICARE ==
[~2024-05-11] MED LIST changes: +MINO100C4 PO
== END ==
LOC: M WUC 14:03
PROVIDERS: ATTEND Urology
DX: C61 Malignant neoplasm of prostate (principal)

== ENCOUNTER → 2024-07-14 | Outpatient (CLI) | payer MEDICARE ==
[~2024-07-14] MED LIST changes: +LEVO25TA5 PO
== END ==
LOC: M WUC 09:17
PROVIDERS: ATTEND Urology
DX: C61 Malignant neoplasm of prostate (principal)

== ENCOUNTER → 2024-11-06 | Outpatient (CLI) | payer MEDICARE ==
[~2024-11-06] MED LIST changes: -AUGM0.05 TOP; +AUGM0.0511 TOP; -CYCL5TAB PO; +CYCL5TAB4 PO
[2024-11-06 19:01] LABS: HEMATOCRIT 42.3 % (42.0-52.0); HEMOGLOBIN 13.5 g/dl (13.5-17.5); MEAN CORPUSCULAR HEMOGLOBIN 29.9 pg (27.0-33.0); MEAN CORPUSCULAR HGB CONC 31.9 g/dl (32.0-36.5); MEAN CORPUSCULAR VOLUME 93.8 fl (80.0-96.0); PLATELET COUNT, AUTOMATED 101 10^3/uL (150-450); RED BLOOD COUNT 4.51 10^6/uL (4.30-6.10); WHITE BLOOD COUNT 4.7 10^3/uL (4.0-10.0)
[2024-11-06 19:24] LABS: HEMOGLOBIN A1c 5.6 % (4.0-6.0)
[2024-11-06 19:26] LABS: ALBUMIN 3.6 G/DL (3.2-5.2); BILIRUBIN,TOTAL 0.3 MG/DL (0.3-1.2); CALCIUM LEVEL 8.6 MG/DL (8.3-10.6); CHOLESTEROL RISK RATIO 6.99 (<5); CREATININE FOR GFR 1.78 MG/DL (0.70-1.30); GLOMERULAR FILTRATION RATE 38.7 (>35); HDL CHOLESTEROL 27.6 MG/DL (>40); LDL CHOLESTEROL 132.6 MG/DL (<100); NON-HDL-C 165.4 MG/DL; POTASSIUM SERUM 5.3 MMOL/L (3.5-5.1); TOTAL PROTEIN 5.9 G/DL (5.7-8.2)
[2024-11-06 19:27] LABS: THYROID STIMULATING HORMONE 6.696 uIU/ML (0.55-4.78)
== END ==
LOC: M WUC 14:00
PROVIDERS: ATTEND Family Medicine
DX: E03.9 Hypothyroidism, unspecified (principal); I10 Essential (primary) hypertension; R53.83 Other fatigue

== ENCOUNTER 2025-01-09 12:41 | Observation (INO) | payer MEDICARE ==
[~2025-01-09] VITALS: Ht 182.9 cm; Wt 93.8 kg
[2025-01-09 13:10] LABS: BASO % 0.4 % (0.0-1.0); EOS # 0.1 10^3/uL (0.0-0.5); EOS % 1.4 % (0.0-3.0); HEMATOCRIT 37.9 % (42.0-52.0); HEMOGLOBIN 12.5 g/dl (13.5-17.5); LYMPH # 1.2 10^3/uL (1.5-5.0); LYMPH % 24.9 % (24.0-44.0); MEAN CORPUSCULAR HEMOGLOBIN 30.4 pg (27.0-33.0); MEAN CORPUSCULAR VOLUME 92.2 fl (80.0-96.0); MONO # 0.3 10^3/uL (0.0-0.8); NEUTROPHILS # 3.2 10^3/uL (1.5-8.5); NEUTROPHILS % 66.1 % (36.0-66.0); PLATELET COUNT, AUTOMATED 103 10^3/uL (150-450); RED BLOOD COUNT 4.11 10^6/uL (4.30-6.10); WHITE BLOOD COUNT 4.9 10^3/uL (4.0-10.0)
[2025-01-09] MEDS: NS 500 ML IV ONE (13:14)
[2025-01-09 13:25] LABS: INR 1.06; PARTIAL THROMBOPLASTIN TIME 27.5 SECONDS (24.8-34.2); PROTHROMBIN TIME 14.1 SECONDS (12.5-14.5)
[2025-01-09 13:40] LABS: ALBUMIN 3.4 G/DL (3.2-5.2); ALKALINE PHOSPHATASE 66 U/L (40-129); ALT/SGPT 11 U/L (7.0-40); AST/SGOT 11 U/L (<34); BILIRUBIN,DIRECT 0.1 MG/DL (<0.4); BILIRUBIN,TOTAL 0.4 MG/DL (0.3-1.2); BLOOD UREA NITROGEN 56 MG/DL (9-23); CALCIUM LEVEL 8.6 MG/DL (8.3-10.6); CARBON DIOXIDE LEVEL 27 MMOL/L (20-31); CHLORIDE LEVEL 106 MMOL/L (98-107); CK-MB VALUE MASS < 1.0 NG/ML (<3.6); CPK CREATINE PHOSPHOKINASE 23 U/L (46-171); CREATININE FOR GFR 2.17 MG/DL (0.70-1.30); GLOMERULAR FILTRATION RATE 28.8 (>35); GLUCOSE, FASTING 103 MG/DL (74-106); MB/CK RELATIVE INDEX 4.34 (< OR =4); POTASSIUM SERUM 4.8 MMOL/L (3.5-5.1); SODIUM LEVEL 140 MMOL/L (136-145); TOTAL PROTEIN 5.6 G/DL (5.7-8.2)
[2025-01-09 13:43] LABS: FREE T4 1.21 NG/DL (0.89-1.76); THYROID STIMULATING HORMONE 4.083 uIU/ML (0.55-4.78)
[2025-01-09] MEDS: NS (Normal Saline) 0.9% 1,000 ML IV SCH (15:15)
[2025-01-09] MEDS ORDERED: FURO40TA2 PO (15:46)
[2025-01-09] MEDS ORDERED: SYNT75TA PO (15:46)
[2025-01-09] MEDS ORDERED: MONT10TA97 PO (15:46)
[2025-01-09] MEDS ORDERED: XARE2.5T PO (15:46)
[2025-01-09] MEDS ORDERED: POTA1TAB21 PO (15:46)
[2025-01-09] MEDS ORDERED: NYST100085 TOP (15:46)
[2025-01-09] MEDS ORDERED: HOME MED LIST COMPLETE! XX SCH (15:50)
[2025-01-09 16:00] VITALS: BP 145/60; TEMP 96.8; O2SAT 98
[2025-01-09 19:55] VITALS: BP 112/64; TEMP 97.2; O2SAT 96
[2025-01-09] MEDS: RIVAROXABAN 2.5MG TABLET (XARELTO) PO SCH (20:30)
[2025-01-09] MEDS: levETIRAcetam 250MG TABLET (KEPPRA) PO SCH (20:30)
[2025-01-09 20:35] VITALS: BP_SYST 115; BP_SYST 147; BP_SYST 149; BP_DIAS 64; BP_DIAS 71; BP_DIAS 90
[2025-01-10 03:05] VITALS: BP 127/58; TEMP 97; O2SAT 97
[2025-01-10] MEDS: LEVOTHYROXINE 75MCG TABLET (0.075MG) PO SCH (05:47)
[2025-01-10 05:49] VITALS: BP_SYST 124; BP_SYST 128; BP_SYST 132; BP_DIAS 58; BP_DIAS 60
[2025-01-10 06:07] LABS: HEMATOCRIT 35.2 % (42.0-52.0); HEMOGLOBIN 11.5 g/dl (13.5-17.5); MEAN CORPUSCULAR HEMOGLOBIN 30.3 pg (27.0-33.0); MEAN CORPUSCULAR HGB CONC 32.7 g/dl (32.0-36.5); MEAN CORPUSCULAR VOLUME 92.6 fl (80.0-96.0); WHITE BLOOD COUNT 4.8 10^3/uL (4.0-10.0)
[2025-01-10 06:10] LABS: PLATELET COUNT, AUTOMATED 96 10^3/uL (150-450)
[2025-01-10 06:34] LABS: CALCIUM LEVEL 7.6 MG/DL (8.3-10.6); CREATININE FOR GFR 1.82 MG/DL (0.70-1.30); GLOMERULAR FILTRATION RATE 35.5 (>35); MAGNESIUM LEVEL 2.1 MG/DL (1.8-2.4); POTASSIUM SERUM 5.2 MMOL/L (3.5-5.1)
[2025-01-10 06:42] LABS: ATYPICAL LYMPH 2 % (0-5); BASOPHILS 1 % (0-1); EOSINOPHILS 4 % (0-3); LYMPHOCYTES 40 % (16-44); MONOCYTES 6 % (0-5); NEUTROPHILS 47 % (28-66); OVALOCYTES 1+; PLATELET ESTIMATE DECREASED (NORMAL)
[2025-01-10] MEDS: PATIROMER SORBITEX CALCIUM 8.4 GM POWDER PACKET (VELTASSA) PO ONE (08:15)
[2025-01-10] MEDS: MONTELUKAST 10 MG TAB PO SCH (10:45)
[2025-01-10] MEDS: LACOSAMIDE 50 MG TAB (VIMPAT) PO SCH (10:45)
[2025-01-10] MEDS: OMEPRAZOLE 20MG CAP PO SCH (10:45)
[2025-01-10] MEDS: MINOCYCLINE 50 MG CAP PO SCH (10:45)
== END 2025-01-10 11:08 | disposition home or self-care (01) ==
LOC: EDBD 12:41 → M ED 12:41 → M ED INP 12:42 → M MSPAV 15:50
PROVIDERS: ADMIT Internal Medicine; ATTEND Internal Medicine
DX: N17.9 Acute kidney failure, unspecified (principal); N18.9 Chronic kidney disease, unspecified; I95.1 Orthostatic hypotension; E87.5 Hyperkalemia; R42 Dizziness and giddiness; C61 Malignant neoplasm of prostate; Z95.2 Presence of prosthetic heart valve; E03.9 Hypothyroidism, unspecified; I12.9 Hypertensive chronic kidney disease with stage 1 through stage 4 chronic kidney disease, or unspecified chronic kidney disease; I48.91 Unspecified atrial fibrillation; I25.10 Atherosclerotic heart disease of native coronary artery without angina pectoris; C91.10 Chronic lymphocytic leukemia of B-cell type not having achieved remission; C83.30 Diffuse large B-cell lymphoma, unspecified site; Z95.1 Presence of aortocoronary bypass graft; Z79.899 Other long term (current) drug therapy; Z79.890 Hormone replacement therapy; Z79.01 Long term (current) use of anticoagulants
CPT/HCPCS: 36415; 71045; 80048; 80053; 80076; 82550; 82553; 83735; 84439; 84443; 84484; 85025; 85049; 85055; 85610; 85730; 93005; 93041; 94760; 97161; 99285; G0378

== ENCOUNTER 2025-01-10 16:20 | Emergency (ER) | payer MEDICARE ==
[~2025-01-10] VITALS: Ht 193 cm; Wt 95.5 kg
[~2025-01-10 16:20] MED LIST changes: +FURO40TA2 PO; +MONT10TA97 PO; +NYST100085 TOP; +POTA1TAB21 PO; +SYNT75TA PO; +XARE2.5T PO
[2025-01-10 16:33] VITALS: TEMP 96.5
[2025-01-10 17:09] LABS: BASO % 0.2 % (0.0-1.0); EOS # 0.1 10^3/uL (0.0-0.5); EOS % 2.3 % (0.0-3.0); HEMATOCRIT 39.5 % (42.0-52.0); HEMOGLOBIN 12.8 g/dl (13.5-17.5); LYMPH # 1.5 10^3/uL (1.5-5.0); MEAN CORPUSCULAR HEMOGLOBIN 29.9 pg (27.0-33.0); MEAN CORPUSCULAR HGB CONC 32.4 g/dl (32.0-36.5); MEAN CORPUSCULAR VOLUME 92.3 fl (80.0-96.0); MONO # 0.3 10^3/uL (0.0-0.8); MONO % 7.3 % (2.0-8.0); NEUTROPHILS # 2.4 10^3/uL (1.5-8.5); NEUTROPHILS % 54.7 % (36.0-66.0); RED BLOOD COUNT 4.28 10^6/uL (4.30-6.10); WHITE BLOOD COUNT 4.4 10^3/uL (4.0-10.0)
[2025-01-10 17:10] LABS: PLATELET COUNT, AUTOMATED 93 10^3/uL (150-450)
[2025-01-10 17:30] LABS: ALBUMIN 3.5 G/DL (3.2-5.2); BILIRUBIN,TOTAL 0.5 MG/DL (0.3-1.2); CALCIUM LEVEL 8.5 MG/DL (8.3-10.6); CREATININE FOR GFR 1.62 MG/DL (0.70-1.30); GLOMERULAR FILTRATION RATE 40.8 (>35); TOTAL PROTEIN 5.8 G/DL (5.7-8.2)
[2025-01-10 18:15] VITALS: BP 156/71; O2SAT 98
== END 2025-01-10 18:26 | disposition home or self-care (01) ==
LOC: M ED 16:20 → EDBD 16:20 → M ED 18:26
DX: R42 Dizziness and giddiness (principal); I25.10 Atherosclerotic heart disease of native coronary artery without angina pectoris; N17.9 Acute kidney failure, unspecified; I95.1 Orthostatic hypotension; C91.10 Chronic lymphocytic leukemia of B-cell type not having achieved remission; C83.30 Diffuse large B-cell lymphoma, unspecified site; Z95.1 Presence of aortocoronary bypass graft; Z79.899 Other long term (current) drug therapy

== ENCOUNTER 2025-01-13 06:13 | Emergency (ER) | payer MEDICARE ==
[~2025-01-13] VITALS: Ht 182.9 cm; Wt 96.9 kg
[~2025-01-13 06:13] MED LIST changes: -HOLTER MONITOR XX
[2025-01-13 06:49] LABS: HEMATOCRIT 41.8 % (42.0-52.0); HEMOGLOBIN 13.6 g/dl (13.5-17.5); MEAN CORPUSCULAR HGB CONC 32.5 g/dl (32.0-36.5); MEAN CORPUSCULAR VOLUME 92.1 fl (80.0-96.0); PLATELET COUNT, AUTOMATED 101 10^3/uL (150-450); RED BLOOD COUNT 4.54 10^6/uL (4.30-6.10); WHITE BLOOD COUNT 5.2 10^3/uL (4.0-10.0)
[2025-01-13 06:58] LABS: INR 0.94; PROTHROMBIN TIME 12.9 SECONDS (12.5-14.5)
[2025-01-13 07:15] LABS: CK-MB VALUE MASS 1.4 NG/ML (<3.6)
[2025-01-13 07:17] LABS: MB/CK RELATIVE INDEX 4.37 (< OR =4)
[2025-01-13 07:22] LABS: ALBUMIN 3.7 G/DL (3.2-5.2); BILIRUBIN,DIRECT 0.1 MG/DL (<0.4); BILIRUBIN,TOTAL 0.4 MG/DL (0.3-1.2); CALCIUM LEVEL 9.3 MG/DL (8.3-10.6); CREATININE FOR GFR 1.68 MG/DL (0.70-1.30); GLOMERULAR FILTRATION RATE 39.1 (>35); POTASSIUM SERUM 4.4 MMOL/L (3.5-5.1); TOTAL PROTEIN 6.3 G/DL (5.7-8.2)
[2025-01-13] MEDS: NS 500 ML IV ONE (08:55)
[2025-01-13 09:38] LABS: CK-MB VALUE MASS < 1.0 NG/ML (<3.6)
[2025-01-13 09:43] LABS: CPK CREATINE PHOSPHOKINASE 25 U/L (46-171)
[2025-01-13] MEDS ORDERED: HOLTER MONITOR XX (11:08)
[2025-01-13 11:35] VITALS: TEMP 96.1
[2025-01-13 11:41] VITALS: BP 138/59; O2SAT 98
[2025-01-13 11:57] LABS: APPEARANCE, URINE CLEAR (CLEAR); BACTERIA, URINE AUTO NEGATIVE (NEGATIVE); BILIRUBIN, URINE AUTO NEGATIVE (NEGATIVE); BLOOD, URINE BLOOD NEGATIVE (NEGATIVE); COLOR, URINE YELLOW (YELLOW); GLUCOSE, URINE (UA) AUTO NEGATIVE (NEGATIVE); KETONE, URINE AUTO NEGATIVE (NEGATIVE); LEUKOCYTE ESTERASE, URINE AUTO NEGATIVE (NEGATIVE); MUCUS, URINE SMALL (NEGATIVE); NITRITE, URINE AUTO NEGATIVE (NEGATIVE); PROTEIN, URINE AUTO NEGATIVE (NEGATIVE); RBC, URINE AUTO 0 /HPF (0-3); SPECIFIC GRAVITY URINE AUTO 1.009 (1.002-1.035); SQUAMOUS EPITHELIAL CELL UR AU 0 /HPF (0-6); UROBILINOGEN, URINE AUTO 0.2 mg/dL (0.0-2.0); WBC, URINE AUTO 0 /HPF (0-3)
[2025-01-13 14:55] LABS: THYROID STIMULATING HORMONE 7.759 uIU/ML (0.55-4.78)
== END 2025-01-13 11:46 | disposition home or self-care (01) ==
LOC: M ED 06:13
DX: R00.1 Bradycardia, unspecified (principal); I25.10 Atherosclerotic heart disease of native coronary artery without angina pectoris; I10 Essential (primary) hypertension; K21.9 Gastro-esophageal reflux disease without esophagitis; Z85.46 Personal history of malignant neoplasm of prostate; Z79.899 Other long term (current) drug therapy

== ENCOUNTER → 2025-01-13 | Outpatient (CLI) | payer MEDICARE ==
[~2025-01-13] MED LIST changes: +HOLTER MONITOR XX
== END ==
LOC: M EKG 12:15
PROVIDERS: ATTEND Physician Assistant Medical
DX: R00.2 Palpitations (principal)

== ENCOUNTER 2025-02-02 15:07 | Observation (INO) | payer MEDICARE ==
[~2025-02-02] VITALS: Ht 182.9 cm; Wt 97.3 kg
[~2025-02-02 15:07] MED LIST changes: -FLOM0.4C39 PO; +HOLTER MONITOR XX; +TAMS-18 PO
[2025-02-02 15:47] LABS: BASO % 0.4 % (0.0-1.0); EOS # 0.1 10^3/uL (0.0-0.5); EOS % 1.2 % (0.0-3.0); HEMATOCRIT 37.7 % (42.0-52.0); HEMOGLOBIN 12.1 g/dl (13.5-17.5); LYMPH # 1.8 10^3/uL (1.5-5.0); MEAN CORPUSCULAR HEMOGLOBIN 30.1 pg (27.0-33.0); MEAN CORPUSCULAR HGB CONC 32.1 g/dl (32.0-36.5); MEAN CORPUSCULAR VOLUME 93.8 fl (80.0-96.0); MONO # 0.4 10^3/uL (0.0-0.8); MONO % 7.6 % (2.0-8.0); NEUTROPHILS # 2.9 10^3/uL (1.5-8.5); NEUTROPHILS % 55.6 % (36.0-66.0); RED BLOOD COUNT 4.02 10^6/uL (4.30-6.10); WHITE BLOOD COUNT 5.1 10^3/uL (4.0-10.0)
[2025-02-02] MEDS: NS (Normal Saline) 0.9% 1,000 ML IV ONE (16:10)
[2025-02-02 16:18] LABS: PLATELET COUNT, AUTOMATED 78 10^3/uL (150-450)
[2025-02-02 16:23] LABS: ALBUMIN 3.5 G/DL (3.2-5.2); ALKALINE PHOSPHATASE 69 U/L (40-129); ALT/SGPT 11 U/L (7.0-40); AST/SGOT 14 U/L (<34); BILIRUBIN,DIRECT < 0.1 MG/DL (<0.4); BILIRUBIN,TOTAL 0.3 MG/DL (0.3-1.2); BLOOD UREA NITROGEN 40 MG/DL (9-23); CALCIUM LEVEL 8.1 MG/DL (8.3-10.6); CARBON DIOXIDE LEVEL 25 MMOL/L (20-31); CHLORIDE LEVEL 109 MMOL/L (98-107); CK-MB VALUE MASS < 1.0 NG/ML (<3.6); CPK CREATINE PHOSPHOKINASE 17 U/L (46-171); CREATININE FOR GFR 2.08 MG/DL (0.70-1.30); FREE T4 1.34 NG/DL (0.89-1.76); GLOMERULAR FILTRATION RATE 30.3 (>35); GLUCOSE, FASTING 97 MG/DL (74-106); MB/CK RELATIVE INDEX 5.88 (< OR =4); POTASSIUM SERUM 5.3 MMOL/L (3.5-5.1); SODIUM LEVEL 141 MMOL/L (136-145); THYROID STIMULATING HORMONE 2.706 uIU/ML (0.55-4.78); TOTAL PROTEIN 5.5 G/DL (5.7-8.2)
[2025-02-02 16:34] LABS: INR 1.05; PARTIAL THROMBOPLASTIN TIME 27.2 SECONDS (24.8-34.2)
[2025-02-02] MEDS: CALCIUM GLUCONATE 1,000 MG in DEXTROSE 5% (D5W) MINI-BAG PLU 100 ML IV ONE (17:18)
[2025-02-02] MEDS: DEXTROSE 50% 50 ML SYRINGE IV STA (17:18)
[2025-02-02] MEDS: HumuLIN R (REGULAR) INSULIN (NovoLIN R) **100 U/ML** PER UNIT IV ONE (17:18)
[2025-02-02] MEDS ORDERED: HEPARIN SOD 5000 UNITS/ML 1 ML VIAL/SYRINGE SC SCH (17:40)
[2025-02-02] MEDS ORDERED: HOME MED LIST COMPLETE! XX SCH (19:15)
[2025-02-02] MEDS ORDERED: POTA1TAB21 PO (19:35)
[2025-02-02 20:31] LABS: CALCIUM LEVEL 8.2 MG/DL (8.3-10.6); CREATININE FOR GFR 2.01 MG/DL (0.70-1.30); GLOMERULAR FILTRATION RATE 31.5 (>35); POTASSIUM SERUM 5.4 MMOL/L (3.5-5.1)
[2025-02-02] MEDS: RIVAROXABAN 2.5 MG PO SCH (21:18)
[2025-02-02 23:34] VITALS: BP 169/66; TEMP 97.9; O2SAT 95
[2025-02-03] MEDS: TAMSULOSIN 0.4 MG CAP PO SCH (00:16)
[2025-02-03 03:09] VITALS: BP 152/59; TEMP 96.6; O2SAT 95
[2025-02-03 05:20] LABS: HEMATOCRIT 36.1 % (42.0-52.0); HEMOGLOBIN 11.7 g/dl (13.5-17.5); MEAN CORPUSCULAR HEMOGLOBIN 30.2 pg (27.0-33.0); MEAN CORPUSCULAR HGB CONC 32.4 g/dl (32.0-36.5); RED BLOOD COUNT 3.88 10^6/uL (4.30-6.10); WHITE BLOOD COUNT 5.4 10^3/uL (4.0-10.0)
[2025-02-03 05:24] LABS: PLATELET COUNT, AUTOMATED 78 10^3/uL (150-450)
[2025-02-03] MEDS: LEVOTHYROXINE 75 MCG TABLET (0.075 MG) PO SCH (05:42)
[2025-02-03 05:44] LABS: CREATININE FOR GFR 1.68 MG/DL (0.70-1.30); GLOMERULAR FILTRATION RATE 39.1 (>35); POTASSIUM SERUM 4.6 MMOL/L (3.5-5.1)
[2025-02-03] MEDS: ALBUTEROL SULFATE 2.5 MG/0.5 ML INH CONCENTRATE NEB SOLN NEB ONE (06:13)
[2025-02-03 08:19] VITALS: BP 149/59; TEMP 97; O2SAT 96
[2025-02-03] MEDS: LACOSAMIDE 50 MG TAB PO SCH (08:20)
[2025-02-03] MEDS: OMEPRAZOLE 20MG CAP PO SCH (08:20)
[2025-02-03] MEDS: MONTELUKAST 10 MG TAB PO SCH (08:20)
[2025-02-03] MEDS: amLODIPine 5 MG TAB PO SCH (08:20)
[2025-02-03] MEDS ORDERED: IBRUTINIB 140 MG PO SCH (09:00)
[2025-02-03] MEDS: MINOCYCLINE 50 MG CAP PO SCH (09:56)
[2025-02-03] MEDS ORDERED: FINA5TAB2 PO (11:27)
[2025-02-03] MEDS ORDERED: NORV5TAB PO (11:27)
[2025-02-03] MEDS ORDERED: LASI20TA3 PO (11:27)
[2025-02-03 12:00] VITALS: BP 134/57; TEMP 97; O2SAT 97
[2025-02-03] MEDS ORDERED: FINASTERIDE 5 MG TAB PO SCH (21:00)
== END 2025-02-03 13:49 | disposition home or self-care (01) ==
LOC: M ED 15:07 → EDBD 15:07 → M ED INP 15:08 → M MSPAV 23:30
PROVIDERS: ADMIT Internal Medicine; ATTEND Internal Medicine
DX: I95.1 Orthostatic hypotension (principal); N17.9 Acute kidney failure, unspecified; E87.5 Hyperkalemia; C91.11 Chronic lymphocytic leukemia of B-cell type in remission; C61 Malignant neoplasm of prostate; C83.3A Diffuse large B-cell lymphoma, in remission; Z92.21 Personal history of antineoplastic chemotherapy; I25.10 Atherosclerotic heart disease of native coronary artery without angina pectoris; Z95.1 Presence of aortocoronary bypass graft; I10 Essential (primary) hypertension; I35.2 Nonrheumatic aortic (valve) stenosis with insufficiency; Z95.2 Presence of prosthetic heart valve; I44.7 Left bundle-branch block, unspecified; Z86.73 Personal history of transient ischemic attack (TIA), and cerebral infarction without residual deficits; Z98.890 Other specified postprocedural states; I48.91 Unspecified atrial fibrillation; Z79.899 Other long term (current) drug therapy; Z79.01 Long term (current) use of anticoagulants; Z79.890 Hormone replacement therapy
CPT/HCPCS: 36415; 70450; 71046; 76775; 80048; 80076; 82550; 82553; 84439; 84443; 84484; 85025; 85027; 85049; 85055; 85610; 85730; 93005; 93041; 94760; 96365; 96366; 96375; 97161; 99285; G0378; J0612; J1815

== ENCOUNTER → 2025-02-16 | Outpatient (REF) | payer MEDICARE ==
[~2025-02-16] MED LIST changes: +FINA5TAB2 PO; +LASI20TA3 PO; +NORV5TAB PO
[2025-02-16 13:22] LABS: APPEARANCE, URINE CLEAR (CLEAR); BACTERIA, URINE AUTO NEGATIVE (NEGATIVE); BILIRUBIN, URINE AUTO NEGATIVE (NEGATIVE); BLOOD, URINE BLOOD NEGATIVE (NEGATIVE); COLOR, URINE STRAW (YELLOW); GLUCOSE, URINE (UA) AUTO NEGATIVE (NEGATIVE); KETONE, URINE AUTO NEGATIVE (NEGATIVE); LEUKOCYTE ESTERASE, URINE AUTO NEGATIVE (NEGATIVE); NITRITE, URINE AUTO NEGATIVE (NEGATIVE); PROTEIN, URINE AUTO NEGATIVE (NEGATIVE); RBC, URINE AUTO 0 /HPF (0-3); SPECIFIC GRAVITY URINE AUTO 1.005 (1.002-1.035); SQUAMOUS EPITHELIAL CELL UR AU 0 /HPF (0-6); UROBILINOGEN, URINE AUTO 0.2 mg/dL (0.0-2.0); WBC, URINE AUTO 0 /HPF (0-3)
== END ==
LOC: M SMT 12:58
PROVIDERS: ATTEND Urology
DX: N40.1 Benign prostatic hyperplasia with lower urinary tract symptoms (principal)

== ENCOUNTER 2025-04-23 11:18 | Emergency (ER) | payer MEDICARE, MEDICAID ==
[~2025-04-23] VITALS: Ht 182.9 cm; Wt 88.6 kg
[2025-04-23 11:57] LABS: BASO # 0.0 10^3/uL (0.0-0.2); BASO % 0.1 % (0.0-1.0); EOS # 0.0 10^3/uL (0.0-0.5); EOS % 0.4 % (0.0-3.0); LYMPH # 2.3 10^3/uL (1.5-5.0); LYMPH % 32.6 % (24.0-44.0); MONO # 0.5 10^3/uL (0.0-0.8); MONO % 7.0 % (2.0-8.0); NEUTROPHILS # 4.1 10^3/uL (1.5-8.5); NEUTROPHILS % 59.5 % (36.0-66.0); PLATELET COUNT, AUTOMATED 94 10^3/uL (150-450)
[2025-04-23] MEDS: NS 500 ML IV ONE (12:25)
[2025-04-23 12:37] LABS: ALT/SGPT 15.0 U/L (7.0-40); AST/SGOT 21.0 U/L (<34); CALCIUM LEVEL 9.0 MG/DL (8.3-10.6); CARBON DIOXIDE LEVEL 26.0 MMOL/L (20-31); CHLORIDE LEVEL 104.0 MMOL/L (98-107); CK-MB VALUE MASS 1.4 NG/ML (<3.6); CREATININE FOR GFR 1.67 MG/DL (0.70-1.30); GLOMERULAR FILTRATION RATE 39.4 (>35); POTASSIUM SERUM 5.3 MMOL/L (3.5-5.1); SODIUM LEVEL 140.0 MMOL/L (136-145)
[2025-04-23 12:44] LABS: CPK CREATINE PHOSPHOKINASE 18.0 U/L (46-171); MB/CK RELATIVE INDEX 7.77 (< OR =4)
[2025-04-23] MEDS: PATIROMER SORBITEX CALCIUM 8.4GM POWDER PACKET PO ONE (13:12)
[2025-04-23] MEDS: CALCIUM GLUCONATE 1,000 MG in DEXTROSE 5% (D5W) MINI-BAG PLU 100 ML IV ONE (13:13)
[2025-04-23 13:26] LABS: CK-MB VALUE MASS 1.2 NG/ML (<3.6)
[2025-04-23 13:36] LABS: CPK CREATINE PHOSPHOKINASE < 15 U/L (46-171); MB/CK RELATIVE INDEX 0.00 (< OR =4)
[2025-04-23 13:41] LABS: KETONE, URINE AUTO RFX NEGATIVE (NEGATIVE); LEUKOCYTE ESTERASE UR AUTO RFX NEGATIVE (NEGATIVE); MUCUS, URINE RFX SMALL (NEGATIVE); NITRITE, URINE AUTO RFX NEGATIVE (NEGATIVE); RBC, URINE AUTO RFX 0 /HPF (0-3); SQUAM EPITHELIAL CELL UR AURFX 0 /HPF (0-6); WBC, URINE AUTO RFX 0 /HPF (0-3)
[2025-04-23] MEDS: HumuLIN R (REGULAR) INSULIN (NovoLIN R) **100 U/ML** PER UNIT IV ONE (14:49)
[2025-04-23] MEDS: DEXTROSE 50% 50 ML SYRINGE IV STA (14:50)
[2025-04-23] MEDS ORDERED: HYDR25TA87 PO (15:12)
[2025-04-23 15:25] LABS: CK-MB VALUE MASS 1.3 NG/ML (<3.6)
[2025-04-23 15:26] LABS: CPK CREATINE PHOSPHOKINASE 16.0 U/L (46-171); MB/CK RELATIVE INDEX 8.12 (< OR =4)
[2025-04-23 15:46] VITALS: O2SAT 97
[2025-04-23 17:30] VITALS: BP 141/67; TEMP 98.6; O2SAT 97
== END 2025-04-23 17:50 | disposition home or self-care (01) ==
LOC: EDBD 11:18 → M ED 11:18
DX: I95.1 Orthostatic hypotension (principal); E87.5 Hyperkalemia; I25.10 Atherosclerotic heart disease of native coronary artery without angina pectoris; I11.0 Hypertensive heart disease with heart failure; I25.2 Old myocardial infarction; N40.0 Benign prostatic hyperplasia without lower urinary tract symptoms; Z79.01 Long term (current) use of anticoagulants; Z79.899 Other long term (current) drug therapy; Z88.8 Allergy status to other drugs, medicaments and biological substances
CPT/HCPCS: 70450; 71046; 80047; 80048; 80076; 81001; 82550; 82553; 84443; 84484; 85025; 85049; 85055; 87486; 87581; 87633; 87798; 93005; 93041; 94760; 96374; 96375; 99285; J0612; J1815

== ENCOUNTER 2025-05-03 02:59 | Emergency (ER) | payer MEDICARE ==
[~2025-05-03 02:59] MED LIST changes: +HYDR25TA87 PO
[2025-05-03 03:34] LABS: BASO # 0.0 10^3/uL (0.0-0.2); BASO % 0.2 % (0.0-1.0); EOS # 0.1 10^3/uL (0.0-0.5); EOS % 1.5 % (0.0-3.0); LYMPH # 2.7 10^3/uL (1.5-5.0); LYMPH % 45.1 % (24.0-44.0); MONO # 0.4 10^3/uL (0.0-0.8); MONO % 5.9 % (2.0-8.0); NEUTROPHILS # 2.8 10^3/uL (1.5-8.5); NEUTROPHILS % 47.0 % (36.0-66.0)
[2025-05-03 03:35] LABS: PLATELET COUNT, AUTOMATED 85 10^3/uL (150-450)
[2025-05-03 04:09] LABS: CALCIUM LEVEL 8.9 MG/DL (8.3-10.6); CARBON DIOXIDE LEVEL 23 MMOL/L (20-31); CHLORIDE LEVEL 106 MMOL/L (98-107); CK-MB VALUE MASS < 1.0 NG/ML (<3.6); CPK CREATINE PHOSPHOKINASE 40 U/L (46-171); CREATININE FOR GFR 1.83 MG/DL (0.70-1.30); GLOMERULAR FILTRATION RATE 35.3 (>35); POTASSIUM SERUM 5.1 MMOL/L (3.5-5.1); SODIUM LEVEL 141 MMOL/L (136-145)
[2025-05-03 05:12] LABS: CK-MB VALUE MASS < 1.0 NG/ML (<3.6)
[2025-05-03 05:14] LABS: CPK CREATINE PHOSPHOKINASE 15 U/L (46-171)
[2025-05-03 06:30] VITALS: BP 141/70; TEMP 97.9; O2SAT 98
== END 2025-05-03 06:34 | disposition home or self-care (01) ==
LOC: EDBD 02:59 → M ED 02:59
DX: I11.0 Hypertensive heart disease with heart failure (principal); I25.10 Atherosclerotic heart disease of native coronary artery without angina pectoris; I25.2 Old myocardial infarction; N40.0 Benign prostatic hyperplasia without lower urinary tract symptoms; Z86.73 Personal history of transient ischemic attack (TIA), and cerebral infarction without residual deficits; Z85.6 Personal history of leukemia; Z98.61 Coronary angioplasty status; Z79.01 Long term (current) use of anticoagulants; Z79.899 Other long term (current) drug therapy; Z88.8 Allergy status to other drugs, medicaments and biological substances

== ENCOUNTER 2025-05-15 11:32 | Emergency (ER) | payer MEDICARE ==
[~2025-05-15] VITALS: Ht 182.9 cm; Wt 96.3 kg
[2025-05-15 16:15] VITALS: BP 125/60
[2025-05-15 17:41] VITALS: O2SAT 98
[2025-05-15] MEDS: ACETAMINOPHEN 325 MG TAB PO ONE (17:41)
[2025-05-15 17:58] VITALS: TEMP 97.5
== END 2025-05-15 19:04 | disposition home or self-care (01) ==
LOC: M ED 11:32 → EDBD 11:32 → M ED 19:04
DX: C91.00 Acute lymphoblastic leukemia not having achieved remission (principal); M25.552 Pain in left hip; Z79.01 Long term (current) use of anticoagulants; Z79.899 Other long term (current) drug therapy; Z88.8 Allergy status to other drugs, medicaments and biological substances

== ENCOUNTER → 2025-06-02 | Outpatient (CLI) | payer MEDICARE | LOC: M RAD 08:07 | PROVIDERS: ATTEND Internal Medicine Hematology & Oncology | DX: C85.10 Unspecified B-cell lymphoma, unspecified site (principal) ==

== ENCOUNTER → 2025-06-10 | Outpatient (CLI) | payer MEDICARE ==
[2025-06-10 13:06] LABS: ALT/SGPT 18.0 U/L (7.0-40); AST/SGOT 22.0 U/L (<34); CALCIUM LEVEL 9.1 MG/DL (8.3-10.6); CARBON DIOXIDE LEVEL 28.0 MMOL/L (20-31); CHLORIDE LEVEL 106.0 MMOL/L (98-107); CHOLESTEROL LEVEL 190.0 MG/DL (<200); CHOLESTEROL RISK RATIO 5.65 (<5); CREATININE FOR GFR 1.53 MG/DL (0.70-1.30); GLOMERULAR FILTRATION RATE 43.7 (>35); LDL CHOLESTEROL 136.0 MG/DL (<100); NON-HDL-C 156.4 MG/DL; POTASSIUM SERUM 4.1 MMOL/L (3.5-5.1); SODIUM LEVEL 143.0 MMOL/L (136-145); TRIGLYCERIDES LEVEL 102.0 MG/DL (<150)
[2025-06-10 13:07] LABS: ESTIMATED AVERAGE GLUCOSE 108.0 MG/DL (60-110)
[2025-06-10 13:08] LABS: FREE T4 1.59 NG/DL (0.89-1.76)
== END ==
LOC: M WUC 08:06
PROVIDERS: ATTEND Student in an Organized Health Care Education/Training Program
DX: I10 Essential (primary) hypertension (principal); E03.9 Hypothyroidism, unspecified; Z86.79 Personal history of other diseases of the circulatory system; Z79.899 Other long term (current) drug therapy

== ENCOUNTER 2025-06-22 14:09 | Emergency (ER) | payer MEDICARE ==
[~2025-06-22] VITALS: Ht 182.9 cm; Wt 95.8 kg
[2025-06-22 14:52] LABS: BASO # 0.0 10^3/uL (0.0-0.2); BASO % 0.3 % (0.0-1.0); EOS # 0.1 10^3/uL (0.0-0.5); EOS % 0.7 % (0.0-3.0); LYMPH # 3.4 10^3/uL (1.5-5.0); LYMPH % 47.5 % (24.0-44.0); MONO # 0.5 10^3/uL (0.0-0.8); MONO % 6.5 % (2.0-8.0); NEUTROPHILS # 3.2 10^3/uL (1.5-8.5); NEUTROPHILS % 44.6 % (36.0-66.0)
[2025-06-22 15:18] VITALS: BP 134/60
[2025-06-22] MEDS: NITROGLYCERIN 0.4 MG SUBL TABLET SL PRN (15:18)
[2025-06-22 15:19] LABS: PLATELET COUNT, AUTOMATED 87 10^3/uL (150-450)
[2025-06-22 15:24] LABS: ALT/SGPT 10 U/L (7.0-40); AST/SGOT 15 U/L (<34); CALCIUM LEVEL 8.7 MG/DL (8.3-10.6); CARBON DIOXIDE LEVEL 30 MMOL/L (20-31); CHLORIDE LEVEL 105 MMOL/L (98-107); CPK CREATINE PHOSPHOKINASE < 15 U/L (46-171); CREATININE FOR GFR 1.55 MG/DL (0.70-1.30); GLOMERULAR FILTRATION RATE 43.1 (>35); POTASSIUM SERUM 3.7 MMOL/L (3.5-5.1); SODIUM LEVEL 143 MMOL/L (136-145)
[2025-06-22 15:27] LABS: CK-MB VALUE MASS 1.2 NG/ML (<3.6); MB/CK RELATIVE INDEX 0.00 (< OR =4)
[2025-06-22] MEDS ORDERED: ISOVUE-370 76% 100 ML VIAL As Ordered ONE (17:14)
[2025-06-22 17:45] LABS: CK-MB VALUE MASS 1.1 NG/ML (<3.6)
[2025-06-22 17:48] LABS: CPK CREATINE PHOSPHOKINASE 20.0 U/L (46-171); MB/CK RELATIVE INDEX 5.5 (< OR =4)
[2025-06-22 18:58] LABS: CK-MB VALUE MASS 1.0 NG/ML (<3.6)
[2025-06-22 19:02] LABS: CPK CREATINE PHOSPHOKINASE 26.0 U/L (46-171); MB/CK RELATIVE INDEX 3.84 (< OR =4)
[2025-06-22 19:30] VITALS: BP 179/77; O2SAT 98
[2025-06-22 19:37] VITALS: TEMP 97.9
== END 2025-06-22 20:27 | disposition home or self-care (01) ==
LOC: EDBD 14:09 → M ED 14:09
DX: R07.9 Chest pain, unspecified (principal); C91.10 Chronic lymphocytic leukemia of B-cell type not having achieved remission; Z85.46 Personal history of malignant neoplasm of prostate; Z95.1 Presence of aortocoronary bypass graft; Z79.01 Long term (current) use of anticoagulants; Z79.899 Other long term (current) drug therapy; Z88.8 Allergy status to other drugs, medicaments and biological substances
CPT/HCPCS: 71045; 71275; 80048; 80076; 82550; 82553; 83690; 83880; 84484; 85025; 85049; 85055; 93005; 93041; 94760; 99285; G0463; Q9967

== ENCOUNTER → 2025-06-24 | Outpatient (CLI) | payer MEDICARE | LOC: M WUC 08:15 | PROVIDERS: ATTEND Urology | DX: C61 Malignant neoplasm of prostate (principal) ==

== ENCOUNTER 2025-06-26 04:38 | Emergency (ER) | payer MEDICARE ==
[~2025-06-26] VITALS: Ht 182.9 cm; Wt 90.9 kg
[2025-06-26 05:22] LABS: PLATELET COUNT, AUTOMATED 73 10^3/uL (150-450)
[2025-06-26 05:35] LABS: INR 1.05
[2025-06-26 05:38] LABS: CK-MB VALUE MASS 1.8 NG/ML (<3.6)
[2025-06-26 05:40] LABS: CALCIUM LEVEL 8.1 MG/DL (8.3-10.6); CARBON DIOXIDE LEVEL 26.0 MMOL/L (20-31); CHLORIDE LEVEL 108.0 MMOL/L (98-107); CREATININE FOR GFR 1.54 MG/DL (0.70-1.30); GLOMERULAR FILTRATION RATE 43.4 (>35); POTASSIUM SERUM 3.9 MMOL/L (3.5-5.1); SODIUM LEVEL 144.0 MMOL/L (136-145)
[2025-06-26 05:42] LABS: CPK CREATINE PHOSPHOKINASE 34.0 U/L (46-171); MB/CK RELATIVE INDEX 5.29 (< OR =4)
[2025-06-26 06:05] LABS: ATYPICAL LYMPH 2 % (0-5); EOSINOPHILS 3 % (0-3); LYMPHOCYTES 59 % (16-44); MONOCYTES 5 % (0-5); NEUTROPHILS 31 % (28-66)
[2025-06-26 06:06] LABS: PLATELET ESTIMATE DECREASED (NORMAL)
[2025-06-26 07:17] LABS: CK-MB VALUE MASS 1.7 NG/ML (<3.6)
[2025-06-26 07:21] LABS: CPK CREATINE PHOSPHOKINASE 28.0 U/L (46-171); MB/CK RELATIVE INDEX 6.07 (< OR =4)
[2025-06-26] MEDS: SUCRALFATE SUSP 1GM/10ML UD PO ONE (08:48)
[2025-06-26] MEDS: PANTOPRAZOLE 40MG VIAL IV ONE (08:48)
[2025-06-26 11:15] VITALS: BP 138/63
[2025-06-26] MEDS ORDERED: OMEP1CAP73 PO (11:19)
[2025-06-26] MEDS ORDERED: CARA1TAB6 PO (11:19)
[2025-06-26 11:45] VITALS: TEMP 97.6; O2SAT 98
== END 2025-06-26 12:08 | disposition home or self-care (01) ==
LOC: M ED 04:38
DX: R07.9 Chest pain, unspecified (principal); I12.9 Hypertensive chronic kidney disease with stage 1 through stage 4 chronic kidney disease, or unspecified chronic kidney disease; Z85.72 Personal history of non-Hodgkin lymphomas; Z85.6 Personal history of leukemia; Z85.46 Personal history of malignant neoplasm of prostate; Z85.820 Personal history of malignant melanoma of skin; Z95.2 Presence of prosthetic heart valve; Z79.01 Long term (current) use of anticoagulants; Z79.899 Other long term (current) drug therapy; Z88.8 Allergy status to other drugs, medicaments and biological substances
CPT/HCPCS: 71045; 80048; 82550; 82553; 84484; 85025; 85049; 85055; 85610; 85730; 87486; 87581; 87633; 87798; 93005; 93041; 94760; 99285; J2470

== ENCOUNTER → 2025-07-07 | Outpatient (CLI) | payer MEDICARE ==
[~2025-07-07] MED LIST changes: +CARA1TAB6 PO
== END ==
LOC: M WUC 08:50
PROVIDERS: ATTEND Student in an Organized Health Care Education/Training Program
DX: R07.89 Other chest pain (principal); R06.02 Shortness of breath

== ENCOUNTER → 2025-07-08 | Outpatient (CLI) | payer MEDICARE | LOC: M RAD 09:30 | PROVIDERS: ATTEND Student in an Organized Health Care Education/Training Program | DX: R06.02 Shortness of breath (principal) ==

== ENCOUNTER → 2025-07-14 | Outpatient (CLI) | payer MEDICARE ==
[2025-07-14 13:14] LABS: CALCIUM LEVEL 8.8 MG/DL (8.3-10.6); CARBON DIOXIDE LEVEL 29.0 MMOL/L (20-31); CHLORIDE LEVEL 107.0 MMOL/L (98-107); CREATININE FOR GFR 1.5 MG/DL (0.70-1.30); GLOMERULAR FILTRATION RATE 44.8 (>35); POTASSIUM SERUM 3.3 MMOL/L (3.5-5.1); SODIUM LEVEL 149.0 MMOL/L (136-145)
== END ==
LOC: M WUC 08:33
PROVIDERS: ATTEND Student in an Organized Health Care Education/Training Program
DX: I10 Essential (primary) hypertension (principal)

== ENCOUNTER → 2025-07-26 | Outpatient (CLI) | payer MEDICARE ==
[~2025-07-26] MED LIST changes: +[UNRECOGNIZED DRUG - CODE] PO
== END ==
LOC: M CARPUL 14:13
PROVIDERS: ATTEND Student in an Organized Health Care Education/Training Program
DX: R07.89 Other chest pain (principal)

== ENCOUNTER 2025-09-14 15:16 | Emergency (ER) | payer MEDICARE, MEDICAID ==
[~2025-09-14] VITALS: Ht 182.9 cm; Wt 100.8 kg
[~2025-09-14 15:16] MED LIST changes: +LEVO88TA3 PO; +POTA1TAB23
[2025-09-14 17:19] LABS: ALT/SGPT 21 U/L (7.0-40); AST/SGOT 25 U/L (<34); C REACTIVE PROTEIN QUANTITATIV < 0.50 MG/DL (<1.0); CALCIUM LEVEL 8.7 MG/DL (8.3-10.6); CARBON DIOXIDE LEVEL 23 MMOL/L (20-31); CHLORIDE LEVEL 107 MMOL/L (98-107); CPK CREATINE PHOSPHOKINASE 20 U/L (46-171); CREATININE FOR GFR 1.60 MG/DL (0.70-1.30); GLOMERULAR FILTRATION RATE 41.4 (>35); POTASSIUM SERUM 4.0 MMOL/L (3.5-5.1); SODIUM LEVEL 141 MMOL/L (136-145)
[2025-09-14 17:20] LABS: BASO # 0.0 10^3/uL (0.0-0.2); BASO % 0.2 % (0.0-1.0); EOS # 0.1 10^3/uL (0.0-0.5); EOS % 0.9 % (0.0-3.0); LYMPH # 4.7 10^3/uL (1.5-5.0); LYMPH % 57.7 % (24.0-44.0); MONO # 0.5 10^3/uL (0.0-0.8); MONO % 5.6 % (2.0-8.0); NEUTROPHILS # 2.8 10^3/uL (1.5-8.5); NEUTROPHILS % 34.9 % (36.0-66.0); PLATELET COUNT, AUTOMATED 105 10^3/uL (150-450)
[2025-09-14 17:22] LABS: OSMOLALITY SERUM 297 MOSM/KG (280-301)
[2025-09-14] MEDS: MORPHINE 4 MG/ML 1 ML VIAL IV PRN (19:21)
[2025-09-14] MEDS ORDERED: TORS10TA3 PO (20:15)
[2025-09-14] MEDS ORDERED: METO1TAB32 PO (20:16)
[2025-09-14] MEDS ORDERED: HOME MED LIST COMPLETE! XX SCH (20:20)
[2025-09-14 21:45] VITALS: BP 147/67; TEMP 97.8; O2SAT 94
[2025-09-14] MEDS: traMADol 50 MG TAB (HOME DOSE PACK) PO ONE (22:03)
== END 2025-09-14 22:16 | disposition home or self-care (01) ==
LOC: EDBD 15:16 → M ED 15:16
DX: M79.18 Myalgia, other site (principal); M43.06 Spondylolysis, lumbar region; M48.061 Spinal stenosis, lumbar region without neurogenic claudication; G31.9 Degenerative disease of nervous system, unspecified; I25.10 Atherosclerotic heart disease of native coronary artery without angina pectoris; I48.91 Unspecified atrial fibrillation; Z79.01 Long term (current) use of anticoagulants; Z85.72 Personal history of non-Hodgkin lymphomas; I10 Essential (primary) hypertension; R94.31 Abnormal electrocardiogram [ECG] [EKG]; Z85.46 Personal history of malignant neoplasm of prostate; Z85.6 Personal history of leukemia; E03.9 Hypothyroidism, unspecified; N18.9 Chronic kidney disease, unspecified; Z88.6 Allergy status to analgesic agent; Z79.890 Hormone replacement therapy; Z79.899 Other long term (current) drug therapy

== ENCOUNTER 2025-09-17 12:16 | Emergency (ER) | payer MEDICARE, MEDICAID ==
[~2025-09-17] VITALS: Ht 182.9 cm; Wt 95.5 kg
[~2025-09-17 12:16] MED LIST changes: +METO1TAB32 PO; +TORS10TA3 PO
[2025-09-17 13:02] LABS: PLATELET COUNT, AUTOMATED 104 10^3/uL (150-450)
[2025-09-17 13:28] LABS: CK-MB VALUE MASS 1.2 NG/ML (<3.6)
[2025-09-17 13:31] LABS: CPK CREATINE PHOSPHOKINASE 20.0 U/L (46-171); MB/CK RELATIVE INDEX 6.0 (< OR =4)
[2025-09-17 13:40] LABS: ALT/SGPT 16.0 U/L (7.0-40); AST/SGOT 21.0 U/L (<34)
[2025-09-17 14:00] LABS: CALCIUM LEVEL 8.7 MG/DL (8.3-10.6); CARBON DIOXIDE LEVEL 25.0 MMOL/L (20-31); CHLORIDE LEVEL 106.0 MMOL/L (98-107); CREATININE FOR GFR 1.75 MG/DL (0.70-1.30); GLOMERULAR FILTRATION RATE 37.2 (>35); POTASSIUM SERUM 4.2 MMOL/L (3.5-5.1); SODIUM LEVEL 141.0 MMOL/L (136-145)
[2025-09-17 14:56] LABS: ATYPICAL LYMPH 10 % (0-5); LYMPHOCYTES 47 % (16-44); MONOCYTES 6 % (0-5); NEUTROPHILS 37 % (28-66)
[2025-09-17 14:57] LABS: PLATELET ESTIMATE DECREASED (NORMAL)
[2025-09-17] MEDS ORDERED: TRAM50TA2 PO (16:52)
[2025-09-17] MEDS: traMADol 50 MG TAB PO ONE (17:27)
[2025-09-17] MEDS: FUROSEMIDE 20 MG/2 ML VIAL IV ONE (17:28)
[2025-09-17 17:30] VITALS: BP 140/66
[2025-09-17 18:01] VITALS: TEMP 98.6; O2SAT 95
== END 2025-09-17 18:15 | disposition home or self-care (01) ==
LOC: M ED 12:16 → CANBEDREQ 16:56 → M ED 18:15
DX: R60.0 Localized edema (principal); R53.1 Weakness; I10 Essential (primary) hypertension; E78.5 Hyperlipidemia, unspecified; N40.1 Benign prostatic hyperplasia with lower urinary tract symptoms; Z85.46 Personal history of malignant neoplasm of prostate; Z86.73 Personal history of transient ischemic attack (TIA), and cerebral infarction without residual deficits; K21.9 Gastro-esophageal reflux disease without esophagitis; Z95.1 Presence of aortocoronary bypass graft; Z79.01 Long term (current) use of anticoagulants; Z79.899 Other long term (current) drug therapy; Z88.8 Allergy status to other drugs, medicaments and biological substances

== ENCOUNTER 2025-09-19 12:02 | Inpatient (IN) | payer MEDICARE, MEDICAID ==
[~2025-09-19] VITALS: Ht 182.9 cm; Wt 94.9 kg
[~2025-09-19 12:02] MED LIST changes: +TRAM50TA2 PO
[2025-09-19 12:37] LABS: PLATELET COUNT, AUTOMATED 101 10^3/uL (150-450)
[2025-09-19 13:08] LABS: ATYPICAL LYMPH 5 % (0-5); CK-MB VALUE MASS 1.1 NG/ML (<3.6); LYMPHOCYTES 46 % (16-44); MONOCYTES 5 % (0-5); NEUTROPHILS 43 % (28-66); PLATELET ESTIMATE DECREASED (NORMAL)
[2025-09-19 13:11] LABS: ALT/SGPT 13.0 U/L (7.0-40); AST/SGOT 26.0 U/L (<34); CALCIUM LEVEL 8.6 MG/DL (8.3-10.6); CARBON DIOXIDE LEVEL 24.0 MMOL/L (20-31); CHLORIDE LEVEL 105.0 MMOL/L (98-107); CREATININE FOR GFR 1.81 MG/DL (0.70-1.30); GLOMERULAR FILTRATION RATE 35.7 (>35); POTASSIUM SERUM 4.3 MMOL/L (3.5-5.1); SODIUM LEVEL 140.0 MMOL/L (136-145)
[2025-09-19 13:12] LABS: CPK CREATINE PHOSPHOKINASE 23.0 U/L (46-171); FREE T4 1.49 NG/DL (0.89-1.76); MB/CK RELATIVE INDEX 4.78 (< OR =4)
[2025-09-19] MEDS: FUROSEMIDE 40 MG/4 ML VIAL IV ONE (14:11)
[2025-09-19] MEDS ORDERED: HOME MED LIST COMPLETE! XX SCH (15:00)
[2025-09-19] MEDS ORDERED: traMADol 50 MG TAB PO PRN (15:50)
[2025-09-19 16:58] VITALS: BP 160/72; TEMP 97; O2SAT 93
[2025-09-19] MEDS: FUROSEMIDE 40 MG/4 ML VIAL IV SCH (17:22)
[2025-09-19 19:45] VITALS: BP 157/69; TEMP 97.2; O2SAT 94
[2025-09-19] MEDS: METOPROLOL SUCC. 25 MG *XL* TAB PO SCH (20:06)
[2025-09-19] MEDS: MINOCYCLINE 50 MG CAP PO SCH (21:06)
[2025-09-19] MEDS: HEPARIN SOD 5000 UNITS/ML 1 ML VIAL/SYRINGE SC SCH (22:46)
[2025-09-19 23:47] VITALS: BP 145/66; TEMP 97.3; O2SAT 95
[2025-09-20 03:40] VITALS: BP 180/74; TEMP 97.4; O2SAT 94
[2025-09-20 04:10] VITALS: BP 166/58
[2025-09-20 06:18] LABS: ALT/SGPT 10.0 U/L (7.0-40); AST/SGOT 18.0 U/L (<34); CALCIUM LEVEL 8.9 MG/DL (8.3-10.6); CARBON DIOXIDE LEVEL 27.0 MMOL/L (20-31); CHLORIDE LEVEL 105.0 MMOL/L (98-107); CREATININE FOR GFR 1.91 MG/DL (0.70-1.30); GLOMERULAR FILTRATION RATE 33.5 (>35); MAGNESIUM LEVEL 2.1 MG/DL (1.8-2.4); POTASSIUM SERUM 3.9 MMOL/L (3.5-5.1); SODIUM LEVEL 142.0 MMOL/L (136-145)
[2025-09-20 06:45] LABS: PLATELET COUNT, AUTOMATED 90 10^3/uL (150-450)
[2025-09-20] MEDS: LEVOTHYROXINE 88 MCG TABLET (0.088 MG) PO SCH (06:53)
[2025-09-20 08:12] VITALS: BP 166/72; TEMP 97.7; O2SAT 97
[2025-09-20] MEDS: ATORVASTATIN 20 MG TAB PO SCH (09:31)
[2025-09-20] MEDS: OMEPRAZOLE 20MG CAP PO SCH (09:31)
[2025-09-20] MEDS: LACOSAMIDE 50 MG TAB PO SCH (09:31)
[2025-09-20] MEDS: FLUZONE HIGH DOSE (65+) 0.5 ML SYRINGE (25-26) IM.IMMUN ONE (09:50)
[2025-09-20 13:30] VITALS: BP 159/70; TEMP 97.6; O2SAT 97
[2025-09-20 20:36] VITALS: BP 166/72; TEMP 97.8; O2SAT 96
[2025-09-21 03:55] VITALS: BP 138/65; TEMP 97.9; O2SAT 99
[2025-09-21 06:23] LABS: PLATELET COUNT, AUTOMATED 90 10^3/uL (150-450)
[2025-09-21 06:38] LABS: ALT/SGPT 11.0 U/L (7.0-40); AST/SGOT 17.0 U/L (<34); CALCIUM LEVEL 8.7 MG/DL (8.3-10.6); CARBON DIOXIDE LEVEL 28.0 MMOL/L (20-31); CHLORIDE LEVEL 104.0 MMOL/L (98-107); CREATININE FOR GFR 1.87 MG/DL (0.70-1.30); GLOMERULAR FILTRATION RATE 34.4 (>35); MAGNESIUM LEVEL 2.1 MG/DL (1.8-2.4); POTASSIUM SERUM 3.8 MMOL/L (3.5-5.1); SODIUM LEVEL 144.0 MMOL/L (136-145)
[2025-09-21 12:00] VITALS: BP 129/61; TEMP 98; O2SAT 97
[2025-09-21 13:20] VITALS: BP_SYST 149; BP_SYST 161; BP_SYST 164; BP_DIAS 63; BP_DIAS 72
[2025-09-21 14:43] VITALS: BP 163/70; O2SAT 99
[2025-09-21 20:35] VITALS: BP 158/70; TEMP 97.9; O2SAT 97
[2025-09-22 03:58] VITALS: BP 146/69; TEMP 98.3; O2SAT 96
[2025-09-22 06:29] LABS: PLATELET COUNT, AUTOMATED 85 10^3/uL (150-450)
[2025-09-22 06:45] LABS: ALT/SGPT 11.0 U/L (7.0-40); AST/SGOT 17.0 U/L (<34); CALCIUM LEVEL 8.4 MG/DL (8.3-10.6); CARBON DIOXIDE LEVEL 29.0 MMOL/L (20-31); CHLORIDE LEVEL 106.0 MMOL/L (98-107); CREATININE FOR GFR 1.89 MG/DL (0.70-1.30); GLOMERULAR FILTRATION RATE 33.9 (>35); MAGNESIUM LEVEL 1.9 MG/DL (1.8-2.4); POTASSIUM SERUM 3.9 MMOL/L (3.5-5.1); SODIUM LEVEL 144.0 MMOL/L (136-145)
[2025-09-22 08:17] VITALS: BP_SYST 100; BP_SYST 134; BP_SYST 135; BP_DIAS 58; BP_DIAS 62; BP_DIAS 65
[2025-09-22 08:25] VITALS: BP 135/62
[2025-09-22] MEDS ORDERED: TORS10TA3 PO (12:22)
[2025-09-22 13:16] VITALS: BP 150/72; TEMP 97.6; O2SAT 99
== END 2025-09-22 14:18 | disposition home health service (06) | DRG 291 ==
LOC: EDBD 12:02 → M ED 12:02 → M ED INP 15:41 → M PCU 16:54 → M MSPAV 09-20 13:28
PROVIDERS: ADMIT Internal Medicine; ATTEND Student in an Organized Health Care Education/Training Program
DX: I13.0 Hypertensive heart and chronic kidney disease with heart failure and stage 1 through stage 4 chronic kidney disease, or unspecified chronic kidney disease (principal); I50.33 Acute on chronic diastolic (congestive) heart failure; C83.3A Diffuse large B-cell lymphoma, in remission; Z66 Do not resuscitate; C61 Malignant neoplasm of prostate; I25.10 Atherosclerotic heart disease of native coronary artery without angina pectoris; I95.1 Orthostatic hypotension; T50.2X5A Adverse effect of carbonic-anhydrase inhibitors, benzothiadiazides and other diuretics, initial encounter; I48.91 Unspecified atrial fibrillation; K21.9 Gastro-esophageal reflux disease without esophagitis; E03.9 Hypothyroidism, unspecified; N18.9 Chronic kidney disease, unspecified; G89.29 Other chronic pain; Z79.890 Hormone replacement therapy; Z79.899 Other long term (current) drug therapy; Z88.6 Allergy status to analgesic agent; Z95.5 Presence of coronary angioplasty implant and graft; Z95.2 Presence of prosthetic heart valve